=== PATIENT | female | born 1940 | race Caucasian/White ===

== ENCOUNTER → 2020-06-22 10:48 | Outpatient (BNVA) | payer MEDICARE, SELFPAY | PROVIDERS: PCP Internal Medicine; Visit Provider Nurse Practitioner Family | DX: I49.3 Ventricular premature depolarization (principal); I10 Essential (primary) hypertension; I06.1 Rheumatic aortic insufficiency | CPT/HCPCS: Q3014 ==

== ENCOUNTER → 2020-07-04 10:03 | Outpatient (REF) | payer MEDICARE, SELFPAY ==
--- NOTE | 2020-07-04 10:50 | ECG_ITS ---
Hook-up date: 2020-07-04 11:20:00 Duration: 27:13:00 Test Indications: VENTRICULAR PREMATURE DEPOL Medications: 573137 QRS complexes 2434 Ventricular ectopics which represent 2 % of total QRS comp. 13541 Supraventricular ectopics which represent 11 % of total QRS comp. * Paced QRS complexs which represent % of total QRS comp. VENTRICULAR ECTOPY 2387 Isolated 49 Bigeminal Cycles 22 Couplets 1 Runs 3 Beats in Runs 3 Beats LONGEST at 76 BPM at 13:32:22 2020-07-04 3 Beats FASTEST at 76 BPM at 13:32:22 2020-07-04 SUPRAVENTRICULAR ECTOPY 6414 Isolated 3410 Couplets 25 Runs 75 Beats in Runs 3 Beats LONGEST at 119 BPM at 11:51:20 2020-07-04 3 Beats FASTEST at 132 BPM at 11:09:55 2020-07-05 HEART RATES 34 MIN at 10:03:12 2020-07-05 77 AVG 118 MAX at 17:55:12 2020-07-04 LONGEST RR 3.5280 secs at 09:52:42 2020-07-05 S-T LEVELS Channel 1 - 128 mm at 11:20:00 2020-07-04 - 128 mm at 11:20:00 2020-07-04 Channel 2 - 128 mm at 11:20:00 2020-07-04 - 128 mm at 11:20:00 2020-07-04 Channel 3 - 128 mm at 03:03:91 -- - 128 mm at 03:03:91 Underlying rhythm is sinus; Average ventricular rate 77/min; range 34-118/min; About 5% of the time, rate <60/min; Pauses noted, longest 3.5sec at 09:52hrs; similar pauses around the same time; Patient diary not available for review. Referred By: Clair Dolan Overread By: ARMANDO DRUMMOND
== END ==
LOC: HO.CARD 10:03
PROVIDERS: PCP Internal Medicine; Visit Provider Nurse Practitioner Family
DX: I49.3 Ventricular premature depolarization (principal)
CPT/HCPCS: 93226

== ENCOUNTER → 2020-07-23 11:12 | Outpatient (BNVA) | payer MEDICARE, SELFPAY | PROVIDERS: PCP Family Medicine; Visit Provider Nurse Practitioner Family | DX: I49.3 Ventricular premature depolarization (principal); I10 Essential (primary) hypertension; R00.1 Bradycardia, unspecified; I06.1 Rheumatic aortic insufficiency; E78.5 Hyperlipidemia, unspecified; Z78.9 Other specified health status | CPT/HCPCS: Q3014 ==

== ENCOUNTER → 2020-10-25 09:18 | Outpatient (BNVA) | payer MEDICARE, SELFPAY | PROVIDERS: PCP Family Medicine; Visit Provider Nurse Practitioner Family | DX: I49.3 Ventricular premature depolarization (principal); I10 Essential (primary) hypertension; R00.1 Bradycardia, unspecified; I06.1 Rheumatic aortic insufficiency; E78.5 Hyperlipidemia, unspecified; Z78.9 Other specified health status | CPT/HCPCS: 93005; 99212 ==

== ENCOUNTER 2020-10-29 10:35 | Outpatient (REF) | payer MEDICARE, SELFPAY ==
[2020-10-29 12:37] LABS: Hematocrit 48.9 % (37-47); Mean Corpuscular HGB Conc 32.7 g/dl (31.0-35.0); Mean Corpuscular Volume 88.7 fL (80-98); Platelet Count 224 X10*3/uL (160-400); Red Blood Count 5.51 X10*6/uL (4.20-5.50); Red Cell Distribution Width 13.3 % (11.0-16.0); White Blood Count 4.6 X10*3/uL (4.8-10.8)
[2020-10-29 13:12] LABS: B Type Natriuretic Peptide 282 pg/mL (<100)
[2020-10-29 13:23] LABS: Anion Gap 13 (12-20); Blood Urea Nitrogen 21 mg/dL (9-16); Calcium 9.9 mg/dL (8.4-10.2); Carbon Dioxide 28 mmol/L (22-29); Chloride 102 mmol/L (96-108); Cholesterol 352 mg/dL; Estimated Glomerular Filt Rate 56; Glucose Random 100 mg/dL (60-115); HDL Cholesterol 48 mg/dL; LDL Cholesterol Calculated 250 mg/dl; Potassium 4.9 mmol/L (3.3-5.1); Sodium 138 mmol/L (135-145); Triglycerides 273 mg/dL
--- NOTE | 2020-10-29 13:30 | ECG_ITS ---
Hook-up date: 2020-10-29 11:29:00 Duration: 26:53:00 Test Indications: SOB Medications: 212211 QRS complexes 45 Ventricular ectopics which represent <1 % of total QRS comp. 9132 Supraventricular ectopics which represent 9 % of total QRS comp. * Paced QRS complexs which represent % of total QRS comp. VENTRICULAR ECTOPY 45 Isolated 0 Bigeminal Cycles 0 Couplets 0 Runs 0 Beats in Runs * Beats LONGEST at * BPM at :: -- * Beats FASTEST at * BPM at :: -- SUPRAVENTRICULAR ECTOPY 6529 Isolated 1224 Couplets 47 Runs 155 Beats in Runs 6 Beats LONGEST at 104 BPM at 16:09:58 2020-10-29 4 Beats FASTEST at 212 BPM at 18:06:25 2020-10-29 HEART RATES 36 MIN at 07:19:31 2020-10-30 71 AVG 125 MAX at 12:01:25 2020-10-29 LONGEST RR 2.9280 secs at 06:55:01 2020-10-30 S-T LEVELS Channel 1 - 128 mm at 11:29:00 2020-10-29 - 128 mm at 11:29:00 2020-10-29 Channel 2 - 128 mm at 11:29:00 2020-10-29 - 128 mm at 11:29:00 2020-10-29 Channel 3 - 128 mm at 03:04:81 -- - 128 mm at 03:04:81 Underlying rhythm is sinus; Average ventricular rate 71/min; range 36-125/min; Sinus pauses noted in side door man hours, longest about 2.92 seconds; Occasional junctional beats- side door man hours; Frequent supraventricular ectopy- 9%; mostly isolated, some couplets, short runs upto 6 beats; Rare PVCs; Shortness of breath in diary associated with sinus rhythm. Referred By: Clair Dolan Overread By: ARMANDO DRUMMOND
[2020-10-29 13:31] LABS: TSH reflex Free T4 2.05 uIU/mL (0.32-4.0)
== END 2020-10-29 10:36 | disposition home or self-care (01) ==
LOC: HO.LAB 10:35
PROVIDERS: PCP Family Medicine; Visit Provider Nurse Practitioner Family
DX: E78.5 Hyperlipidemia, unspecified (principal); R06.02 Shortness of breath; I49.3 Ventricular premature depolarization; I06.1 Rheumatic aortic insufficiency; I10 Essential (primary) hypertension; Z78.9 Other specified health status
CPT/HCPCS: 36415; 80048; 80061; 83880; 84443; 85027; 93005; 93226; 99212

== ENCOUNTER → 2020-11-05 07:49 | Outpatient (REF) | payer MEDICARE, SELFPAY ==
--- NOTE | ~2020-11-05 | NM_ITS ---
Myocardial perfusion study Indication: Shortness of breath and chest pain to evaluate for myocardial ischemia Technique: The patient was brought in for a Lexiscan perfusion study on 11/05/2020. Patient performed low-level exercise and was injected 0.4 mg of Lexiscan intravenously. Within a minute of injection, 30 mCi of sestamibi was given intravenously. Images were obtained using the SPECT gamma camera interlaced with the gating device. Images were obtained in supine position. Resting perfusion study was performed on 11/06/2020. Patient was administered 30 mCi of sestamibi intravenously at rest. Images were then obtained in supine position. Images obtained with and without CT attenuation. Total DLP 110 mGy-cm. Images were processed with the software and compared side to side in short axis, horizontal long axis and vertical long axis views. Findings: The stress perfusion study showed non attenuated images show normal uptake of radiotracer in all segments of LV myocardium. Attenuation corrected images show mildly reduced uptake in the apex of the LV myocardium. The gated study shows normal LV systolic function with calculated LVEF of 71%. LV cavity is normal in size. The gated study shows normal systolic wall thickening and contraction of segments. Resting study shows no change in perfusion pattern compared to stress perfusion study. Gating at rest reveals normal systolic wall motion with ejection fraction at 70%. The findings are consistent with normal myocardial perfusion. NM/NM abraham perf SPECT rest & str Impression: 1. Myocardial perfusion imaging study shows normal myocardial perfusion 2. Gated LVEF is 71% 3. Transient ischemic dilatation not present EKG is nondiagnostic for ischemia
--- NOTE | 2020-11-05 08:00 | CA_ITS ---
Acquisition Time: 2020-11-05 08:06:29 Total Exercise Time: 00:02:00 Test Indications: Dyspnea Medications: SEE H Protocol: LEXISCAN Max HR: 083 BPM 60% of Pred: 138 BPM Max BP: 160/060 mmHG Max Work Load: 1.0 METS Pharmacological stress test using Lexiscan while sitting. Pt tolerated well, denies any anginal sx. Sx of H/A reversed with aminophyline. EKG after Lexiscan as HR increased pt going into junctional rhythm in and out. Bigerminy's, Non-diagnostic for ischemia. Nuclear images to follow. Normotensive response to test. Test reviewed with Dr. Brito. Referred By: Clair Dolan Overread By: Bushra Null NP
== END ==
LOC: HO.CARD 07:49
PROVIDERS: Visit Provider Nurse Practitioner Family
DX: R07.89 Other chest pain (principal); R00.1 Bradycardia, unspecified; R06.02 Shortness of breath
CPT/HCPCS: 78452; 93016; 93017; 93018; A9500; J0280; J2785

== ENCOUNTER → 2020-11-12 11:19 | Outpatient (BNVA) | payer MEDICARE, SELFPAY | PROVIDERS: PCP Family Medicine; Visit Provider Nurse Practitioner Family | DX: R06.02 Shortness of breath (principal); I49.3 Ventricular premature depolarization; I10 Essential (primary) hypertension; E00.1 Congenital iodine-deficiency syndrome, myxedematous type; I06.1 Rheumatic aortic insufficiency; E78.5 Hyperlipidemia, unspecified; Z78.9 Other specified health status; Z79.899 Other long term (current) drug therapy | CPT/HCPCS: 93005; 99212 ==

== ENCOUNTER 2020-11-23 09:40 | Day surgery (SDC) | payer MEDICARE, SELFPAY ==
[2020-11-16 15:10] VITALS: BMI 39.5
--- NOTE | 2020-11-21 12:28 | P.CONAN_ITS ---
HPI - Anesthesia Eval Consult details Narrative: 80yo F for Pacemaker Insertion, Dual Mult med allergies PMFSH Active Problems Active Problems: All Active Problems (Updated 11/19/20 @ 09:58 by Roro Espinoza PA-C) Bradycardia (Acute) Shortness of breath (Acute) Chest discomfort (Acute) Junctional bradycardia (Acute) Sinus pause (Acute) PAC (premature atrial contraction) (Acute) Lightheadedness (Acute) Statin intolerance (Acute) HLD (hyperlipidemia) (Acute) Rheumatic aortic regurgitation (Acute) HTN (hypertension) (Acute) PVC (premature ventricular contraction) (Acute) Past Medical History Medical History (Updated 11/23/20 @ 14:36 by Roro Espinoza PA-C) Anxiety Arthritis Bradycardia COVID-19 vaccine series completed H/O shortness of breath Hepatitis HLD (hyperlipidemia) HTN (hypertension) Hx of cancer of uterus Junctional bradycardia PAC (premature atrial contraction) Pacemaker (~11/2020) PVC (premature ventricular contraction) Rheumatic aortic regurgitation Sinus pause Statin intolerance Family History Family History Father HTN (hypertension) Mother No problems noted. Surgical History Surgical History (Updated 11/23/20 @ 14:36 by Roro Espinoza PA-C) H/O: hysterectomy History of cataract extraction History of pacemaker (~11/2020) Hx of colonoscopy Hx of tonsillectomy Social History Social History Household Members: Spouse Housing: House Housing Other:: Resides at [facility] Are you a primary disabilities caregiver to a significant other at home: No Do you presently have visiting nurse or other home services: No Smoking Status: Former smoker Years Smoked: > 45 yrs ago service: No Current occupational status: retired Meds Allergies Allergy/AdvReac Type Severity Reaction Status Date / Time hydrochlorothiazide Allergy Severe Unknown Verified 11/16/20 15:03 penicillin V Allergy Severe unk Verified 11/16/20 15:03 Penicillins [PENICILLINS] Allergy Severe DIFFICULTY Verified 11/16/20 15:03 BREATHING sertraline [Zoloft] Allergy Severe unk Verified 11/16/20 15:03 clindamycin [CLINDAMYCIN] Allergy Unknown RASH Verified 11/16/20 15:03 clonazepam [CLONAZEPAM] Allergy Unknown DIZZINESS, Verified 11/16/20 15:03 dizzy nausea lisinopril Allergy Unknown didn't Verified 11/16/20 15:03 feel well on med losartan Allergy Unknown didn't Verified 11/16/20 15:03 feel well on med metoprolol Allergy Unknown didn't Verified 11/16/20 15:03 feel well on med paroxetine [From PAXIL] Allergy Unknown UNKNOWN Verified 11/16/20 15:03 propranolol Allergy Unknown sick Verified 11/16/20 15:03 risedronate sodium Allergy Unknown UNKNOWN Verified 11/16/20 15:03 [From ACTONEL] valsartan Allergy Unknown didn't Verified 11/16/20 15:03 feel well on med benzalkonium chloride AdvReac Unknown CONFUSION Verified 11/16/20 15:03 [From TRAVATAN] escitalopram [From LEXAPRO] AdvReac Unknown AGITATION Verified 11/16/20 15:03 red yeast rice AdvReac Unknown STOMACH Verified 11/16/20 15:03 [RED YEAST RICE] UPSET timolol [From ISTALOL] AdvReac Unknown CONFUSION Verified 11/16/20 15:03 travoprost [From TRAVATAN] AdvReac Unknown CONFUSION Verified 11/16/20 15:03 Travatan Allergy Severe unk Uncoded 11/16/20 15:03 Eye Drops Allergy Mild Unknown Uncoded 11/16/20 15:03 CHOLESTEROL MEDS Allergy Unknown LIVER Uncoded 11/16/20 15:03 PROBLEMS Clindamycin HCl Allergy Unknown can only Uncoded 11/16/20 15:03 take 150MG Diltiazem HCl ER Allergy Unknown didn't Uncoded 11/16/20 15:03 feel well on med Home Medications Medication Instructions Recorded Confirmed Last Taken Type flu vacc [id number](65yr up)-PF 240 ml IM 06/22/20 11/12/20 Unknown History mcg/0.7 mL intramuscular syringe furosemide 20 mg tablet 20 mg PO Q OTHER DAY 06/22/20 11/23/20 2 Days Ago History ~11/21/20 irbesartan 300 mg tablet 150 mg PO BID 07/23/20 11/16/20 11/23/20 06:00 History alprazolam 0.5 - 1 tab PO BID PRN 11/16/20 11/23/20 Unknown History aspirin 81 mg PO DAILY 11/16/20 11/16/20 11/21/20 22:30 History calcium carbonate [Calcium 600] 1,200 mg PO DAILY 11/16/20 11/23/20 1 Day Ago History ~11/22/20 cholecalciferol (vitamin D3) 25 mcg PO DAILY 11/16/20 11/23/20 11/22/20 History [Vitamin D3] magnesium oxide 400 mg PO DAILY 11/16/20 11/23/20 11/22/20 History spironolactone 25 mg tablet 12.5 mg PO DAILY tab 11/16/20 11/23/20 11/23/20 History Exam Exam Date and Time: November 21, 2020 1228 Height,Weight and Vital Signs: Height 5 ft 1 in Weight 94.999 kg Pertinent Lab Results Pertinent Lab Results: Laboratory Tests 10/29/20 10/29/20 12:03 12:03 WBC 4.6 L Hgb 16.0 Hct 48.9 H Plt Count 224 Sodium 138 Potassium 4.9 Chloride 102 Carbon Dioxide 28 BUN 21 H Creatinine 0.95 Narrative Narrative: echo 02/29/2020 normal EF, mild asymmetric septal hypertrophy, mild AR. Nuclear stress test done 11/05/20 shows normal myocardial perfusion imaging. 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 EKG in office 11/12/20 shows SB, rate 43 Assessment and Plan Assessment Anesthesia Assessment: Chart Reviewed
[2020-11-23] VITALS (13 sets, daily range): BP systolic 114–175; BP diastolic 61–81; PULSE 64–82; RESP 12–18; TEMP 36.1–36.7; O2SAT 94–100
--- NOTE | ~2020-11-23 | FL_ITS ---
EXAMINATION: XR FLUOROSCOPY WITH IMAGES CLINICAL INFORMATION: Pacemaker placement COMPARISON: None. TECHNIQUE: Fluoroscopy performed by Dr. Le Munoz. Fluoroscopy time: 273 seconds Dose: 80 mgy Images: 1 FINDINGS: Single image demonstrates a left subclavian dual chamber pacemaker with 1-lead projecting over the right atrium and one lead projecting over the right ventricle. FL/FL guidance in OR IMPRESSION: Fluoroscopy guidance for pacemaker placement.
--- NOTE | ~2020-11-23 | XR_ITS ---
EXAMINATION: XR CHEST CLINICAL INFORMATION: Pacemaker COMPARISON: None TECHNIQUE: Frontal view of the chest was obtained. FINDINGS: There is a dual-chamber left subclavian pacemaker in satisfactory fashion with leads projecting over the right atrium and right ventricle. The cardiac and mediastinal contours are otherwise normal. The lungs are clear. There is no pleural effusion or pneumothorax. There are degenerative changes of the spine.. XR/XR chest 1V IMPRESSION: Satisfactory position of left subclavian dual chamber pacemaker. No pneumothorax.
[2020-11-23] MEDS: vancomycin HCL 1,500 MG in 0.9 % Sodium Chloride 500 ML 333.33 MG IV (11:15)
--- NOTE | 2020-11-23 11:20 | P.CONAN_ITS ---
[facility] Active Problems Active Problems: All Active Problems (Updated 11/21/20 @ 12:29 by Shelby trivedi) PAC (premature atrial contraction) (Acute) Sinus pause (Acute) Junctional bradycardia (Acute) Bradycardia (Acute) Shortness of breath (Acute) Chest discomfort (Acute) Lightheadedness (Acute) Statin intolerance (Acute) HLD (hyperlipidemia) (Acute) Rheumatic aortic regurgitation (Acute) HTN (hypertension) (Acute) PVC (premature ventricular contraction) (Acute) Past Medical History Medical History (Updated 11/21/20 @ 12:29 by Shelby Rascon) Anxiety Arthritis Bradycardia COVID-19 vaccine series completed H/O shortness of breath Hepatitis HLD (hyperlipidemia) HTN (hypertension) Hx of cancer of uterus Junctional bradycardia PAC (premature atrial contraction) PVC (premature ventricular contraction) Rheumatic aortic regurgitation Sinus pause Statin intolerance Family History Family History Father HTN (hypertension) Mother No problems noted. Surgical History Surgical History (Updated 11/19/20 @ 09:59 by Roro Espinoza PA-C) H/O: hysterectomy History of cataract extraction Hx of colonoscopy Hx of tonsillectomy Social History Social History Housing Other:: Resides at [facility] Living Are you a primary primary care md to a significant other at home: No Do you presently have visiting nurse or other home services: Yes Smoking Status: Former smoker Years Smoked: > 45 yrs ago Use of substances other than those prescribed or required for medical reasons: No Have you been hit, kicked, punched, or otherwise hurt by someone within the past year? If so, by whom?: No Are you DNR?: No Advance Directives: No Advance Directives Information Provided: No Advance Directives on File: No Recently lost weight without trying: No Eating poorly because of decreased appetite: No Nutrition Risks: No Nutritional Risk Patient : No Meds Allergies Allergy/AdvReac Type Severity Reaction Status Date / Time hydrochlorothiazide Allergy Severe Unknown Verified 11/16/20 15:03 penicillin V Allergy Severe unk Verified 11/16/20 15:03 Penicillins [PENICILLINS] Allergy Severe DIFFICULTY Verified 11/16/20 15:03 BREATHING sertraline [Zoloft] Allergy Severe unk Verified 11/16/20 15:03 clindamycin [CLINDAMYCIN] Allergy Unknown RASH Verified 11/16/20 15:03 clonazepam [CLONAZEPAM] Allergy Unknown DIZZINESS, Verified 11/16/20 15:03 dizzy nausea lisinopril Allergy Unknown didn't Verified 11/16/20 15:03 feel well on med losartan Allergy Unknown didn't Verified 11/16/20 15:03 feel well on med metoprolol Allergy Unknown didn't Verified 11/16/20 15:03 feel well on med paroxetine [From PAXIL] Allergy Unknown UNKNOWN Verified 11/16/20 15:03 propranolol Allergy Unknown sick Verified 11/16/20 15:03 risedronate sodium Allergy Unknown UNKNOWN Verified 11/16/20 15:03 [From ACTONEL] valsartan Allergy Unknown didn't Verified 11/16/20 15:03 feel well on med benzalkonium chloride AdvReac Unknown CONFUSION Verified 11/16/20 15:03 [From TRAVATAN] escitalopram [From LEXAPRO] AdvReac Unknown AGITATION Verified 11/16/20 15:03 red yeast rice AdvReac Unknown STOMACH Verified 11/16/20 15:03 [RED YEAST RICE] UPSET timolol [From ISTALOL] AdvReac Unknown CONFUSION Verified 11/16/20 15:03 travoprost [From TRAVATAN] AdvReac Unknown CONFUSION Verified 11/16/20 15:03 Travatan Allergy Severe unk Uncoded 11/16/20 15:03 Eye Drops Allergy Mild Unknown Uncoded 11/16/20 15:03 CHOLESTEROL MEDS Allergy Unknown LIVER Uncoded 11/16/20 15:03 PROBLEMS Clindamycin HCl Allergy Unknown can only Uncoded 11/16/20 15:03 take 150MG Diltiazem HCl ER Allergy Unknown didn't Uncoded 11/16/20 15:03 feel well on med Active Medications: Current Medications Generic Name Dose Route Start Last Admin Trade Name Freq PRN Reason Stop Dose Admin Lactated Ringer's 1,000 mls @ 20 mls/hr 11/23/20 10:30 Lr IVCONT .Q24H HIEU Vancomycin HCl 1,500 mg/ 500 mls @ 333.333 mls/hr 11/23/20 11:15 11/23/20 11:15 Sodium Chloride IV 11/23/20 12:44 333.33 mls/hr ONCE ONE Administration Home Medications Medication Instructions Recorded Confirmed Last Taken Type flu vacc [id number](65yr up)-PF 240 ml IM 06/22/20 11/12/20 Unknown History mcg/0.7 mL intramuscular syringe furosemide 20 mg tablet 20 mg PO Q OTHER DAY 06/22/20 11/16/20 Unknown History irbesartan 300 mg tablet 150 mg PO BID 07/23/20 11/16/20 11/23/20 06:00 History alprazolam 0.5 - 1 tab PO BID PRN 11/16/20 11/16/20 Unknown History aspirin [Aspir-81] 81 mg PO DAILY 11/16/20 11/16/20 11/21/20 22:30 History calcium carbonate [Calcium 600] 1,200 mg PO DAILY 11/16/20 11/16/20 Unknown History cholecalciferol (vitamin D3) 25 mcg PO DAILY 11/16/20 11/16/20 Unknown History [Vitamin D3] magnesium oxide 400 mg PO DAILY 11/16/20 11/16/20 Unknown History spironolactone 25 mg tablet 12.5 mg PO DAILY tab 11/16/20 11/16/20 Unknown History Exam Exam Date and Time: November 23, 2020 1120 Height,Weight and Vital Signs: Height 5 ft 1 in Weight 94.999 kg Last Vital Signs Temp 97 F 11/23/20 10:48 Pulse 82 11/23/20 10:48 Resp 16 11/23/20 10:48 BP 121/67 11/23/20 10:48 Pulse Ox 97 11/23/20 10:48 Airway Mallampati Class: II TM Dist: >3cm Neck ROM: Full Denture: Upper Heart: RRR Lungs: CTA
--- NOTE | 2020-11-23 13:55 | W.PM.OPN ---
Operative Note Operative Note Date of Service: 11/23/20 Narrative: Preoperative diagnosis: Symptomatic bradycardia with pauses Postoperative diagnosis: Same Operation: Placement of dual-chamber permanent pacemaker with fluoroscopic guidance Surgeon: Le Munoz MD Specimens: None EBL: 5 cc Operative findings: The pacemaker placed was a Medtronic Geeta MRI SureScan serial number [id number]. The atrial lead was a 45 cm Medtronic serial number [id number]. The ventricular lead was a Medtronic 52 cm serial number [id number]. Parameters in the right atrial lead sensing was 1.5 atrial flutter with impedance of 507. In the ventricular lead threshold was 0.6 volts at 0.5 milliseconds with an impedance of 520 Ohms. Patient tolerated procedure well. Operation in detail: The patient was brought to the operating room, placed supine on the operating room table, anesthesia moderate of ices were placed, and the patient was gently sedated. A time-out was performed confirming the correct patient site and procedure. After injection of local anesthetic, a 3 cm incision was made in the left infraclavicular region and carried down to the pectoralis fascia with electrocautery. The patient was then placed in Trendelenburg and an 18 gauge needle was used to access subclavian vein on the 1st take. And a wire was placed into the right atrium under fluoroscopic guidance. A 2nd 18 gauge needle was then used to access the subclavian vein again on the 1st ache and a wire was placed under fluoroscopic guidance and parked in the right atrium. The patient was then taken out of Trendelenburg and a pocket was formed using blunt and electrocautery dissection. The 1st 6 [place] sheath was then placed over wire and the wire and dilator were removed. The ventricular lead was then placed through the sheath and parked in the right atrium and the peel-away sheath was removed. After several attempts using a curved stylet we were eventually able to access the right ventricle and the tip of the lead was positioned at the right ventricular apex. The endocardial screw was deployed and the lead was tested with excellent parameters above. This lead was then secured with silk sutures to the pectoralis fascia. The 2nd 6 [place] sheath was then placed over the 2nd wire and a wire dilator removed. The atrial lead was then placed and parked in the right atrium. AJ stylet was used to position this in the right atrial appendage. The endocardial screws deployed and the lead was tested with excellent parameters above. This lead was also secured with silk sutures to the pectoralis fascia. The pocket was then copiously irrigated with antibiotic solution. The leads were then placed in their appropriate receptacles and the pacemaker was tested again with excellent parameters. The temporary pacing wire was then removed under fluoroscopic guidance and none of the leads changed position. The generator and excess lead was then placed into the pocket. The wound was then closed with a deep running 3-0 Vicryl suture followed by running 3-0 Vicryl suture and Dermabond glue in the skin. The patient was then brought to the PACU in stable condition.
[2020-11-23] MEDS: Furosemide 20 MG TABLET PO (17:13)
[2020-11-23] MEDS: 0.9 % Sodium Chloride Flush 3 ML SYRINGE IVFLUSH (17:14)
[2020-11-24] MEDS: 0.9 % Sodium Chloride Flush 3 ML SYRINGE IVFLUSH ×2 (00:13→09:48)
[2020-11-24 03:48] VITALS: BP 149/71; PULSE 75; RESP 18; TEMP 36.4; O2SAT 96
[2020-11-24 07:51] VITALS: BP 145/64; PULSE 63; RESP 20; TEMP 35.9; O2SAT 94
[2020-11-24] MEDS: Magnesium Oxide 400 MG TABLET PO (09:43)
[2020-11-24 09:44] VITALS: BP 125/58; PULSE 64
[2020-11-24] MEDS: Spironolactone 25 MG TABLET 12.5 MG PO (09:44)
[2020-11-24] MEDS: Aspirin Enteric Coated 81 MG TABLET.DR PO (09:48)
[2020-11-24] MEDS: Cholecalciferol (Vitamin D3) 25 MCG TABLET PO (09:50)
[2020-11-24 11:31] VITALS: O2SAT 96
[2020-11-24 11:35] VITALS: BP 148/65; PULSE 75; RESP 20; TEMP 35.9; O2SAT 94
--- NOTE | 2020-11-24 11:49 | P.DS_ITS ---
DS: Providers Provider Date of Service: 11/24/20 Primary care physician: Kaelyn Mckinney MD DS: Medications Discharge Medications Home Medications: Home Medications Medication Instructions Recorded Confirmed flu vacc [id number](65yr up)-PF 240 ml IM 06/22/20 11/12/20 mcg/0.7 mL intramuscular syringe furosemide 20 mg tablet 20 mg PO Q OTHER DAY 06/22/20 11/23/20 irbesartan 300 mg tablet 150 mg PO BID 07/23/20 11/16/20 alprazolam 0.5 - 1 tab PO BID PRN 11/16/20 11/23/20 aspirin 81 mg PO DAILY 11/16/20 11/16/20 calcium carbonate [Calcium 600] 1,200 mg PO DAILY 11/16/20 11/23/20 cholecalciferol (vitamin D3) 25 mcg PO DAILY 11/16/20 11/23/20 [Vitamin D3] magnesium oxide 400 mg PO DAILY 11/16/20 11/23/20 spironolactone 25 mg tablet 12.5 mg PO DAILY tab 11/16/20 11/23/20 DS: Summary Time Spent with Patient Time attestation: Total time spent providing and/or coordinating discharge services: 15 minutes Discharge summary: Patient had a placement of dual-chamber permanenet pacemaker with fluoroscopic guidance on 11/23/[address] eL Munoz for symptomatic bradycardia with pauses. Please see operative note. Post-operatively, patient did well overall. Her telemetry strip revealed NSR in the 80's w/ 1st degree AV block and occasional PAC's. She did have a 5 beat run of VTACH this am, asymptomatic. RN reported to this provider. Otherwise, patient denies any symptoms of dizziness, lightheadedness, or foggyness following her sugery and feels back to baseline. She denies any chest pain or palpitations. Pacemaker interrogated this am (11/24/20) and cleared for discharge per Dr. Munoz. Patient was instructed that she will have a post-op appointment in 2 weeks at the [facility] office and will need to call to schedule her follow-up appointment. She is not to raise her left arm above her head, across her shoulder, or behind her back for 8 weeks. She is also to wear the left arm sling for 2 days following her surgery. Patient verbalized understanding. She may shower day 2 of her surgery. Discharge coordination time: Less than 30 minutes Quality: Stroke Does the patient have a stroke diagnosis?: No Physical Exam Vital Signs: Vital Signs: Last Vital Signs Temp 96.6 F L 11/24/20 11:35 Pulse 75 11/24/20 11:35 Resp 20 11/24/20 11:35 BP 148/65 H 11/24/20 11:35 Pulse Ox 94 11/24/20 11:35 Body Mass Index 39.5 Const: General: cooperative, healthy appearing, no acute distress, alert and awake Orientation/consciousness: oriented to person, oriented to place, oriented to time and patient oriented x3 HENMT: Head: Yes normal to inspection, Yes normocephalic and Yes atraumatic Eyes: General: appearance normal, both eyes and all related structures Neck: Neck: Yes normal visual inspection, Yes no lymphadenopathy, Yes trachea midline, Yes supple, No tracheal deviation and Yes no JVD Lymphatic: no lymphadenopathy noted Chest: Chest palpation & inspection: normal inspection of the chest and no crepitus Resp: Effort & Inspection: normal respiratory effort, able to speak in complete sentences, no cough, no respiratory distress, no retractions, not tachypneic, no tracheal deviation, no use of accessory muscles and symmetric chest movement Cardio: Other: Right anterior pacemaker site healing well. No erythema, edema, or drainage to site. No hematoma or induration noted on exam. Jugular venous distension: no JVD Palpation: normal PMI Rate: regular rate Rhythm: regular rhythm Heart sounds: S1 normal heart sound present, S2 normal heart sound present, no click, no gallops, no murmurs and no rubs Peripheral pulses: Peripheral pulses 2+ throughout GI: Inspection: Yes normal to inspection and No distended Palpation (GI): Soft to palpation, nontender, no guarding and not rigid Auscultation: normal bowel sounds Skin: General skin exam: no rashes or lesions noted and dry skin Neuro: General: oriented to person, oriented to place, oriented to time and patient oriented x3 Speech: No Abnormal speech present Extrem: Other: Left arm in sling General: Yes normal to inspection, Yes capillary refill normal, Yes no clubbing, cyanosis or edema and Yes no pedal edema Psych: Appearance: grossly normal and well kempt Mental Status: mental status grossly normal Speech and movement: Normal speech and movement present Affect: normal affect Attitude: cooperative Thought process: Normal thought process present Insight: Good insight present (Psych) Discharge Plan Discharge Patient Disposition: Home, Self-Care Referrals: Kaelyn Horn MD [Primary Care Provider] - 1 Week Discharge Medications: Continued spironolactone [Aldactone] 25 mg tablet 12.5 mg PO DAILY RF: 0 aspirin 81 mg Tablet,Delayed Release (Dr/Ec) 81 mg PO DAILY RF: 0 alprazolam 0.5 mg tablet 0.5 - 1 tab PO BID PRN (Reason: Anxiety) RF: 0 cholecalciferol (vitamin D3) [Vitamin D3] 25 mcg (1,000 unit) Capsule 25 mcg PO DAILY RF: 0 magnesium oxide 400 mg magnesium Capsule 400 mg PO DAILY RF: 0 calcium carbonate [Calcium 600] 600 mg calcium (1,500 mg) Tablet 1,200 mg PO DAILY RF: 0 furosemide 20 mg tablet 20 mg PO Q OTHER DAY RF: 0 flu vacc [id number](65yr up)-PF 240 mcg/0.7 mL syringe IM RF: 0 irbesartan 300 mg tablet 150 mg PO BID RF: 0 Discharge Orders: Discharge Order (Routine); Ordered 11/24/20 Ordered By: Caroline Wray Patient Instructions: Pacemaker (DC), Pacemaker (GEN) Activity Restrictions/Additional Instructions: ACTIVITY: * Do not lift arm above your head, across your chest, or behind your back for at least 8 weeks. * Arm should be in sling for 48 hours following your surgery. WOUND CARE: * Assess pacemaker chest incision for any signs or symptoms of infection (redness, swelling, or pus-like drainage) * Keep incision clean, dry, and intact * May use gentle fragrant-free soap and water to clean incision, pat dry. * You may shower on Thursday11/25/20 * Assess for excessive bruising. Notify [facility] office if this occurs. CALL THE OFFICE IF: * You notice excessive bleeding to pacemaker site * You have excessive bruising under pacemaker site * You are experiencing any fevers, chills, lightheadedness, palpitations, chest pain, or shortness of breath FOLLOW-UP APPOINTMENT: * You will have a 2-week post-op follow-up appointment with Dr. Le Munoz at the [facility] office at [address] [place] [address] * The phone number is [phone] * Please call the office to schedule your appointment if you do not have one already
--- NOTE | 2020-11-24 13:23 | HO.POSTANES ---
Post Anesthesia Evaluation Post Anesthesia Evaluation Vital Signs: Vital Signs Temp Pulse Resp BP Pulse Ox 11/24/20 11:35 96.6 F L 75 20 148/65 H 94 11/24/20 11:31 96 11/24/20 09:44 64 125/58 L 11/24/20 07:51 96.6 F L 63 20 145/64 H 94 11/24/20 03:48 97.6 F 75 18 149/71 H 96 Anesthesia: General LMA Mental Status: Awake Pain Control: Satisfactory Nausea/Vomiting: None Hydration: Adequate Anesthesia-Related Issues: No Anes. Related Issues
--- NOTE | 2020-11-24 13:54 | MHC.CM.PN ---
CM met with and her son who was at bedside. pt reports she is a resident at [facility] and typically she is independent with self care. She reports she does have access to [employer] services and plans to request them when she returns home so that they can assist her with showers and dressing. Pt reports she does have a HCP completed naming her son, Jani as her agent. Pt was discharged today, back to [facility]. Pts son transported
--- NOTE | 2020-11-24 14:19 | PC.NURSE ---
Around 10 am patient had 5 beat run of VTACH x2. Notified Caroline Wray from thoracic surgery care of patient for s/p pacemaker insertion. No new orders. Rep for pacemaker at bedside, patient education given and pacemaker checked. Discharge instructions given to patient and family member. Follow up in two weeks with thoracic. IV and tele pack removed. Accompanied by family member. Patient discharged.
== END 2020-11-24 13:45 | disposition home or self-care (01) ==
LOC: HO.SSS 09:40 → HO.IMC 14:43
PROVIDERS: PCP Family Medicine; Visit Provider Surgery
PROC: (CPT 33208; principal; 2020-11-23 12:30)
DX: I44.0 Atrioventricular block, first degree (principal); I49.1 Atrial premature depolarization; I49.3 Ventricular premature depolarization; I45.5 Other specified heart block; I06.1 Rheumatic aortic insufficiency; I10 Essential (primary) hypertension; R53.83 Other fatigue; R06.02 Shortness of breath; R42 Dizziness and giddiness; T46.6X5A Adverse effect of antihyperlipidemic and antiarteriosclerotic drugs, initial encounter; E78.5 Hyperlipidemia, unspecified; F41.9 Anxiety disorder, unspecified; Z79.82 Long term (current) use of aspirin; Z79.899 Other long term (current) drug therapy; Z88.0 Allergy status to penicillin; Z88.8 Allergy status to other drugs, medicaments and biological substances; Z87.891 Personal history of nicotine dependence
CPT/HCPCS: 33208; 71045; C1785; C1892; C1898; J2250; J3010; J3370

== ENCOUNTER → 2020-12-07 09:43 | Outpatient (BNVA) | payer MEDICARE, SELFPAY | PROVIDERS: PCP Family Medicine; Visit Provider Surgery | DX: R00.1 Bradycardia, unspecified (principal); Z79.899 Other long term (current) drug therapy; Z45.018 Encounter for adjustment and management of other part of cardiac pacemaker | CPT/HCPCS: 99212 ==

== ENCOUNTER → 2021-01-10 13:31 | Outpatient (BNVA) | payer MEDICARE, SELFPAY | PROVIDERS: PCP Family Medicine; Visit Provider Internal Medicine | DX: I49.3 Ventricular premature depolarization (principal); I49.1 Atrial premature depolarization; R00.1 Bradycardia, unspecified | CPT/HCPCS: 99212 ==

== ENCOUNTER → 2021-01-14 12:26 | Outpatient (BNVA) | payer MEDICARE, SELFPAY | PROVIDERS: PCP Family Medicine; Referring Provider Family Medicine; Visit Provider Internal Medicine ==

== ENCOUNTER → 2021-02-11 14:13 | Outpatient (BNVA) | payer MEDICARE, SELFPAY | PROVIDERS: PCP Family Medicine; Visit Provider Internal Medicine ==

== ENCOUNTER → 2021-04-16 12:52 | Outpatient (BNVA) | payer MEDICARE, SELFPAY | PROVIDERS: PCP Family Medicine; Referring Provider Family Medicine; Visit Provider Nurse Practitioner Family | DX: Z45.018 Encounter for adjustment and management of other part of cardiac pacemaker (principal); I49.3 Ventricular premature depolarization; I49.1 Atrial premature depolarization; I10 Essential (primary) hypertension | CPT/HCPCS: 99212 ==

== ENCOUNTER → 2021-07-17 13:43 | Outpatient (BNVA) | payer MEDICARE, SELFPAY | PROVIDERS: PCP Family Medicine; Referring Provider Family Medicine; Visit Provider Internal Medicine | DX: I49.3 Ventricular premature depolarization (principal); I49.1 Atrial premature depolarization; E78.5 Hyperlipidemia, unspecified; Z79.82 Long term (current) use of aspirin | CPT/HCPCS: 93005; 99212 ==

== ENCOUNTER 2021-08-05 10:50 | Outpatient (REF) | payer MEDICARE, SELFPAY ==
[2021-08-05 13:17] LABS: Alanine Aminotransferase 12 U/L (0-31); Albumin Level 4.1 g/dL (3.5-5.0); Alkaline Phosphatase 71 U/L (39-117); Aspartate Amino Transferase 20 U/L (5-31); Bilirubin Direct 0.2 mg/dL (0.0-0.5); Bilirubin Total 0.7 mg/dL (0.0-1.0); Total Protein 6.7 g/dL (6.5-8.0)
== END 2021-08-05 10:51 | disposition home or self-care (01) ==
LOC: HO.LAB 10:50
PROVIDERS: PCP Family Medicine; Visit Provider Internal Medicine
DX: K75.9 Inflammatory liver disease, unspecified (principal)
CPT/HCPCS: 36415; 80076

== ENCOUNTER → 2021-11-11 12:35 | Outpatient (BNVA) | payer MEDICARE, SELFPAY | PROVIDERS: PCP Family Medicine; Referring Provider Family Medicine; Visit Provider Internal Medicine | DX: Z45.018 Encounter for adjustment and management of other part of cardiac pacemaker (principal); I49.3 Ventricular premature depolarization; I10 Essential (primary) hypertension; R00.1 Bradycardia, unspecified; E78.5 Hyperlipidemia, unspecified | CPT/HCPCS: 93280; 99212 ==

== ENCOUNTER 2022-01-31 08:36 | Outpatient (REF) | payer MEDICARE, SELFPAY ==
[2022-01-31 09:30] LABS: Hematocrit 46.7 % (37.0-47.0); Hemoglobin 15.5 g/dl (12.0-16.0); Mean Corpuscular HGB Conc 33.2 g/dl (31.0-35.0); Mean Corpuscular Hemoglobin 29.2 pg (27.0-33.0); Mean Corpuscular Volume 87.9 fL (80.0-98.0); Mean Platelet Volume 10.9 fL (9.4-12.3); Platelet Count 199 X10*3/uL (160-400); Red Blood Count 5.31 X10*6/uL (4.20-5.50); Red Cell Distribution Width 13.3 % (11.0-16.0); White Blood Count 3.5 X10*3/uL (4.8-10.8)
[2022-01-31 09:59] LABS: Albumin Level 4.3 g/dL (3.5-5.0); Anion Gap 15 (12-20); Blood Urea Nitrogen 23 mg/dL (9-16); Calcium 9.5 mg/dL (8.4-10.2); Carbon Dioxide 27 mmol/L (22-29); Chloride 103 mmol/L (96-108); Estimated Glomerular Filt Rate 51; Magnesium 2.1 mg/dL (1.6-2.6); Phosphorus 3.9 mg/dL (2.7-4.5); Potassium 4.6 mmol/L (3.3-5.1); Sodium 140 mmol/L (135-145)
[2022-01-31 10:13] LABS: Vitamin D 25-OH Total 39.1 ng/mL (>30)
[2022-01-31 11:13] LABS: Appearance Urine HAZY; Color Urine YELLOW; Glucose Urine UA NEG (NEG); Leukocyte Esterase Urine TRACE (NEG); Nitrite Urine NEG (NEG); Specific Gravity - Urine 1.015 (1.005-1.025); Urine Blood NEG (NEG); Urine Ketones NEG (NEG); Urine Protein NEG (NEG-TRACE)
[2022-01-31 11:29] LABS: Bacteria Urine TRACE /LPF; RBC Urine 0 /HPF (0); Squamous Epithelial Cell Urine 1+ /LPF; WBC Urine 0-2 /HPF (0-4)
[2022-01-31 12:36] LABS: Creatinine Urine 107.83 mg/dL; Microalbum/Creatinine Ratio Ur 8.3 ug/mg cr; Total Protein Urine Random < 7 mg/dL (<12)
[2022-02-02 13:06] LABS: Calcium (PTHI) 9.5 mg/dL (8.6-10.4); PTHI 28 pg/mL (16-77)
== END 2022-01-31 08:37 | disposition home or self-care (01) ==
LOC: HO.LAB 08:36
PROVIDERS: PCP Family Medicine; Visit Provider Internal Medicine Nephrology
DX: N18.31 Chronic kidney disease, stage 3a (principal)
CPT/HCPCS: 36415; 80051; 81001; 82040; 82043; 82306; 82310; 82565; 83735; 83970; 84100; 84156; 84520; 85027; 87086

== ENCOUNTER 2022-02-07 13:46 | Outpatient (REF) | payer MEDICARE, SELFPAY ==
--- NOTE | ~2022-02-07 | US_ITS ---
EXAMINATION: US RETROPERITONEAL LIMITED (RENAL ONLY) CLINICAL INFORMATION: CKD 3. COMPARISON: None TECHNIQUE: Real-time imaging of the kidneys. FINDINGS: RIGHT KIDNEY: 8.6 x 4.1 x 4.9 cm (SAG x AP x TRV). The kidney is normal in size and contour. Renal cortical thickness is normal. No calculi or focal parenchymal lesions. No hydronephrosis. LEFT KIDNEY: 9.3 x 4.6 x 4.4 cm (SAG x AP x TRV). The kidney is normal in size, contour, and echogenicity. Renal cortical thickness is normal. There is a 3 mm echogenic density in the midpole with twinkle artifact questionable for a small stone. There is mild fullness of the left renal collecting system. No focal parenchymal lesions. US/US renal BI IMPRESSION: Normal right kidney. Question small left renal stone and mild fullness of the left renal collecting system.
== END 2022-02-07 13:47 | disposition home or self-care (01) ==
LOC: HO.HMGCX 13:46
PROVIDERS: PCP Family Medicine; Visit Provider Internal Medicine Nephrology
DX: N18.31 Chronic kidney disease, stage 3a (principal)
CPT/HCPCS: 76775

== ENCOUNTER 2022-05-03 23:32 | Emergency (ER) | payer MEDICARE, SELFPAY ==
--- NOTE | ~2022-05-03 | US_ITS ---
EXAMINATION: US VENOUS ULTRASOUND WITH DOPPLER LOWER EXTREMITY, BILATERAL CLINICAL INFORMATION: Bilateral lower extremity pain and swelling. COMPARISON: None TECHNIQUE: Ultrasound of the deep veins is performed from the hip to the calf with compression sonography and color and pulse Doppler assessment. Spectral analysis with color-flow imaging is performed. FINDINGS: RIGHT: There is normal venous compression and respiratory variation and augmented flow. The visualized common femoral vein, superficial femoral vein, profunda femoral vein, popliteal vein, and the trifurcation region shows no evidence of deep venous thrombosis. There is a 5.6 x 2 x 4 cm Miles's cyst. LEFT: There is normal venous compression and respiratory variation and augmented flow. The visualized common femoral vein, superficial femoral vein, profunda femoral vein, popliteal vein, and the trifurcation region shows no evidence of deep venous thrombosis. There is no significant popliteal fossa cyst. If the patient's symptoms persist, followup ultrasound in 5 days 7 days might be of value to exclude proximal propagation from a non-visualized calf vein. US/US venous duplex LE BI IMPRESSION: No DVT demonstrated in the bilateral lower extremities.
--- NOTE | ~2022-05-03 | XR_ITS ---
EXAMINATION: XR CHEST CLINICAL INFORMATION: Edema COMPARISON: 11/23/2020 TECHNIQUE: Frontal view of the chest was obtained. FINDINGS: Left chest wall pacer with leads over the right atrium and right ventricle. The lungs are well expanded. There is no focal consolidation, edema, or effusion. No pneumothorax. The cardiomediastinal silhouette is within normal limits of size with a calcified aorta. No acute osseous abnormality. XR/XR chest 1V IMPRESSION: No acute pulmonary disease.
--- NOTE | ~2022-05-03 | CT_ITS ---
EXAMINATION: CT ABDOMEN AND PELVIS WITHOUT CONTRAST CLINICAL INFORMATION: Bilateral flank pain COMPARISON: None TECHNIQUE: Multidetector volumetric imaging was performed from the superior aspect of the liver through the pubic symphysis. Sagittal and coronal reformatted images were obtained on the technologist's workstation. This CT examination was performed using dose optimization techniques as appropriate, variously including the following: *Automated exposure control *Adjustment of mA and/or kV according to patient size (this includes techniques or standardized protocols for targeted exams where dose is matched to indication/reason for exam; i.e. extremities or head) *Use of iterative reconstruction technique DLP: 876 mGy-cm FINDINGS: LUNG BASES: The visualized lung bases are unremarkable. LIVER, GALLBLADDER, AND BILIARY TREE: The liver is normal in size, shape, and attenuation. No focal hepatic lesion or biliary ductal dilatation is present. Stones are seen in the gallbladder lumen. No wall thickening or pericholecystic fluid. PANCREAS: Unremarkable. SPLEEN: Unremarkable. ADRENAL GLANDS: Unremarkable. KIDNEYS AND URETERS: The kidneys are normal in size, shape, and attenuation. No hydronephrosis, hydroureter, or calculi seen. No perinephric stranding. BLADDER: Unremarkable. GASTROINTESTINAL TRACT: The stomach is unremarkable. Normal caliber small bowel. No obstruction. No colonic wall thickening or inflammation. Fecalization of the distal ileum suggesting slow transit. No colonic wall thickening or inflammatory change. Scattered diverticulosis without diverticulitis. Normal appendix. No free air or free fluid. ABDOMINAL WALL: No significant hernia is appreciated. LYMPH NODES: Normal. VASCULAR: Normal caliber aorta with moderate atherosclerotic calcifications. PELVIC VISCERA: Uterus not seen. No adnexal mass. OSSEOUS STRUCTURES: No acute or suspicious osseous abnormality. Mild degenerative change throughout the spine. CT/CT abdomen pelvis wo IV con IMPRESSION: 1. No acute findings in the abdomen or pelvis. No hydronephrosis or nephrolithiasis. 2. Cholelithiasis. Fleischner guidelines were followed.
[2022-05-03 23:41] VITALS: BP 138/82; BP 183/79; PULSE 80; PULSE 82; RESP 18; TEMP 36.6; O2SAT 98; BMI 39.6
--- NOTE | 2022-05-03 23:50 | ECG_ITS ---
Test Reason : cp Blood Pressure : / mmHG Vent. Rate : 075 BPM Atrial Rate : 075 BPM P-R Int : 300 ms QRS Dur : 088 ms QT Int : 414 ms P-R-T Axes : 044 -18 031 degrees QTc Int : 462 ms Sinus rhythm with 1st degree A-V block Minimal voltage criteria for LVH, may be normal variant ( R in aVL ) Borderline ECG No previous ECGs available Referred By: Phuong Crews Electronically Signed By:MARITA QUINTERO MD
--- NOTE | 2022-05-03 23:59 | ED_ITS ---
HPI - Back Pain/Injury General Chief Complaint: Back Pain/Injury Stated Complaint: Lower Back Pain Time Seen by Provider: 05/03/22 23:38 Source: patient Mode of arrival: EMS Limitations: no limitations History of Present Illness HPI Narrative: 81 yo female with hx of HLD, HTN, bradycardia s/p PPM, LE edema, just had lumpectomy R breast 2 weeks ago at [facility] since then has had lower back pain after the procedure (not on AC therapy). No b/b incontinence no saddle anesthesia. States she cannot get around at home well. She also notes her legs are more swollen than usual. She took advil with little relief. She doesn't remember trauma to her back. MD elicited complaint: back pain Pertinent past history: other (recent surgery 2 weeks ago states since then low back pain) Onset (ago): week(s) (2) Timing: constant Severity: moderate Similar Symptoms Previously: No Quality: dull and aching Location: lumbar spine Radiation: none Exacerbating factors: movement and walking Relieving factors: immobilization Context: unknown Associated symptoms: other (leg swelling, felt her back was cold one night) Treatments prior to arrival: NSAIDS Work related injury: No Related Data Home Medications Medication Instructions Recorded Confirmed irbesartan 300 mg tablet 150 mg PO BID 07/23/20 11/11/21 alprazolam 0.5 mg tablet 0.5 - 1 tab PO BID PRN Anxiety 11/16/20 11/11/21 aspirin 81 mg tablet,delayed 81 mg PO DAILY 11/16/20 11/11/21 release calcium carbonate 600 mg calcium 1,200 mg PO DAILY 11/16/20 11/11/21 (1,500 mg) tablet (Calcium) cholecalciferol (vitamin D3) 25 25 mcg PO DAILY 11/16/20 11/11/21 mcg (1,000 unit) capsule (Vitamin D3) magnesium oxide 400 mg PO DAILY 11/16/20 11/11/21 Previous Rx's Medication Instructions Recorded spironolactone 25 mg tablet 12.5 mg PO DAILY 90 days #45 tabs 10/09/21 (Aldactone) Allergies Allergy/AdvReac Type Severity Reaction Status Date / Time hydrochlorothiazide Allergy Severe Unknown Verified 11/11/21 12:40 Penicillins [PENICILLINS] Allergy Severe DIFFICULTY Verified 11/11/21 12:40 BREATHING sertraline [Zoloft] Allergy Severe unk Verified 11/11/21 12:40 clindamycin [CLINDAMYCIN] Allergy Unknown RASH Verified 11/11/21 12:40 clonazepam [CLONAZEPAM] Allergy Unknown DIZZINESS, Verified 11/11/21 12:40 dizzy nausea lisinopril Allergy Unknown didn't Verified 11/11/21 12:40 feel well on med losartan Allergy Unknown didn't Verified 11/11/21 12:40 feel well on med metoprolol Allergy Unknown didn't Verified 11/11/21 12:40 feel well on med paroxetine [From PAXIL] Allergy Unknown UNKNOWN Verified 11/11/21 12:40 propranolol Allergy Unknown sick Verified 11/11/21 12:40 risedronate sodium Allergy Unknown UNKNOWN Verified 11/11/21 12:40 [From ACTONEL] valsartan Allergy Unknown didn't Verified 11/11/21 12:40 feel well on med benzalkonium chloride AdvReac Unknown CONFUSION Verified 11/11/21 12:40 [From TRAVATAN] escitalopram [From LEXAPRO] AdvReac Unknown AGITATION Verified 11/11/21 12:40 red yeast rice AdvReac Unknown STOMACH Verified 11/11/21 12:40 [RED YEAST RICE] UPSET timolol [From ISTALOL] AdvReac Unknown CONFUSION Verified 11/11/21 12:40 travoprost [From TRAVATAN] AdvReac Unknown CONFUSION Verified 11/11/21 12:40 CHOLESTEROL MEDS Allergy Unknown LIVER Uncoded 11/11/21 12:40 PROBLEMS Clindamycin HCl Allergy Unknown can only Uncoded 11/11/21 12:40 take 150MG Diltiazem HCl ER Allergy Unknown didn't Uncoded 11/11/21 12:40 feel well on med Review of Systems Review of Systems: Constitutional : No Weight loss, No Fever, No Chills, ENT/Mouth : No Hearing loss, No Ear Pain, No Nasal Congestion, No Sinus Pain, No Hoarseness, No sore throat, No Rhinorrhea, No Swallowing Difficulty Cardiovascular : No Chest Pain, No SOB, pos lower extremity edema Respiratory : No Cough, No Dyspnea Gastrointestinal : No Nausea, No Vomiting, No Diarrhea, No abdominal Pain, No Hematochezia, No Melena Genitourinary : No Dysuria, No Urinary Frequency, No Hematuria, No Urinary Incontinence, Musculoskeletal : positive back pain Skin : No Skin Lesions, No rash Neuro : No Weakness, No Numbness, No Paresthesias, no loss of bowel or bladder incontinence, no saddle anesthesia All other systems reviewed and are negative FORMERLY [facility], [facility] Past Medical History Medical History (Updated 05/04/22 @ 00:31 by Phuong Crews DO) Anxiety Arthritis Bradycardia COVID-19 vaccine series completed H/O shortness of breath Hepatitis HLD (hyperlipidemia) HTN (hypertension) Hx of cancer of uterus Junctional bradycardia PAC (premature atrial contraction) Pacemaker (~11/2020) PVC (premature ventricular contraction) Rheumatic aortic regurgitation Sinus pause Statin intolerance Surgical History (Updated 05/04/22 @ 00:00 by Phuong Crews DO) H/O lumpectomy History of cataract extraction History of colonoscopy History of hysterectomy History of pacemaker (~11/23/20) History of tonsillectomy Family History Family History Father HTN (hypertension) Mother No problems noted. Social History Social History Household Members: Spouse Housing: House Housing Other:: Resides at [facility] Are you a primary primary care pediatrician to a significant other at home: No Do you presently have visiting nurse or other home services: No Patient Tobacco Use Status: Never used Tobacco Years Smoked: > 45 yrs ago service: No Current occupational status: retired Physical Exam Vital Signs: Vital Signs: Last Vital Signs Temp 98.1 F 05/04/22 00:00 Pulse 76 05/04/22 00:00 Resp 18 05/03/22 23:41 BP 158/61 H 05/04/22 00:00 Pulse Ox 95 05/04/22 00:00 O2 Del Method 05/04/22 00:00 BMI result Body Mass Index 39.6 Appearance: Alert. Oriented X3. No acute distress. Eyes: Pupils equal, round and reactive to light. ENT: Pharynx normal. Neck: Normal inspection. Neck supple. CVS: Normal heart rate and rhythm. Pulses normal. Respiratory: No respiratory distress. Breath sounds normal. Abdomen: Soft and nontender. Back: ttp along bilateral lower paraspinal lumbar muscles Skin: Skin warm and dry. Normal skin color. Normal skin turgor. Extremities: bilateral 1+ lower extremity edema. No calf ttp Neuro: Oriented X 3. No motor deficit. No sensory deficit. SILT intact inner thighs, L5 5/5 bilaterally Course Course Course Narrative: signed out to Dr. Plaza pending workup MDM - Back Pain/Injury MDM Narrative Medical decision making narrative: 81 yo female with hx of HLD, HTN, bradycardia s/p PPM, LE edema, just had lumpectomy R breast 2 weeks ago here with c/o low back pain no b/b incontinence, blood thinners, saddle anesthesia or abdominal pain - will obtain UA, CT scan for renal colic/compression fracture. also c/o LE edema which isn't very pitting will obtain DVT study, BNP, EKG and CXR. Dispo per results and findings. Lab Data Result diagrams: 05/04/22 00:26 05/04/22 00:26 ECG Data Attestation: I personally reviewed and interpreted this ECG as follows: ECG interpretation date: 05/04/22 ECG interpretation time: 00:12 Interpretation: Rate: 75 Rhythm: NSR with 1st degree AVB [place]: left, LVH Normal P waves. Normal SAHRA. Normal QRS complex. ST T wave : normal no MYLES qTC: normal prior studies: no acute ischemia The study has been interpreted contemporaneously by me. . Discharge Plan Discharge Clinical Impression: Low back pain Qualifiers: Chronicity: acute Back pain laterality: bilateral Sciatica presence: without sciatica Qualified Code(s): M54.50 - Low back pain, unspecified Patient Disposition: Still a Patient Prescriptions: No Action spironolactone [Aldactone] 25 mg tablet 12.5 mg PO DAILY 90 Days Qty: 45 2RF aspirin 81 mg Tablet,Delayed Release (Dr/Ec) 81 mg PO DAILY alprazolam 0.5 mg tablet 0.5 - 1 tab PO BID PRN (Reason: Anxiety) cholecalciferol (vitamin D3) [Vitamin D3] 25 mcg (1,000 unit) Capsule 25 mcg PO DAILY magnesium oxide 400 mg magnesium Capsule 400 mg PO DAILY calcium carbonate [Calcium 600] 600 mg calcium (1,500 mg) Tablet 1,200 mg PO DAILY irbesartan 300 mg tablet 150 mg PO BID Rx Instructions: 150mg a.m 150mgp.m
[2022-05-04] VITALS: BP 158/61; PULSE 76; TEMP 36.7; O2SAT 95
[2022-05-04] MEDS: Acetaminophen 325 MG TABLET 650 MG PO (00:07)
[2022-05-04] MEDS: Ondansetron ODT 4 MG TAB.RAPDIS TRANSLINGU (00:08)
[2022-05-04] MEDS: oxyCODONE HCl Immed Release 5 MG TABLET PO (00:08)
[2022-05-04 00:49] LABS: MANUAL DIFF FLAG NO
[2022-05-04 01:00] LABS: Basophils Absolute Auto 0.1 X10*3/uL (0.0-0.2); Eosinophils Absolute Auto 0.1 X10*3/uL (0.0-0.4); Eosinophils Percent Auto 2.7 % (0-4); Hematocrit 43.1 % (37.0-47.0); Hemoglobin 13.9 g/dl (12.0-16.0); Imm Gran Abs Auto 0.01 X10*3/uL (0.00-0.03); Imm Gran Pct Auto 0.2 % (0.0-0.4); Lymphocytes Absolute Auto 1.7 X10*3/uL (1.2-4.9); Lymphocytes Percent Auto 32.6 % (20-40); Mean Corpuscular HGB Conc 32.3 g/dl (31.0-35.0); Mean Corpuscular Hemoglobin 28.9 pg (27.0-33.0); Mean Corpuscular Volume 89.6 fL (80.0-98.0); Mean Platelet Volume 10.5 fL (9.4-12.3); Monocytes Absolute Auto 0.6 X10*3/uL (0.1-1.2); Monocytes Percent Auto 12.5 % (2-11); Neutrophils Absolute Auto 2.6 x10*3/uL (2.0-8.3); Platelet Count 224 X10*3/uL (160-400); Red Blood Count 4.81 X10*6/uL (4.20-5.50); Red Cell Distribution Width 13.2 % (11.0-16.0); White Blood Count 5.1 X10*3/uL (4.8-10.8)
[2022-05-04 01:05] LABS: Prothrombin Time 10.9 SEC (10.0-13.1)
[2022-05-04 01:08] LABS: Alanine Aminotransferase 11 U/L (0-31); Albumin Level 4.2 g/dL (3.5-5.0); Alkaline Phosphatase 69 U/L (39-117); Anion Gap 16 (12-20); Aspartate Amino Transferase 20 U/L (5-31); Bilirubin Direct 0.2 mg/dL (0.0-0.5); Bilirubin Total 0.6 mg/dL (0.0-1.0); Blood Urea Nitrogen 24 mg/dL (9-16); Calcium 9.8 mg/dL (8.4-10.2); Carbon Dioxide 28 mmol/L (22-29); Chloride 100 mmol/L (96-108); Creatinine Clr Calc Pharmacy 41.6; Estimated Glomerular Filt Rate 48; Glucose Random 103 mg/dL (60-115); Magnesium 2.3 mg/dL (1.6-2.6); Potassium 4.7 mmol/L (3.3-5.1); Sodium 139 mmol/L (135-145); Total Protein 6.7 g/dL (6.5-8.0)
[2022-05-04 01:08] LABS: COVID-19 Test Negative (Negative)
[2022-05-04 01:10] LABS: B Type Natriuretic Peptide 79 pg/mL (<100); Troponin-I High Sensitivity 4.5 ng/L (<3.5-17.0)
[2022-05-04 01:27] LABS: TSH reflex Free T4 3.52 uIU/mL (0.32-4.0)
[2022-05-04 01:51] LABS: Appearance Urine Clear; Color Urine Yellow; Glucose Urine UA Negative (Negative); Leukocyte Esterase Urine Negative (Negative); Nitrite Urine Negative (Negative); Specific Gravity - Urine <= 1.005 (1.005-1.025); Urine Blood Negative (Negative); Urine Ketones Negative (Negative); Urine Protein Negative (Neg-Trace)
[2022-05-04] MEDS: Lidocaine 4 % Patch ADH..PATCH 1 PATCH TRANSDERMA (01:54)
[2022-05-04 05:38] VITALS: BP 158/61; PULSE 70; RESP 18; O2SAT 95
== END 2022-05-04 06:24 | disposition home or self-care (01) ==
PROVIDERS: Emergency Medicine; Emergency Provider Emergency Medicine Emergency Medical Services; PCP Family Medicine
DX: M54.50 Low back pain, unspecified (principal); R60.0 Localized edema; I10 Essential (primary) hypertension; E78.5 Hyperlipidemia, unspecified; Z79.82 Long term (current) use of aspirin; Z79.899 Other long term (current) drug therapy; Z95.0 Presence of cardiac pacemaker
CPT/HCPCS: 36415; 71045; 74176; 80048; 80076; 81003; 82550; 83735; 83880; 84443; 84484; 85025; 85610; 87635; 93005; 93970; 99284; 99285

== ENCOUNTER → 2022-05-19 12:53 | Outpatient (BNVA) | payer MEDICARE, SELFPAY | PROVIDERS: PCP Family Medicine; Referring Provider Family Medicine; Visit Provider Internal Medicine | DX: Z45.018 Encounter for adjustment and management of other part of cardiac pacemaker (principal); R00.1 Bradycardia, unspecified; I49.3 Ventricular premature depolarization; I49.1 Atrial premature depolarization; I10 Essential (primary) hypertension; E78.5 Hyperlipidemia, unspecified | CPT/HCPCS: 93005; 93280; 99212 ==

== ENCOUNTER → 2023-02-05 23:59 | Outpatient (BNV) | payer MEDICARE, SELFPAY ==
--- NOTE | 2023-02-07 14:11 | A.OFFVIS_ITS ---
Intake Intake Visit Reasons: Remote Device Check- Medtr[employer] Allergies hydrochlorothiazide Allergy (Severe, Verified 05/19/22 13:14) Unknown Penicillins [PENICILLINS] Allergy (Severe, Verified 05/19/22 13:14) DIFFICULTY BREATHING sertraline [Zoloft] Allergy (Severe, Verified 05/19/22 13:14) unk clindamycin [CLINDAMYCIN] Allergy (Unknown, Verified 05/19/22 13:14) RASH clonazepam [CLONAZEPAM] Allergy (Unknown, Verified 05/19/22 13:14) DIZZINESS, dizzy nausea lisinopril Allergy (Unknown, Verified 05/19/22 13:14) didn't feel well on med losartan Allergy (Unknown, Verified 05/19/22 13:14) didn't feel well on med metoprolol Allergy (Unknown, Verified 05/19/22 13:14) didn't feel well on med paroxetine [From PAXIL] Allergy (Unknown, Verified 05/19/22 13:14) UNKNOWN propranolol Allergy (Unknown, Verified 05/19/22 13:14) sick risedronate sodium [From ACTONEL] Allergy (Unknown, Verified 05/19/22 13:14) UNKNOWN valsartan Allergy (Unknown, Verified 05/19/22 13:14) didn't feel well on med benzalkonium chloride [From TRAVATAN] Adverse Reaction (Unknown, Verified 05/19/22 13:14) CONFUSION escitalopram [From LEXAPRO] Adverse Reaction (Unknown, Verified 05/19/22 13:14) AGITATION red yeast rice [RED YEAST RICE] Adverse Reaction (Unknown, Verified 05/19/22 13:14) STOMACH UPSET timolol [From ISTALOL] Adverse Reaction (Unknown, Verified 05/19/22 13:14) CONFUSION travoprost [From TRAVATAN] Adverse Reaction (Unknown, Verified 05/19/22 13:14) CONFUSION CHOLESTEROL MEDS Allergy (Unknown, Uncoded 05/19/22 13:14) LIVER PROBLEMS Clindamycin HCl Allergy (Unknown, Uncoded 05/19/22 13:14) can only take 150MG Diltiazem HCl ER Allergy (Unknown, Uncoded 05/19/22 13:14) didn't feel well on med [facility] Medical History (Updated 05/05/22 @ 00:01 by Background Daemon) Anxiety Arthritis Bradycardia COVID-19 vaccine series completed H/O shortness of breath Hepatitis HLD (hyperlipidemia) HTN (hypertension) Hx of cancer of uterus Junctional bradycardia PAC (premature atrial contraction) Pacemaker (~11/2020) PVC (premature ventricular contraction) Rheumatic aortic regurgitation Sinus pause Statin intolerance Surgical History H/O lumpectomy History of cataract extraction History of colonoscopy History of hysterectomy History of pacemaker (~11/23/20) History of tonsillectomy Family History Father HTN (hypertension) Mother No problems noted. 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 Overall normal device function. [id number] Cardiac Device Interrogation, pacemaker Procedure code (CPT) selection complete Assessment & Plan Assessment & Plan (1) Sinus pause: Code(s): I45.5 - Other specified heart block (2) Junctional bradycardia: Code(s): R00.1 - Bradycardia, unspecified Coding Level of Care Code Procedure Only Diagnoses Sinus pause I45.5 Junctional bradycardia R00.1 CPT Codes Cardiac Device Check - Cardiac Device 12: [id number] Cardiac Device Interrogation, pacemaker ([id number])
== END ==
PROVIDERS: PCP Family Medicine; Visit Provider Internal Medicine
DX: I45.5 Other specified heart block (principal); R00.1 Bradycardia, unspecified
CPT/HCPCS: 93294

== ENCOUNTER → 2023-05-06 23:59 | Outpatient (BNV) | payer MEDICARE, SELFPAY ==
--- NOTE | 2023-05-07 12:35 | MHC.OFFVIS ---
Intake Intake Visit Reasons: Remote Device Check- Medtronic Allergies hydrochlorothiazide Allergy (Severe, Verified 05/19/22 13:14) Unknown Penicillins [PENICILLINS] Allergy (Severe, Verified 05/19/22 13:14) DIFFICULTY BREATHING sertraline [Zoloft] Allergy (Severe, Verified 05/19/22 13:14) unk clindamycin [CLINDAMYCIN] Allergy (Unknown, Verified 05/19/22 13:14) RASH clonazepam [CLONAZEPAM] Allergy (Unknown, Verified 05/19/22 13:14) DIZZINESS, dizzy nausea lisinopril Allergy (Unknown, Verified 05/19/22 13:14) didn't feel well on med losartan Allergy (Unknown, Verified 05/19/22 13:14) didn't feel well on med metoprolol Allergy (Unknown, Verified 05/19/22 13:14) didn't feel well on med paroxetine [From PAXIL] Allergy (Unknown, Verified 05/19/22 13:14) UNKNOWN propranolol Allergy (Unknown, Verified 05/19/22 13:14) sick risedronate sodium [From ACTONEL] Allergy (Unknown, Verified 05/19/22 13:14) UNKNOWN valsartan Allergy (Unknown, Verified 05/19/22 13:14) didn't feel well on med benzalkonium chloride [From TRAVATAN] Adverse Reaction (Unknown, Verified 05/19/22 13:14) CONFUSION escitalopram [From LEXAPRO] Adverse Reaction (Unknown, Verified 05/19/22 13:14) AGITATION red yeast rice [RED YEAST RICE] Adverse Reaction (Unknown, Verified 05/19/22 13:14) STOMACH UPSET timolol [From ISTALOL] Adverse Reaction (Unknown, Verified 05/19/22 13:14) CONFUSION travoprost [From TRAVATAN] Adverse Reaction (Unknown, Verified 05/19/22 13:14) CONFUSION CHOLESTEROL MEDS Allergy (Unknown, Uncoded 05/19/22 13:14) LIVER PROBLEMS Clindamycin HCl Allergy (Unknown, Uncoded 05/19/22 13:14) can only take 150MG Diltiazem HCl ER Allergy (Unknown, Uncoded 05/19/22 13:14) didn't feel well on med [facility] Medical History (Updated 05/05/22 @ 00:01 by Background Damic) Pacemaker (~11/2020) COVID-19 vaccine series completed Anxiety Arthritis Hx of cancer of uterus Hepatitis H/O shortness of breath PAC (premature atrial contraction) Sinus pause Junctional bradycardia Statin intolerance HLD (hyperlipidemia) Bradycardia Rheumatic aortic regurgitation HTN (hypertension) PVC (premature ventricular contraction) Surgical History H/O lumpectomy History of cataract extraction History of colonoscopy History of hysterectomy History of pacemaker (~11/23/20) History of tonsillectomy Family History Father HTN (hypertension) Mother No problems noted. 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 Overall normal device function. [id number] Cardiac Device Interrogation, pacemaker Procedure code (CPT) selection complete Assessment & Plan Assessment & Plan (1) Sinus pause: Code(s): I45.5 - Other specified heart block (2) Junctional bradycardia: Code(s): R00.1 - Bradycardia, unspecified Coding Level of Care Code Procedure Only Diagnoses Sinus pause I45.5 Junctional bradycardia R00.1 CPT Codes Cardiac Device Check - Cardiac Device 12: [id number] Cardiac Device Interrogation, pacemaker ([id number])
== END ==
PROVIDERS: PCP Family Medicine; Visit Provider Internal Medicine
DX: I45.5 Other specified heart block (principal); Z95.0 Presence of cardiac pacemaker
CPT/HCPCS: 93294

== ENCOUNTER 2023-05-18 12:47 | Outpatient (AMB) | payer MEDICARE, SELFPAY ==
[2023-05-18 13:19] VITALS: BP 164/66; PULSE 60; BMI 40.1
--- NOTE | 2023-05-18 13:19 | A.OFFVIS_ITS ---
Intake Vital Signs 05/18/23 13:19 Height 5 ft 1 in Weight 212 lb 1.355 oz BMI 40.1 BP 164/66 H Blood Pressure Location Lt brachial Position Sitting Pulse 60 Intake Visit Reasons: 1 year fu w/ Medtronic check Intake Note: 1 year follow up Follow Up Clerk Required: No Accompanied by: Family/Other Allergies hydrochlorothiazide Allergy (Severe, Verified 05/18/23 13:20) Unknown Penicillins [PENICILLINS] Allergy (Severe, Verified 05/18/23 13:20) DIFFICULTY BREATHING sertraline [Zoloft] Allergy (Severe, Verified 05/18/23 13:20) unk clindamycin [CLINDAMYCIN] Allergy (Unknown, Verified 05/18/23 13:20) RASH clonazepam [CLONAZEPAM] Allergy (Unknown, Verified 05/18/23:20) DIZZINESS, dizzy nausea lisinopril Allergy (Unknown, Verified 05/18/23 13:20) didn't feel well on med losartan Allergy (Unknown, Verified 05/18/23 13:20) didn't feel well on med metoprolol Allergy (Unknown, Verified 05/18/23 13:20) didn't feel well on med paroxetine [From PAXIL] Allergy (Unknown, Verified 05/18/23 13:20) UNKNOWN propranolol Allergy (Unknown, Verified 05/18/23 13:20) sick risedronate sodium [From ACTONEL] Allergy (Unknown, Verified 05/18/23 13:20) UNKNOWN valsartan Allergy (Unknown, Verified 05/18/23 13:20) didn't feel well on med benzalkonium chloride [From TRAVATAN] Adverse Reaction (Unknown, Verified 05/18/23 13:20) CONFUSION escitalopram [From LEXAPRO] Adverse Reaction (Unknown, Verified 05/18/23 13:20) AGITATION red yeast rice [RED YEAST RICE] Adverse Reaction (Unknown, Verified 05/18/23 13:20) STOMACH UPSET timolol [From ISTALOL] Adverse Reaction (Unknown, Verified 05/18/23 13:20) CONFUSION travoprost [From TRAVATAN] Adverse Reaction (Unknown, Verified 05/18/23 13:20) CONFUSION CHOLESTEROL MEDS Allergy (Unknown, Uncoded 05/18/23 13:20) LIVER PROBLEMS Clindamycin HCl Allergy (Unknown, Uncoded 05/18/23 13:20) can only take 150MG Diltiazem HCl ER Allergy (Unknown, Uncoded 05/18/23 13:20) didn't feel well on med Medication List - Last Reconciled 05/18/23 by Matty Sawyer MD alprazolam 0.5 - 1 tabs PO BID PRN aspirin 81 mg PO DAILY calcium carbonate (Calcium) 1,200 mg PO DAILY cholecalciferol (vitamin D3) (Vitamin D3) 25 mcg PO DAILY irbesartan 150 mg PO BID lidocaine HCl 4% 1 patch topical DAILY PRN spironolactone (Aldactone) 12.5 mg (1/2 x 25 mg) PO DAILY 90 days verapamil ER 120 mg PO QAM HPI HPI Comments History of Present Illness Details Xuan returns for follow-up regarding pacemaker as well as other cardiac issues. To recall, she was on verapamil for PVCs but was going into deisy-arrhythmias including junctional rhythm. Subsequently, she received a permanent pacemaker. Since last seen, she states she is doing fine. No specific complaints like angina or shortness of breath or palpitations or in fact anything cardiac sounding. Blood pressures run high in the clinic but she states she is extremely anxious and at home it is much lower. [facility] Medical History (Updated 05/05/22 @ 00:01 by Luis Zamudio) Pacemaker (~11/2020) COVID-19 vaccine series completed Anxiety Arthritis Hx of cancer of uterus Hepatitis H/O shortness of breath PAC (premature atrial contraction) Sinus pause Junctional bradycardia Statin intolerance HLD (hyperlipidemia) Bradycardia Rheumatic aortic regurgitation HTN (hypertension) PVC (premature ventricular contraction) Surgical History H/O lumpectomy History of tonsillectomy History of hysterectomy History of colonoscopy History of pacemaker (~11/23/20) History of cataract extraction Family History Father HTN (hypertension) Mother No problems noted. Social History Household Members: Spouse Housing: House Housing Other:: Resides at [facility] Are you a primary director career services to a significant other at home: No Do you presently have visiting nurse or other home services: No Patient Tobacco Use Status: Never used Tobacco Years Smoked: > 45 yrs ago service: No Current occupational status: retired Review of Systems Const All systems reviewed & are unremarkable except as noted in HPI and below Reports as per HPI and Reports no additional complaints Eyes Reports as per HPI and Denies no additional complaints ENT Denies no additional complaints and Reports as per HPI Card Reports as per HPI, Reports no additional complaints, Denies acrocyanosis, Denies chest pain, Denies leg edema, Denies lightheadedness, Denies palpitations and Denies dyspnea Resp Reports as per HPI, Denies no additional complaints and Denies dyspnea GI Reports as per HPI and Denies no additional complaints Reports as per HPI Musc Reports no additional complaints and Reports as per HPI Skin/Breast Reports system reviewed and no additional complaints, except as documented Neuro Reports no additional complaints and Reports as per HPI Psych Reports no additional complaints and Reports as per HPI Endo Reports no additional complaints, Reports as per HPI and Denies palpitations Gorge/Lymph Reports no additional complaints and Reports as per HPI Aller/Immun Reports no additional complaints and Reports as per HPI Physical Exam Vital Signs: Last Vital Signs Pulse 60 05/18/23 13:19 BP 164/66 H 05/18/23 13:19 BMI result Body Mass Index 40.1 Const General: comfortable and no acute distress Orientation/consciousness: patient oriented x3 HEENT Other: Unremarkable Head: Yes normal to inspection Neck Neck: Yes normal visual inspection Chest Chest palpation & inspection: normal inspection of the chest Resp Auscultation: clear to auscultation bilaterally Cardio Palpation: normal PMI Heart sounds: S1 normal heart sound present, S2 normal heart sound present, no gallops, Murmur heart sound present systolic II/ and at the right sternal border and no rubs GI Palpation (GI): Soft to palpation Back/Spine/Pelvis Other: unremarkable Skin General skin exam: no rashes or lesions noted Neuro General: patient oriented x3 Extrem General: Yes normal to inspection Psych Mental Status: mental status grossly normal Office Procedures Cardiac Device Check Cardiac Device Check Details: Pacemaker interrogated today. Dual-chamber device, programmed AAI-DDD mode. Battery status more than 10 years. Chronically high ventricular thresholds but otherwise normal lead parameters. Atrial pacing 65%. Ventricular pacing 4%. Overall, normal device function. [id number] Cardiac Device Check, pacemaker dual lead Procedure code (CPT) selection complete EKG Details: EKG with sinus rhythm at 60/Min; minimal voltage criteria for LVH; no significant ST-T changes and otherwise unremarkable. [place]. [id number], Complete Assessment & Plan Assessment & Plan (1) Junctional bradycardia: Code(s): R00.1 - Bradycardia, unspecified Plan: s/p permanent pacemaker implantation. (2) PVC (premature ventricular contraction): Code(s): I49.3 - Ventricular premature depolarization Plan: History of frequent PVCs. No concerning symptoms in that regard. (3) PAC (premature atrial contraction): Code(s): I49.1 - Atrial premature depolarization Plan: Frequent premature atrial contractions seen in the last Holter. No specific symptoms from this but there is increased possibility of atrial fibrillation. (4) Other and unspecified hyperlipidemia: Code(s): E78.5 - Hyperlipidemia, unspecified Plan: Very high lipids. However, statin intolerant. She also tried Praluent but had numerous side effects but not sure if it is truly from the medication. Not willing to try anything. (5) Essential hypertension: Code(s): I10 - Essential (primary) hypertension Plan: On meds including irbesartan, spironolactone, verapamil. She has numerous allergies and this is only medication she can tolerate. Pressures run on the higher side in clinic but she states she is extremely anxious when she comes here. At home, it was apparently the 120s, 130s and some 140s. After long discussion, we decided to leave it as is. If any high readings at home, she will contact us. Plan Total time spent including review of data, counseling, documentation, coordination of care-34 minutes. This excludes pacemaker interrogation and reporting. Coding Level of Care Code Est Pt Level 4 (88726) Diagnoses Junctional bradycardia R00.1 PVC (premature ventricular contraction) I49.3 PAC (premature atrial contraction) I49.1 Other and unspecified hyperlipidemia E78.5 Essential hypertension I10 CPT Codes Cardiac Device Check - Cardiac Device 2: [id number] Cardiac Device Check, pacemaker dual lead ([id number]) EKG - CPT: 66765-[id number], Complete ([id number])
== END 2023-05-18 13:44 | disposition home or self-care (01) ==
PROVIDERS: Visit Provider Internal Medicine
DX: I49.3 Ventricular premature depolarization (principal); I49.1 Atrial premature depolarization; E78.5 Hyperlipidemia, unspecified; I10 Essential (primary) hypertension
CPT/HCPCS: 93010; 93280; 99214

== ENCOUNTER → 2023-05-18 12:47 | Outpatient (BNVA) | payer MEDICARE, SELFPAY | PROVIDERS: Visit Provider Internal Medicine | DX: Z45.018 Encounter for adjustment and management of other part of cardiac pacemaker (principal); I49.3 Ventricular premature depolarization; I10 Essential (primary) hypertension; I49.1 Atrial premature depolarization; R00.1 Bradycardia, unspecified; E78.5 Hyperlipidemia, unspecified | CPT/HCPCS: 93005; 93280; 99212 ==

== ENCOUNTER → 2023-08-04 23:59 | Outpatient (BNV) | payer MEDICARE, SELFPAY ==
--- NOTE | 2023-08-06 09:26 | MHC.OFFVIS ---
Intake Intake Visit Reasons: Remote Device Check- [employer] Allergies hydrochlorothiazide Allergy (Severe, Verified 05/18/23 13:20) Unknown Penicillins [PENICILLINS] Allergy (Severe, Verified 05/18/23 13:20) DIFFICULTY BREATHING sertraline [Zoloft] Allergy (Severe, Verified 05/18/23 13:20) unk clindamycin [CLINDAMYCIN] Allergy (Unknown, Verified 05/18/23 13:20) RASH clonazepam [CLONAZEPAM] Allergy (Unknown, Verified 05/18/23 13:20) DIZZINESS, dizzy nausea lisinopril Allergy (Unknown, Verified 05/18/23 13:20) didn't feel well on med losartan Allergy (Unknown, Verified 05/18/23:20) didn't feel well on med metoprolol Allergy (Unknown, Verified 05/18/23:20) didn't feel well on med paroxetine [From PAXIL] Allergy (Unknown, Verified 05/18/23 13:20) UNKNOWN propranolol Allergy (Unknown, Verified 05/18/23:20) sick risedronate sodium [From ACTONEL] Allergy (Unknown, Verified 05/18/23 13:20) UNKNOWN valsartan Allergy (Unknown, Verified 05/18/23 13:20) didn't feel well on med benzalkonium chloride [From TRAVATAN] Adverse Reaction (Unknown, Verified 05/18/23 13:20) CONFUSION escitalopram [From LEXAPRO] Adverse Reaction (Unknown, Verified 05/18/23 13:20) AGITATION red yeast rice [RED YEAST RICE] Adverse Reaction (Unknown, Verified 05/18/23 13:20) STOMACH UPSET timolol [From ISTALOL] Adverse Reaction (Unknown, Verified 05/18/23 13:20) CONFUSION travoprost [From TRAVATAN] Adverse Reaction (Unknown, Verified 05/18/23 13:20) CONFUSION CHOLESTEROL MEDS Allergy (Unknown, Uncoded 05/18/23 13:20) LIVER PROBLEMS Clindamycin HCl Allergy (Unknown, Uncoded 05/18/23 13:20) can only take 150MG Diltiazem HCl ER Allergy (Unknown, Uncoded 05/18/23 13:20) didn't feel well on med [facility] Medical History (Updated 05/05/22 @ 00:01 by Background Damic) Pacemaker (~11/2020) COVID-19 vaccine series completed Anxiety Arthritis Hx of cancer of uterus Hepatitis H/O shortness of breath PAC (premature atrial contraction) Sinus pause Junctional bradycardia Statin intolerance HLD (hyperlipidemia) Bradycardia Rheumatic aortic regurgitation HTN (hypertension) PVC (premature ventricular contraction) Surgical History H/O lumpectomy History of tonsillectomy History of hysterectomy History of colonoscopy History of pacemaker (~11/23/20) History of cataract extraction Family History Father HTN (hypertension) Mother No problems noted. 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 Overall normal device function. [id number] Cardiac Device Interrogation, pacemaker Procedure code (CPT) selection complete Assessment & Plan Assessment & Plan (1) Junctional bradycardia: Code(s): R00.1 - Bradycardia, unspecified Plan x Coding Level of Care Code Procedure Only Diagnoses Junctional bradycardia R00.1 CPT Codes Cardiac Device Check - Cardiac Device 12: [id number] Cardiac Device Interrogation, pacemaker ([id number])
== END ==
PROVIDERS: PCP Family Medicine; Visit Provider Internal Medicine
DX: R00.1 Bradycardia, unspecified (principal); Z95.0 Presence of cardiac pacemaker
CPT/HCPCS: 93294

== ENCOUNTER 2023-10-05 04:02 | Emergency (ER) | payer MEDICARE, SELFPAY ==
--- NOTE | ~2023-10-05 | CT_ITS ---
EXAMINATION: NONCONTRAST HEAD CT NONCONTRAST CERVICAL SPINE CT INDICATION INFORMATION: Trauma COMPARISON: None TECHNIQUE: Separate noncontrast CT examinations of the head and cervical spine were performed. Coronal head CT images and coronal and sagittal cervical spine images were created at the technologist workstation. DLP: 1671 mGy-cm DOSE LOWERING TECHNIQUES: This CT examination was performed using dose optimization techniques as appropriate, variously including the following: - Automated exposure control - Adjustment of mA and/or kV according to patient size (this includes techniques or standardized protocols for targeted exams were dose is matched to indication/reason for exam; i.e. extremities or head) - Use of iterative reconstruction technique FINDINGS: Head: There is no evidence of acute intracranial hemorrhage or territorial infarction. No abnormal mass-effect or midline shift is seen. Acevedo to white matter differentiation is well preserved. No extra-axial fluid collections are identified. The ventricles are normal in size. Mild volume loss is noted. The osseous structures and soft tissues are normal. The mastoid air cells and visualized portions of the paranasal sinuses are well-aerated. Cervical spine: There is anatomic alignment of the vertebral bodies and posterior elements. Vertebral body heights are maintained. Disc space narrowing and endplate osteophyte formation in the lower cervical spine. Multilevel moderate bilateral facet arthropathy. No evidence of acute fracture. No prevertebral soft tissue swelling. Visualized portions of the lung apices are unremarkable. Right thyroid nodule measures up to 0.9 cm. Based on the recommendations of the ACR Incidental Thyroid Findings Committee (JACR 2014; 12(2):143-50), no imaging followup is recommended for incidental thyroid nodules with largest axial dimension less than 1.5 cm in patients greater than 35 years of age in the absence of high risk imaging features, symptomatic thyroid disease, or increased risk for thyroid cancer. CT/CT cervical spine wo IV con IMPRESSION: 1. No acute findings identified in the head or cervical spine. 2. Degenerative changes of the cervical spine.
--- NOTE | ~2023-10-05 | CT_ITS ---
EXAMINATION: CT LUMBAR SPINE WITHOUT CONTRAST CLINICAL INFORMATION: Fall, severe low back pain COMPARISON: 05/04/2022 TECHNIQUE: Multidetector helical imaging was performed through the lumbar spine. Coronal and sagittal reformatted images were created. This CT examination was performed using dose optimization techniques as appropriate, variously including the following: *Automated exposure control *Adjustment of mA and/or kV according to patient size (this includes techniques or standardized protocols for targeted exams where dose is matched to indication/reason for exam; i.e. extremities or head) *Use of iterative reconstruction technique DLP; 1671 mGy-cm FINDINGS: There is slight loss of height in the T12 vertebral body with subtle superior and anterior vertebral body cortical irregularities concerning for minimally displaced fracture in the setting of trauma. Minimal retropulsion is noted. Partial loss of height in the inferior endplate of L2 is worsened from prior though overall more suggestive of a chronic finding. Remaining lumbar vertebral body heights are maintained. There is grade 1 retrolisthesis of L2 on L3 and grade 1 anterolisthesis of L4 on L5. There is moderate to severe disc space narrowing at L3-L4 with surrounding degenerative endplate change. Severe facet arthropathy of the lower lumbar spine. Multilevel endplate osteophytes are noted. 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 There is atherosclerotic calcification along the aorta and iliac arteries. CT/CT lumbar spine wo IV con IMPRESSION: 1. Findings suspicious for minimally displaced fracture of the T12 vertebral body with slight loss of height and minimal retropulsion. This may be more definitively assessed with MRI. 2. Partial loss of height in the inferior endplate of L2 is worsened from 05/04/2022 though overall more suggestive of a chronic finding. 3. Degenerative changes as noted above.
[2023-10-05 04:10] VITALS: BP 150/90; BP 210/73; PULSE 70; PULSE 75; RESP 18; TEMP 36.5; O2SAT 95; BMI 40.4
--- NOTE | 2023-10-05 04:10 | ECG_ITS ---
Test Reason : FALL Blood Pressure : / mmHG Vent. Rate : 073 BPM Atrial Rate : 073 BPM P-R Int : 226 ms QRS Dur : 092 ms QT Int : 426 ms P-R-T Axes : 044 -21 058 degrees QTc Int : 469 ms Sinus rhythm with 1st degree A-V block Possible Left atrial enlargement Minimal voltage criteria for LVH, may be normal variant ( R in aVL ) Septal infarct , age undetermined Abnormal ECG When compared with ECG of 04-MAY-2022 00:01, Septal infarct is now Present Referred By: Phuong Crews Electronically Signed By:SAMSON SY MD
--- NOTE | 2023-10-05 04:24 | ED_ITS ---
HPI - Fall General Chief Complaint: Fall Stated Complaint: [facility] FALL,BACK PAIN,HIT HEAD,+CCOLLAR FROM SNF Time Seen by Provider: 10/05/23 04:10 Source: patient and old records reviewed Mode of arrival: EMS Limitations: no limitations History of Present Illness HPI Narrative: 83 yo female with PMH of HLD, HTN, bradycardia, PPM, on daily aspirin coming from home who states she got up to fast to urinate tonight and lost her balance falling and hitting her low back with twisting on the way down. she did not hit her head or have LOC she got herself right back up. Not on thinners, no numbness or weakness. complaint: fall Onset (ago): minute(s) (just prior to arrival ) Fall from: standing Fall witnessed: no Place fall occurred: home Loss of consciousness: none Prolonged down time: no Symptoms prior to fall: none Context: other (lost balance ) Location of injury: back Severity: moderate Quality: aching and throbbing Associated symptoms (after fall): denies Related Data Home Medications Medication Instructions Recorded Confirmed irbesartan 300 mg tablet 150 mg PO BID 07/23/20 05/18/23 alprazolam 0.5 mg tablet 0.5 - 1 tab PO BID PRN Anxiety 11/16/20 05/18/23 aspirin 81 mg tablet,delayed 81 mg PO DAILY 11/16/20 05/18/23 release calcium carbonate 600 mg calcium 1,200 mg PO DAILY 11/16/20 05/18/23 (1,500 mg) tablet (Calcium) cholecalciferol (vitamin D3) 25 25 mcg PO DAILY 11/16/20 05/18/23 mcg (1,000 unit) capsule (Vitamin D3) Previous Rx's Medication Instructions Recorded lidocaine HCl 4 % topical patch 1 patch topical DAILY PRN pain #5 05/04/22 ea verapamil 120 mg 24 hr 120 mg PO QAM #90 caps 02/25/23 capsule,extended release spironolactone 25 mg tablet 12.5 mg (1/2 x 25 mg) PO DAILY #45 08/25/23 tabs Allergies Allergy/AdvReac Type Severity Reaction Status Date / Time hydrochlorothiazide Allergy Severe Unknown Verified 10/05/23 04:10 Penicillins [PENICILLINS] Allergy Severe DIFFICULTY Verified 10/05/23 04:10 BREATHING sertraline [Zoloft] Allergy Severe unk Verified 10/05/23 04:10 clindamycin [CLINDAMYCIN] Allergy Unknown RASH Verified 10/05/23 04:10 clonazepam [CLONAZEPAM] Allergy Unknown DIZZINESS, Verified 10/05/23 04:10 dizzy nausea lisinopril Allergy Unknown didn't Verified 10/05/23 04:10 feel well on med losartan Allergy Unknown didn't Verified 10/05/23 04:10 feel well on med metoprolol Allergy Unknown didn't Verified 10/05/23 04:10 feel well on med paroxetine [From PAXIL] Allergy Unknown UNKNOWN Verified 10/05/23 04:10 propranolol Allergy Unknown sick Verified 10/05/23 04:10 risedronate sodium Allergy Unknown UNKNOWN Verified 10/05/23 04:10 [From ACTONEL] valsartan Allergy Unknown didn't Verified 10/05/23 04:10 feel well on med benzalkonium chloride AdvReac Unknown CONFUSION Verified 10/05/23 04:10 [From TRAVATAN] escitalopram [From LEXAPRO] AdvReac Unknown AGITATION Verified 10/05/23 04:10 red yeast rice AdvReac Unknown STOMACH Verified 10/05/23 04:10 [RED YEAST RICE] UPSET timolol [From ISTALOL] AdvReac Unknown CONFUSION Verified 10/05/23 04:10 travoprost [From TRAVATAN] AdvReac Unknown CONFUSION Verified 10/05/23 04:10 CHOLESTEROL MEDS Allergy Unknown LIVER Uncoded 05/18/23 13:20 PROBLEMS Clindamycin HCl Allergy Unknown can only Uncoded 05/18/23 13:20 take 150MG Diltiazem HCl ER Allergy Unknown didn't Uncoded 05/18/23 13:20 feel well on med Review of Systems 2 Review of Systems: Constitutional : No Weight loss, No Fever, No Chills, ENT/Mouth : No Hearing loss, No Ear Pain, No Nasal Congestion, No Sinus Pain, No Hoarseness, No sore throat, No Rhinorrhea, No Swallowing Difficulty Cardiovascular : No Chest Pain, No SOB Respiratory : No Cough, No Dyspnea Gastrointestinal : No Nausea, No Vomiting, No Diarrhea, No abdominal Pain, No Hematochezia, No Melena Genitourinary : No Dysuria, No Urinary Frequency, No Hematuria, No Urinary Incontinence, Musculoskeletal : positive back pain Skin : No Skin Lesions, No rash Neuro : No Weakness, No Numbness, No Paresthesias, no loss of bowel or bladder incontinence, no saddle anesthesia All other systems reviewed and are negative [facility] Past Medical History Attestation statement: The following information was validated with the patient. Source: old records reviewed Medical History Pacemaker (~11/2020) COVID-19 vaccine series completed Anxiety Arthritis Hx of cancer of uterus Hepatitis H/O shortness of breath PAC (premature atrial contraction) Sinus pause Junctional bradycardia Statin intolerance HLD (hyperlipidemia) Bradycardia Rheumatic aortic regurgitation HTN (hypertension) PVC (premature ventricular contraction) Surgical History H/O lumpectomy History of tonsillectomy History of hysterectomy History of colonoscopy History of pacemaker (~11/23/20) History of cataract extraction Family History Family History Father HTN (hypertension) Mother No problems noted. Social History Social History Household Members: Spouse Housing: House Housing Other:: Resides at [facility] Are you a primary post acute care nurse practitioner to a significant other at home: No Do you presently have visiting nurse or other home services: No Patient Tobacco Use Status: Never used Tobacco Years Smoked: > 45 yrs ago Smoked in Last 30 Days: No Use of substances other than those prescribed or required for medical reasons: No Advance Directives: No Advance Directives Information Provided: Yes service: No Current occupational status: retired Physical Exam 2 Vital Signs: Vital Signs: Last Vital Signs Temp 97.6 F 10/05/23 05:27 Pulse 74 10/05/23 06:25 Resp 16 10/05/23 06:25 BP 194/52 H 10/05/23 06:25 Pulse Ox 96 10/05/23 06:25 O2 Del Method Room Air 10/05/23 06:25 BMI result Body Mass Index 40.4 Appearance: Alert. Oriented X3. No acute distress. Eyes: Pupils equal, round and reactive to light. ENT: Pharynx normal. atraumatic Neck: Normal inspection. Neck supple. CVS: Normal heart rate and rhythm. Pulses normal. Respiratory: No respiratory distress. Breath sounds normal. Abdomen: Soft and nontender. Back: ttp along right lower lumbar lateral spine Skin: Skin warm and dry. Normal skin color. Normal skin turgor. Extremities: No lower extremity edema. No calf ttp Neuro: Oriented X 3. No motor deficit. No sensory deficit. Course Course Course Narrative: signed out to Dr. Dinh Medications Administered Discontinued Medications Generic Name Dose Route Start Last Admin Trade Name Dakotahq PRN Reason Stop Dose Admin Oxycodone HCl 2.5 mg 10/05/23 04:10 10/05/23 04:44 Oxycodone Hcl Immed Release 5 Mg Tablet PO 10/05/23 04:11 2.5 mg ONCE ONE Administration Spironolactone 12.5 mg 10/05/23 05:37 10/05/23 05:44 Spironolactone 25 Mg Tablet PO 10/05/23 05:38 12.5 mg ONCE ONE Administration Protocol Verapamil HCl 120 mg 10/05/23 05:32 10/05/23 05:44 Verapamil Hcl Sr 120 Mg Tablet.Er PO 10/05/23 05:33 Not Given ONCE ONE Protocol Medical Decision Making Medical Decision Making [facility] Narrative: 83 yo female with PMH of HLD, HTN, bradycardia, PPM, on daily aspirin here after fall at home got up too fast felt off balance twisted and has low back pain no numbness, weakness no headstrike or LOC at this time labs, EKG CT head/cspine given age and lumbar CT scan. No extremity injury. She is GCS 15 not on thinners Differential Diagnosis Differential Diagnoses: The differential diagnosis associated with the presentation includes sprain, strain, spasm, compression fracture Admission/Observation Consideration of admission/observation: Escalation of care including admission/observation considered Lab Data [facility] Lab Attestation statement: I reviewed the patient's lab results. 10/05/23 04:43 10/05/23 04:43 Labs: Lab Results 10/05/23 Range/Units 04:43 WBC 4.6 L (4.8-10.8) X10*3/uL RBC 4.97 (4.20-5.50) X10*6/uL Hgb 14.6 (12.0-16.0) g/dl Hct 43.2 (37.0-47.0) % MCV 86.9 (80.0-98.0) fL MCH 29.4 (27.0-33.0) pg MCHC 33.8 (31.0-35.0) g/dl RDW 13.3 (11.0-16.0) % Plt Count 192 (160-400) X10*3/uL MPV 10.5 (9.4-12.3) fL Immature Gran % (Auto) 1.1 H (0.0-0.4) % Neut % (Auto) 58.3 (45-73) % Lymph % (Auto) 28.2 (20-40) % Carver % (Auto) 8.9 (2-11) % Eos % (Auto) 2.8 (0-4) % Baso % (Auto) 0.7 (0-2) % Lymph # (Auto) 1.3 (1.2-4.9) X10*3/uL Carver # (Auto) 0.4 (0.1-1.2) X10*3/uL Eos # (Auto) 0.1 (0.0-0.4) X10*3/uL Baso # (Auto) 0.0 (0.0-0.2) X10*3/uL Abs Immat Gran (auto) 0.05 H (0.00-0.03) X10*3/uL Absolute Neuts (auto) 2.7 (2.0-8.3) x10*3/uL Absolute Nucleated RBC 0.000 (0.0-0.012) X10*3/uL Nucleated RBC % (auto) 0.0 (0.0-0.2) /100WBC Sodium 140 (135-145) mmol/L Potassium 4.0 (3.3-5.1) mmol/L Chloride 107 (96-108) mmol/L Carbon Dioxide 22 (22-29) mmol/L Anion Gap 15 (12-20) BUN 31 H (9-16) mg/dL Creatinine 1.22 (0.5-1.4) mg/dL Estim Creat Clear Calc 35.9 Estimated GFR 42 Random Glucose 128 H (60-115) mg/dL Calcium 9.7 (8.4-10.2) mg/dL Independent Interpretation I performed an independent interpretation of an: EKG and CT Scan Interpretation: Rate: 73 Rhythm: NSR with 1st degree AVB Falls Of Rough: left Normal P waves. 1st degree AVB Normal QRS complex. ST T wave : no MYLES, normal qTC: 469 prior studies: no change from priors The study has been interpreted contemporaneously by me. . Independent Historian Clinical information obtained from an independent historian. History obtained from or confirmed by: EMS External Record Review External record reviewed: Inpatient record Discharge Plan Discharge Clinical Impression: Acute low back pain Qualifiers: Back pain laterality: bilateral Sciatica presence: without sciatica Qualified Code(s): M54.50 - Low back pain, unspecified Patient Disposition: Still a Patient Prescriptions: No Action verapamil 120 mg capsule,ext rel. pellets 24 hr 120 mg PO QAM Qty: 90 3RF spironolactone 25 mg tablet 12.5 mg PO DAILY Qty: 45 3RF aspirin 81 mg Tablet,Delayed Release (Dr/Ec) 81 mg PO DAILY alprazolam 0.5 mg tablet 0.5 - 1 tab PO BID PRN (Reason: Anxiety) cholecalciferol (vitamin D3) [Vitamin D3] 25 mcg (1,000 unit) Capsule 25 mcg PO DAILY calcium carbonate [Calcium 600] 600 mg calcium (1,500 mg) Tablet 1,200 mg PO DAILY lidocaine HCl 4 % adhesive patch,medicated 1 patch topical DAILY PRN (Reason: pain) Qty: 5 0RF Rx Instructions: Leave the patch on for 12 hours a day and then remove the patch until the next day. irbesartan 300 mg tablet 150 mg PO BID Rx Instructions: 150mg a.m 150mgp.m
[2023-10-05] MEDS: oxyCODONE HCl Immed Release 5 MG TABLET 2.5 MG PO (04:44)
[2023-10-05 04:48] LABS: Basophils Percent Auto 0.7 % (0-2); Eosinophils Absolute Auto 0.1 X10*3/uL (0.0-0.4); Eosinophils Percent Auto 2.8 % (0-4); Hematocrit 43.2 % (37.0-47.0); Hemoglobin 14.6 g/dl (12.0-16.0); Imm Gran Abs Auto 0.05 X10*3/uL (0.00-0.03); Imm Gran Pct Auto 1.1 % (0.0-0.4); Lymphocytes Absolute Auto 1.3 X10*3/uL (1.2-4.9); Lymphocytes Percent Auto 28.2 % (20-40); MANUAL DIFF FLAG NO; Mean Corpuscular HGB Conc 33.8 g/dl (31.0-35.0); Mean Corpuscular Hemoglobin 29.4 pg (27.0-33.0); Mean Corpuscular Volume 86.9 fL (80.0-98.0); Mean Platelet Volume 10.5 fL (9.4-12.3); Monocytes Absolute Auto 0.4 X10*3/uL (0.1-1.2); Monocytes Percent Auto 8.9 % (2-11); Neutrophils Absolute Auto 2.7 x10*3/uL (2.0-8.3); Neutrophils Percent Auto 58.3 % (45-73); Platelet Count 192 X10*3/uL (160-400); Red Blood Count 4.97 X10*6/uL (4.20-5.50); Red Cell Distribution Width 13.3 % (11.0-16.0); White Blood Count 4.6 X10*3/uL (4.8-10.8)
[2023-10-05 05:02] LABS: Anion Gap 15 (12-20); Blood Urea Nitrogen 31 mg/dL (9-16); Calcium 9.7 mg/dL (8.4-10.2); Carbon Dioxide 22 mmol/L (22-29); Chloride 107 mmol/L (96-108); Creatinine Clr Calc Pharmacy 35.9; Estimated Glomerular Filt Rate 42; Glucose Random 128 mg/dL (60-115); Sodium 140 mmol/L (135-145)
[2023-10-05 05:27] VITALS: BP 197/100; PULSE 70; RESP 16; TEMP 36.4; O2SAT 98
[2023-10-05] MEDS: Spironolactone 25 MG TABLET 12.5 MG PO (05:44)
[2023-10-05 06:25] VITALS: BP 194/52; PULSE 74; RESP 16; O2SAT 96
[2023-10-05 07:19] VITALS: BP 147/50; PULSE 76; RESP 16; TEMP 36.6; O2SAT 96
--- NOTE | 2023-10-05 07:20 | PC.NURSE ---
PT IS A/O X 4 NO SOB/KASI NOTED SPEAKS IN FULL SENTENCES. PT STATES THAT SHE HIT THE L SIDE OF FOREHEAD S/P FALL THIS AM. VERY SMALL RISE IN L SIDE OF FOREHEAD NOTED. PT CEDILLO. PT CHANGED IN HOSP GARMENT AND EMS LINEN REMOVED. PT C/O R MID BACK PAIN 01/12. NO OPEN AREAS NOTED. PT/SON AWARE OF PLAN OF CARE. WILL CONTINUE TO MONITOR.
--- NOTE | 2023-10-05 08:51 | PC.NURSE ---
PT'S TAO POSTERIOR LOWER EXT BEET RED IN COLOR. R ANT LOWER EXT HAS 14 SUTURES WHICH ARE C/D/I. TELFA APPLIED TO AREA AND COVERED WITH FLUFF DRESSING. SKIN TEAR TO R UPPER THIGH AREA. PT HAS ANY STAGE 2 OPEN AREA TO R POST THIGH AREA. L BUTTOCKS IS PEEWEE WITH LE3SS THAN A DIME SIZE OPEN AREA. L BUTTOCKS AREA (LARGE) BEET RED IN COLOR. L LOWER EXT HAS MULTIPLE SMALL FLUID FILLED AREAS. OPEN AREA NOTED TO L POST LOWER EXT. AARON AREA REDNESS NOTED, AREA CLEANSED WITH WARM WIPES FOLLOW BY [employer]. PICS TAKEN AND SENT TO ADMITTING MD. PT AWARE OF PLAN OF CARE. WILL CONTINUE TO MONITOR.
[2023-10-05 09:29] VITALS: BP 179/56; PULSE 73; RESP 16; TEMP 36.4; O2SAT 96
[2023-10-05] MEDS: Acetaminophen 325 MG TABLET 975 MG PO (09:31)
[2023-10-05 09:47] VITALS: BP 179/56; PULSE 73; RESP 16; TEMP 36.4; O2SAT 96
== END 2023-10-05 09:48 | disposition home or self-care (01) ==
PROVIDERS: Emergency Medicine; Emergency Provider Emergency Medicine; PCP Family Medicine
DX: M54.50 Low back pain, unspecified (principal); I44.0 Atrioventricular block, first degree; R51.9 Headache, unspecified; M54.2 Cervicalgia; R94.31 Abnormal electrocardiogram [ECG] [EKG]; Z79.899 Other long term (current) drug therapy
CPT/HCPCS: 36415; 70450; 72125; 72132; 80048; 85025; 93005; 99284; 99285

== ENCOUNTER → 2023-10-05 04:10 | Outpatient (BNV) | payer MEDICARE, SELFPAY | PROVIDERS: Emergency Provider Emergency Medicine; PCP Family Medicine; Visit Provider Internal Medicine Cardiovascular Disease | DX: I44.0 Atrioventricular block, first degree (principal) | CPT/HCPCS: 93010 ==

== ENCOUNTER → 2023-11-02 23:59 | Outpatient (BNV) | payer MEDICARE, SELFPAY ==
--- NOTE | 2023-11-08 17:20 | A.OFFVIS_ITS ---
Intake Visit Reasons: Remote device check- [employer] Allergies hydrochlorothiazide Allergy (Severe, Verified 10/05/23 04:10) Unknown Penicillins [PENICILLINS] Allergy (Severe, Verified 10/05/23 04:10) DIFFICULTY BREATHING sertraline [Zoloft] Allergy (Severe, Verified 10/05/23 04:10) unk clindamycin [CLINDAMYCIN] Allergy (Unknown, Verified 10/05/23 04:10) RASH clonazepam [CLONAZEPAM] Allergy (Unknown, Verified 10/05/23 04:10) DIZZINESS, dizzy nausea lisinopril Allergy (Unknown, Verified 10/05/23 04:10) didn't feel well on med losartan Allergy (Unknown, Verified 10/05/23 04:10) didn't feel well on med metoprolol Allergy (Unknown, Verified 10/05/23 04:10) didn't feel well on med paroxetine [From PAXIL] Allergy (Unknown, Verified 10/05/23 04:10) UNKNOWN propranolol Allergy (Unknown, Verified 10/05/23 04:10) sick risedronate sodium [From ACTONEL] Allergy (Unknown, Verified 10/05/23 04:10) UNKNOWN valsartan Allergy (Unknown, Verified 10/05/23 04:10) didn't feel well on med benzalkonium chloride [From TRAVATAN] Adverse Reaction (Unknown, Verified 10/05/23 04:10) CONFUSION escitalopram [From LEXAPRO] Adverse Reaction (Unknown, Verified 10/05/23 04:10) AGITATION red yeast rice [RED YEAST RICE] Adverse Reaction (Unknown, Verified 10/05/23 04:10) STOMACH UPSET timolol [From ISTALOL] Adverse Reaction (Unknown, Verified 10/05/23 04:10) CONFUSION travoprost [From TRAVATAN] Adverse Reaction (Unknown, Verified 10/05/23 04:10) CONFUSION CHOLESTEROL MEDS Allergy (Unknown, Uncoded 05/18/23 13:20) LIVER PROBLEMS Clindamycin HCl Allergy (Unknown, Uncoded 05/18/23 13:20) can only take 150MG Diltiazem HCl ER Allergy (Unknown, Uncoded 05/18/23 13:20) didn't feel well on med [facility] Medical History Pacemaker (~11/2020) COVID-19 vaccine series completed Anxiety Arthritis Hx of cancer of uterus Hepatitis H/O shortness of breath PAC (premature atrial contraction) Sinus pause Junctional bradycardia Statin intolerance HLD (hyperlipidemia) Bradycardia Rheumatic aortic regurgitation HTN (hypertension) PVC (premature ventricular contraction) Surgical History H/O lumpectomy History of tonsillectomy History of hysterectomy History of colonoscopy History of pacemaker (~11/23/20) History of cataract extraction Family History Father HTN (hypertension) Mother No problems noted. Social History Household Members: Spouse Housing: House Housing Other:: Resides at [facility] Are you a primary continuum of care manager to a significant other at home: No Do you presently have visiting nurse or other home services: No Patient Tobacco Use Status: Never used Tobacco Years Smoked: > 45 yrs ago Smoked in Last 30 Days: No Use of substances other than those prescribed or required for medical reasons: No Advance Directives: No Advance Directives Information Provided: Yes service: No Current occupational status: retired Office Procedures Cardiac Device Check Cardiac Device Check Details: Date of service- 11/02/2023 ; Battery life >9 years; chronically high RV threshold; AP 63%; BIG DATA ENGINEER 1.5 %; no significant arrhythmias. Overall normal device function. [id number] Cardiac Device Interrogation, pacemaker Procedure code (CPT) selection complete Assessment & Plan Assessment & Plan (1) Junctional bradycardia: Code(s): R00.1 - Bradycardia, unspecified Category: Medical (2) Sinus pause: Code(s): I45.5 - Other specified heart block Category: Medical Plan x Coding Level of Care Code Procedure Only Diagnoses Junctional bradycardia R00.1 Sinus pause I45.5 CPT Codes Cardiac Device Check - Cardiac Device 12: [id number] Cardiac Device Interrogation, pacemaker ([id number])
== END ==
PROVIDERS: PCP Family Medicine; Visit Provider Internal Medicine
DX: R00.1 Bradycardia, unspecified (principal); I45.5 Other specified heart block; Z95.0 Presence of cardiac pacemaker
CPT/HCPCS: 93294

== ENCOUNTER 2024-01-09 14:16 | Emergency (ER) | payer MEDICARE, SELFPAY ==
[2024-01-09] VITALS (7 sets, daily range): BP systolic 129–202; BP diastolic 44–88; PULSE 60–83; RESP 17–29; TEMP 36.5–36.9; O2SAT 94–99; BMI 38.0
--- NOTE | ~2024-01-09 | CT_ITS ---
EXAMINATION: CT ANGIOGRAM CHEST CLINICAL INFORMATION: Chest and back pain COMPARISON: None available. TECHNIQUE: Multiple axial images were obtained through the chest after the administration of 70 mL of Omnipaque 350 intravenous contrast. Extensive vascular post-processing including two-dimensional and three-dimensional reformatted images were created and reviewed on an independent workstation. This CT examination was performed using dose optimization techniques as appropriate, variously including the following: *Automated exposure control *Adjustment of mA and/or kV according to patient size (this includes techniques or standardized protocols for targeted exams where dose is matched to indication/reason for exam; i.e. extremities or head) *Use of iterative reconstruction technique DLP: 3823 mGy-cm FINDINGS: There is no evidence of pulmonary embolism. Aorta is not dilated and reveals no evidence of aneurysmal dilatation or dissection. Mild atherosclerotic calcifications seen along the aorta. Ascending aorta measured 3.4 cm and descending aorta measured 2.5 cm. SMA and celiac arteries unremarkable. Partially visualized renal arteries are unremarkable. There is trace of pericardial effusion. There is no cardiomegaly. Coronary arteries calcifications present. There is pacemaker battery in the left with leads over the right atrium and ventricle. Lungs are clear with bibasilar atelectasis, no nodules or pleural effusion. There are postsurgical changes in the right breast. Axial and unremarkable bilaterally. There is status post kyphoplasty of T12 rest of vertebral bodies visualized are unremarkable. CT/CT angio chest aorta IMPRESSION: 1. No evidence of pulmonary embolism. 2. No evidence of aortic aneurysm or dissection. 3. Trace of pericardial effusion. 4. Status post kyphoplasty of T12. Fleischner guidelines were followed.
--- NOTE | 2024-01-09 14:19 | ECG_ITS ---
Test Reason : CHEST PAIN Blood Pressure : / mmHG Vent. Rate : 082 BPM Atrial Rate : 082 BPM P-R Int : 204 ms QRS Dur : 084 ms QT Int : 410 ms P-R-T Axes : 053 -23 057 degrees QTc Int : 479 ms Normal sinus rhythm Minimal voltage criteria for LVH, may be normal variant ( R in aVL ) Borderline ECG When compared with ECG of 05-OCT-2023 04:32, No significant changes seen Referred By: Generic ED Physician Electronically Signed By:ARMANDO DRUMMOND
--- NOTE | 2024-01-09 14:53 | PC.NURSE ---
Pt presents to ED via EMS from assisted living, reports substernal CP radiating to neck starting after lunch today. Pt also reports associated SOB. Reports recent lower back fxs 6 weeks ago from a fall, pain in back. Denies fevers, N/V/D, recent illnesses or other falls. Alert and oriented, breathing increased, increased WOB. Skin warm and dry. Pt reports pain is 10/10. NSR on cardiac cath lab radiology technologist, very hypertensive.
[2024-01-09 15:35] LABS: MANUAL DIFF FLAG NO
[2024-01-09 15:42] LABS: Basophils Absolute Auto 0.1 X10*3/uL (0.0-0.2); Basophils Percent Auto 0.5 % (0-2); Eosinophils Absolute Auto 0.1 X10*3/uL (0.0-0.4); Eosinophils Percent Auto 0.5 % (0-4); Hematocrit 43.2 % (37.0-47.0); Hemoglobin 15.2 g/dl (12.0-16.0); Imm Gran Abs Auto 0.05 X10*3/uL (0.00-0.03); Imm Gran Pct Auto 0.4 % (0.0-0.4); Lymphocytes Absolute Auto 1.8 X10*3/uL (1.2-4.9); Lymphocytes Percent Auto 15.2 % (20-40); Mean Corpuscular HGB Conc 35.2 g/dl (31.0-35.0); Mean Corpuscular Hemoglobin 30.6 pg (27.0-33.0); Mean Corpuscular Volume 87.1 fL (80.0-98.0); Mean Platelet Volume 10.2 fL (9.4-12.3); Monocytes Absolute Auto 0.9 X10*3/uL (0.1-1.2); Monocytes Percent Auto 8.1 % (2-11); Neutrophils Absolute Auto 8.7 x10*3/uL (2.0-8.3); Neutrophils Percent Auto 75.3 % (45-73); Platelet Count 241 X10*3/uL (160-400); Red Blood Count 4.96 X10*6/uL (4.20-5.50); Red Cell Distribution Width 13.6 % (11.0-16.0); White Blood Count 11.6 X10*3/uL (4.8-10.8)
[2024-01-09 16:06] LABS: Troponin-I High Sensitivity 4.6 ng/L (<3.5-17.0)
--- NOTE | 2024-01-09 16:07 | ED_ITS ---
HPI - Chest Pain General Chief Complaint: Chest Pain Stated Complaint: CP L ARM PAIN Time Seen by Provider: 01/09/24 16:04 Source: patient, family (patient's son) and EMS Mode of arrival: EMS Limitations: no limitations History of Present Illness ED Provider: Linda Howe PA-C HPI narrative: 83 year old female with a PMHx of HTN, HLD, pacemaker, PACs, sinus pause, junctional bradycardia, rheumatic aortic regurgitation, and PVCs presents to the ER from assisted living with son at bedside due to chest pain that began after eating lunch around 12 pm. States that she went to sit down on her couch and suddenly started to feel substernal chest pain that felt crampy and radiates to neck, upper back, and bilateral jaw. States that pain is 8/10 and constant. Took Tylenol with no relief. Reports associated SOB, tingling bilateral lower extremities, and headache as if her brain is going to blow up. Denies fever, chills, vision changes, palpitations, N/V, and urinary symptoms. Reports back fracture from fall 6 weeks ago. Risk Factors Coronary artery disease risk factors: hyperlipidemia and hypertension Related Data Home Medications ?Medication ?Instructions ?Recorded ?Confirmed irbesartan 300 mg tablet 150 mg PO BID 07/23/20 01/09/24 aspirin 81 mg tablet,delayed 81 mg PO DAILY 11/16/20 01/09/24 release calcium carbonate (Calcium 600) 1,200 mg PO DAILY 11/16/20 01/09/24 cholecalciferol (vitamin D3) 25 25 mcg PO DAILY 11/16/20 01/09/24 mcg (1,000 unit) capsule (Vitamin D3) Previous Rx's ?Medication ?Instructions ?Recorded lidocaine HCl 4 % topical patch 1 patch topical DAILY PRN pain #5 05/04/22 ea verapamil 120 mg 24 hr 120 mg PO QAM #90 caps 02/25/23 capsule,extended release spironolactone 25 mg tablet 12.5 mg (1/2 x 25 mg) PO DAILY #45 08/25/23 tabs Allergies Allergy/AdvReac Type Severity Reaction Status Date / Time hydrochlorothiazide Allergy Severe Unknown Verified 01/09/24 14:32 Penicillins [PENICILLINS] Allergy Severe DIFFICULTY Verified 10/05/23 04:10 BREATHING sertraline [Zoloft] Allergy Severe unk Verified 10/05/23 04:10 clindamycin [CLINDAMYCIN] Allergy Unknown RASH Verified 10/05/23 04:10 clonazepam [CLONAZEPAM] Allergy Unknown DIZZINESS, Verified 10/05/23 04:10 dizzy nausea lisinopril Allergy Unknown didn't Verified 10/05/23 04:10 feel well on med losartan Allergy Unknown didn't Verified 10/05/23 04:10 feel well on med metoprolol Allergy Unknown didn't Verified 10/05/23 04:10 feel well on med paroxetine [From PAXIL] Allergy Unknown UNKNOWN Verified 10/05/23 04:10 propranolol Allergy Unknown sick Verified 10/05/23 04:10 risedronate sodium Allergy Unknown UNKNOWN Verified 10/05/23 04:10 [From ACTONEL] valsartan Allergy Unknown didn't Verified 10/05/23 04:10 feel well on med benzalkonium chloride AdvReac Unknown CONFUSION Verified 10/05/23 04:10 [From TRAVATAN] escitalopram [From LEXAPRO] AdvReac Unknown AGITATION Verified 10/05/23 04:10 red yeast rice AdvReac Unknown STOMACH Verified 10/05/23 04:10 [RED YEAST RICE] UPSET timolol [From ISTALOL] AdvReac Unknown CONFUSION Verified 10/05/23 04:10 travoprost [From TRAVATAN] AdvReac Unknown CONFUSION Verified 10/05/23 04:10 CHOLESTEROL MEDS Allergy Unknown LIVER Uncoded 05/18/23 13:20 PROBLEMS Clindamycin HCl Allergy Unknown can only Uncoded 05/18/23 13:20 take 150MG Diltiazem HCl ER Allergy Unknown didn't Uncoded 05/18/23 13:20 feel well on med Review of Systems 2 Constitutional: Constitutional: Reports no additional constitutional complaints, Denies chills, Denies fever(s) and Denies night sweats Eyes: Eyes: Reports no additional eye complaints, Denies blurry vision, Denies change in vision, Denies diplopia, Denies eye discharge, Denies loss of vision and Denies eye pain ENT: Denies dizziness Cardiovascular: Cardiovascular: Reports no additional cardiovascular complaints, Reports chest pain, Denies lightheadedness, Denies Loss of Consciousness, Reports radiating jaw, neck or arm pain and Reports dyspnea Respiratory: Respiratory: Reports no additional respiratory complaints and Reports dyspnea Gastrointestinal: Gastrointestinal: Reports no additional gastrointestinal complaints, Denies abdominal pain, Denies melena, Denies hematochezia, Denies change in bowel habits and Denies change in stool character Genitourinary: Genitourinary: Denies hematuria, Denies urinary frequency, Denies dysuria, Denies urinary incontinence, Denies urinary hesitancy and Denies urinary urgency Musculoskeletal: Musculoskeletal: Reports no additional musculoskeletal complaints, Reports numbness and Reports tingling Neurologic: Denies dizziness, Denies loss of vision, Reports numbness and Reports tingling Psychiatric: Psychiatric: Reports no additional psychiatric complaints Endocrine: Endocrine: Reports no additional endocrine complaints Hematologic/Lymphatic: Hematologic/Lymphatic: Reports no additional hematologic/lymphatic complaints Allergic/Immunologic: Allergic/Immunologic: Reports no additional allergic/immunologic complaints [facility] Past Medical History Medical History Pacemaker (~11/2020) COVID-19 vaccine series completed Anxiety Arthritis Hx of cancer of uterus Hepatitis H/O shortness of breath PAC (premature atrial contraction) Sinus pause Junctional bradycardia Statin intolerance HLD (hyperlipidemia) Bradycardia Rheumatic aortic regurgitation HTN (hypertension) PVC (premature ventricular contraction) Surgical History H/O lumpectomy History of tonsillectomy History of hysterectomy History of colonoscopy History of pacemaker (~11/23/20) History of cataract extraction Family History Family History Father HTN (hypertension) Mother No problems noted. Social History Social History Household Members: Spouse Housing: House Housing Other:: Resides at [facility] Are you a primary intensive care anaesthetist to a significant other at home: No Do you presently have visiting nurse or other home services: No Patient Tobacco Use Status: Never used Tobacco Years Smoked: > 45 yrs ago Smoked in Last 30 Days: No Use of substances other than those prescribed or required for medical reasons: No Advance Directives: No Advance Directives Information Provided: No service: No Current occupational status: retired Physical Exam 2 Vital Signs: Vital Signs: Last Vital Signs Temp 98.4 F 01/09/24 22:00 Pulse 62 01/09/24 22:00 Resp 18 01/09/24 22:00 BP 132/45 L 01/09/24 22:00 Pulse Ox 94 01/09/24 22:00 O2 Del Method Room Air 01/09/24 22:00 BMI result Body Mass Index 38.0 Const: General: cooperative, healthy appearing and anxious O rientation/consciousness: oriented to person, oriented to place and oriented to time Neck: Neck: Yes normal visual inspection and Yes full ROM Chest: Chest palpation & inspection: normal inspection of the chest Resp: Effort & Inspection: normal respiratory effort and able to speak in complete sentences Auscultation: clear to auscultation bilaterally Cardio: Jugular venous distension: no JVD Palpation: normal PMI Rate: r egular rate Rhythm: regular rhythm GI: Inspection: Yes normal to inspection Auscultation: normal bowel sounds Neuro: General: oriented to person, oriented to place and oriented to time Medications Administered Generic Name Dose Route Start Last Admin Trade Name Freq PRN Reason Stop Dose Admin Acetaminophen 650 mg 01/09/24 20:12 01/09/24 20:55 Acetaminophen 325 Mg Tablet PO 650 mg ONCE PRN Administration Pain, Mild (Pain Scale 1-3) Aspirin 81 mg 01/09/24 20:30 01/09/24 20:55 Aspirin Enteric Coated 81 Mg Tablet. PO 81 mg DAILY HIEU Administration Pt Own Irbesartan 0.5 each 01/10/24 09:00 01/09/24 21:46 300 Mg PO 0.5 each BID HIEU Administration Spironolactone 12.5 mg 01/09/24 20:30 01/09/24 20:37 Spironolactone 25 Mg Tablet PO Not Given DAILY [facility] Protocol Vitamin D 25 mcg 01/09/24 20:30 01/09/24 20:38 Cholecalciferol (Vitamin D3) 25 Mcg Tablet PO Not Given DAILY HIEU Discontinued Medications Generic Name Dose Route Start Last Admin Trade Name Freq PRN Reason Stop Dose Admin Alprazolam 0.5 mg 01/09/24 18:01 01/09/24 18:17 Alprazolam 0.5 Mg Tablet PO 01/09/24 18:02 0.5 mg ONCE ONE Administration Iohexol 100 ml 01/09/24 17:44 01/09/24 17:45 Iohexol 350 Mg/Ml 100 Ml Infus..Btl IV 01/09/24 17:45 70 ml ONCE ONE Administration Ketorolac Tromethamine 15 mg 01/09/24 18:01 01/09/24 18:15 Ketorolac Tromethamine 15 Mg/Ml Vial IVPUSH 01/09/24 18:02 15 mg ONCE ONE Administration Lidocaine 1 patch 01/09/24 18:01 01/09/24 18:17 Lidocaine 4 % Patch Adh..Patch TRANSDERMA 01/09/24 18:02 1 patch ONCE ONE Administration Protocol Non-Formulary Medication 1,200 mg 01/09/24 20:30 01/09/24 20:38 Calcium Carbonate [Calcium 600] PO Not Given DAILY HIEU Ondansetron HCl 4 mg 01/09/24 17:32 01/09/24 17:55 Ondansetron Hcl 4 Mg/2 Ml Vial IVPUSH 01/09/24 17:33 4 mg ONCE ONE Administration Pantoprazole Sodium 40 mg 01/09/24 16:36 01/09/24 16:45 Pantoprazole Sodium 40 Mg/10 Ml Vial IVPUSH 01/09/24 16:37 40 mg ONCE ONE Administration Medical Decision Making Medical Decision Making [facility] Narrative: Patient is an 83 year old assigned female at with a history of HTN, HLD, pacemaker, PACs, sinus pause, junctional bradycardia, rheumatic aortic regurgitation, and PVCs presenting to the emergency department today with chest pain, back pain, and feeling generally unwell. Patient's physical exam was unremarkable. Patient's blood work was unremarkable including negative troponins. Patient's EKG was unremarkable. Patient's chest CTA showed no acute process. I explained my physical exam findings as well as all test results to the patient and the patient's son. I answered all questions asked by the patient and the patient's son. Patient received a lidocaine patch and toradol which she stated helped her pain some but didn't resolve it. Patient refused morphine. I consulted with cardiology who stated they didn't believe this was cardiac in nature. I attempted to admit the patient for inpatient observation however, the hospitalist team declined. I had a long conversation with the patient and the patient's family members at the bed side. Together, through shared decision making, it was decide the patient would remain a patient in the ER and be re- evaluated in the morning by the morning MARIO. Patient and the patient's family verbalized agreement and understanding with this treatment plan and re- evaluation in the morning. Differential Diagnosis Differential Diagnoses: The differential diagnosis associated with the presentation includes Chest pain Back pain Anxiety Musculoskeletal pain NSTEMI STEMI Admission/Observation Consideration of admission/observation: Escalation of care including admission/observation considered Patient would have been admitted to the hospital had her work up had any findings where hospital admission was appropriate and her clinical presentation warranted hospital admission. Consult Healthcare Provider Management of the patient was discussed with: Hospitalist (spoke to the hospitalist team as noted in the MDM Rationale portion of this note.) and Printed Circuit Board Designer (spoke to the powder line repairer as noted in the MDM Rationale portion of this note.) Lab Data [facility] Lab Attestation statement: I reviewed the patient's lab results. My interpretation of these results are in the MDM Rationale portion of this note. 01/09/24 15:26 01/09/24 15:26 Labs: Lab Results 01/09/24 01/09/24 01/09/24 Range/Units 15:26 16:54 18:42 WBC 11.6 H (4.8-10.8) X10*3/uL RBC 4.96 (4.20-5.50) X10*6/uL Hgb 15.2 (12.0-16.0) g/dl Hct 43.2 (37.0-47.0) % MCV 87.1 (80.0-98.0) fL MCH 30.6 (27.0-33.0) pg MCHC 35.2 H (31.0-35.0) g/dl RDW 13.6 (11.0-16.0) % Plt Count 241 D (160-400) X10*3/uL MPV 10.2 (9.4-12.3) fL Immature Gran % (Auto) 0.4 (0.0-0.4) % Neut % (Auto) 75.3 H (45-73) % Lymph % (Auto) 15.2 L (20-40) % [place] % (Auto) 8.1 (2-11) % Eos % (Auto) 0.5 (0-4) % Baso % (Auto) 0.5 (0-2) % Lymph # (Auto) 1.8 (1.2-4.9) X10*3/uL [place] # (Auto) 0.9 (0.1-1.2) X10*3/uL Eos # (Auto) 0.1 (0.0-0.4) X10*3/uL Baso # (Auto) 0.1 (0.0-0.2) X10*3/uL Abs Immat Gran (auto) 0.05 H (0.00-0.03) X10*3/uL Absolute Neuts (auto) 8.7 H (2.0-8.3) x10*3/uL Absolute Nucleated RBC 0.000 (0.0-0.012) X10*3/uL Nucleated RBC % (auto) 0.0 (0.0-0.2) /100WBC PT 10.8 L (11.1-13.3) SEC INR 0.9 (0.9-1.1) Sodium 137 (135-145) mmol/L Potassium 4.2 (3.3-5.1) mmol/L Chloride 103 (96-108) mmol/L Carbon Dioxide 21 L (22-29) mmol/L Anion Gap 17 (12-20) BUN 22 H (9-16) mg/dL Creatinine 1.08 (0.5-1.4) mg/dL Estim Creat Clear Calc 39.1 Estimated GFR 48 Random Glucose 129 H (60-115) mg/dL Calcium 10.0 (8.4-10.2) mg/dL Magnesium 2.2 (1.6-2.6) mg/dL Total Bilirubin 0.7 (0.0-1.0) mg/dL AST 27 (5-31) U/L ALT 12 (0-31) U/L Alkaline Phosphatase 90 (39-117) U/L Troponin I High Sens 4.6 5.4 (<3.5-17.0) ng/L B-Natriuretic Peptide 200 H (<100) pg/mL Total Protein 7.4 (6.5-8.0) g/dL Albumin 4.1 (3.5-5.0) g/dL Independent Interpretation I performed an independent interpretation of an: EKG and CT Scan Interpretation: My interpretation is in agreement with the radiologist's impression of this imaging study. - EXAMINATION: CT ANGIOGRAM CHEST CLINICAL INFORMATION: Chest and back pain COMPARISON: None available. TECHNIQUE: Multiple axial images were obtained through the chest after the administration of 70 mL of Omnipaque 350 intravenous contrast. Extensive vascular post-processing including two-dimensional and three-dimensional reformatted images were created and reviewed on an independent workstation. This CT examination was performed using dose optimization techniques as appropriate, variously including the following: *Automated exposure control *Adjustment of mA and/or kV according to patient size (this includes techniques or standardized protocols for targeted exams where dose is matched to indication/reason for exam; i.e. extremities or head) *Use of iterative reconstruction technique DLP: 3823 mGy-cm FINDINGS: There is no evidence of pulmonary embolism. Aorta is not dilated and reveals no evidence of aneurysmal dilatation or dissection. Mild atherosclerotic calcifications seen along the aorta. Ascending aorta measured 3.4 cm and descending aorta measured 2.5 cm. SMA and celiac arteries unremarkable. Partially visualized renal arteries are unremarkable. There is trace of pericardial effusion. There is no cardiomegaly. Coronary arteries calcifications present. There is pacemaker battery in the left with leads over the right atrium and ventricle. Lungs are clear with bibasilar atelectasis, no nodules or pleural effusion. There are postsurgical changes in the right breast. Axial and unremarkable bilaterally. There is status post kyphoplasty of T12 rest of vertebral bodies visualized are unremarkable. CT/CT angio chest aorta IMPRESSION: 1. No evidence of pulmonary embolism. 2. No evidence of aortic aneurysm or dissection. 3. Trace of pericardial effusion. 4. Status post kyphoplasty of T12. Fleischner guidelines were followed. Dictated By: Gladys Mayorga MD Signed By: Electronically signed by Gladys Mayorga MD 01/09/24 1759 - Vent. Rate: 082 BPM Atrial Rate: 082 BPM P-R Int: 204 ms QRS Dur: 084 ms QT Int: 410 ms P-R-T Axes: 053 -23 057 degrees QTc Int: 479 ms Normal sinus rhythm Minimal voltage criteria for LVH, may be normal variant ( R in aVL ) Borderline ECG When compared with ECG of 05-OCT-2023 04:32, Criteria for Septal infarct are no longer Present DD/ 1423 Radiology Impression Discussion of test interpretation with radiology: I have reviewed the radiologist's reading. Independent Historian Clinical information obtained from an independent historian. History obtained from or confirmed by: EMS (EMS provided additional history and confirmed the history provided by the patient.) and Other (patient's son provided additional history and confirmed the history provided by the patient.) Chronic Conditions Patient?s care impacted by: Hypertension Scores Heart Score History: -1- moderately suspicious ECG: -1- non specific repolarization disturbance Age: -2- > or = 65 Risk factory: -2- 3 or more risk factors or treated atherosclerosis Troponin: -0- < or = normal limit Score: 6 Risk: 16.6% Critical Care Time Critical Care Time Critical Care Time: Yes Total Critical Care Time: 38 Attestation: I spent 38 minutes of Critical Care Time with this patient. This does not include time spent on separately reported billable procedures. Discharge Plan Discharge Clinical Impression: Chest discomfort, Anxiety Patient Disposition: Still a Patient Prescriptions: No Action verapamil 120 mg capsule,ext rel. pellets 24 hr 120 mg PO QAM Qty: 90 3RF spironolactone 25 mg tablet 12.5 mg PO DAILY Qty: 45 3RF aspirin 81 mg Tablet,Delayed Release (Dr/Ec) 81 mg PO DAILY cholecalciferol (vitamin D3) [Vitamin D3] 25 mcg (1,000 unit) Capsule 25 mcg PO DAILY calcium carbonate [Calcium 600] 600 mg calcium (1,500 mg) Tablet 1,200 mg PO DAILY lidocaine HCl 4 % adhesive patch,medicated 1 patch topical DAILY PRN (Reason: pain) Qty: 5 0RF Rx Instructions: Leave the patch on for 12 hours a day and then remove the patch until the next day. irbesartan 300 mg tablet 150 mg PO BID Rx Instructions: 150mg a.m 150mgp.m Print Language: Kiswahili
[2024-01-09 16:10] LABS: B Type Natriuretic Peptide 200 pg/mL (<100)
[2024-01-09 16:25] LABS: Alanine Aminotransferase 12 U/L (0-31); Albumin Level 4.1 g/dL (3.5-5.0); Alkaline Phosphatase 90 U/L (39-117); Anion Gap 17 (12-20); Aspartate Amino Transferase 27 U/L (5-31); Bilirubin Total 0.7 mg/dL (0.0-1.0); Blood Urea Nitrogen 22 mg/dL (9-16); Carbon Dioxide 21 mmol/L (22-29); Chloride 103 mmol/L (96-108); Creatinine Clr Calc Pharmacy 39.1; Estimated Glomerular Filt Rate 48; Glucose Random 129 mg/dL (60-115); Magnesium 2.2 mg/dL (1.6-2.6); Potassium 4.2 mmol/L (3.3-5.1); Sodium 137 mmol/L (135-145); Total Protein 7.4 g/dL (6.5-8.0)
[2024-01-09] MEDS: Pantoprazole Sodium 40 MG/10 ML VIAL IVPUSH (16:45)
[2024-01-09 17:20] LABS: INTERNATIONAL NORM RATIO 0.9 (0.9-1.1); Prothrombin Time 10.8 SEC (11.1-13.3)
[2024-01-09] MEDS: iohexoL 350 MG/ML 100 ML INFUS..BTL IV (17:45)
[2024-01-09] MEDS: ondansetron HCL 4 MG/2 ML VIAL IVPUSH (17:55)
[2024-01-09] MEDS: Ketorolac Tromethamine 15 MG/ML VIAL IVPUSH (18:15)
[2024-01-09] MEDS: Lidocaine 4 % Patch ADH..PATCH 1 PATCH TRANSDERMA (18:17)
[2024-01-09] MEDS: ALPRAZolam 0.5 MG TABLET PO (18:17)
[2024-01-09 19:11] LABS: Troponin-I High Sensitivity 5.4 ng/L (<3.5-17.0)
--- NOTE | 2024-01-09 20:14 | P.EN_ITS ---
Event Note Date of Service: 01/09/24 Event Note: Called to bedside to evaluate pt for admission. She recently underwent kyphoplasty at T12 due to fracture. Has been doing well since. This afternoon was sitting eating lunch and developed L should pain and pain the neck. She was concerned so googled symptoms of a heart attack and contacted [facility] staff who called EMS. The patient is reporting midsternal sharp chest pain making it difficult to take a deep breath due to pain. pain radiates to pain and acorss the upper back. Denies recent injury. Her trops are WNL and flat x2. EKG is without evidence of ischemia. wood pattern maker is reassuring. On exam, heart RRR, lungs CTA. She has reproducible ttp across the anterior chest midline thoracic back and bilateral paraspinal ttp at the level of about T4-T12. No focal weakness or paresthesias. Pain has improved to a 5/10 with ketorolac and lidocaine patch as well as alprazolam. Vitals are stable without hypertensive at time of exam. Cardiology was consulted who did not recommend any further intervention from a cardiac standpoint. She is refusing opiates. At this time, pt does not require admission for her chest pain and is refusing IV pain management therapies that would warrant admission. pain is also reasonably controlled at this time. Time Spent With Patient Time: Total time managing care of this patient today ____ minutes.
--- NOTE | 2024-01-09 20:25 | PC.NURSE ---
Med rec completed by TUNDE
[2024-01-09] MEDS: Aspirin Enteric Coated 81 MG TABLET.DR PO (20:55)
[2024-01-09] MEDS: Acetaminophen 325 MG TABLET 650 MG PO (20:55)
--- NOTE | 2024-01-09 21:47 | PC.NURSE ---
Pt's family brought in own med bottle from pts home per pharmacy request. Pill bottle brought to pharmacy by sup. Per provider and pharmacy give pt dose for tonight, unscheduled. (was order previously but unverified due to pharmacy not carrying it).
[2024-01-10] MEDS: Acetaminophen 325 MG TABLET 975 MG PO (05:37)
[2024-01-10 06:00] VITALS: BP 171/68; PULSE 60; RESP 16; TEMP 37.1; O2SAT 96
[2024-01-10] MEDS: Cholecalciferol (Vitamin D3) 25 MCG TABLET PO (09:57)
[2024-01-10] MEDS: Calcium Oyster Shell Elemental 500 MG TABLET 1000 MG PO (09:57)
[2024-01-10] MEDS: Spironolactone 25 MG TABLET 12.5 MG PO (09:57)
[2024-01-10] MEDS: VerapamiL HCL SR 120 MG TABLET.ER PO (09:59)
[2024-01-10 14:04] VITALS: BP 141/44; PULSE 70; RESP 18; TEMP 36.4; O2SAT 95
[2024-01-10 14:36] VITALS: BP 141/44; PULSE 70; RESP 18; TEMP 36.4; O2SAT 95
== END 2024-01-10 14:38 | disposition home or self-care (01) ==
PROVIDERS: Physician Assistant; Physician Assistant Medical; Emergency Provider Emergency Medicine Emergency Medical Services; PCP Family Medicine
DX: R07.9 Chest pain, unspecified (principal); F41.9 Anxiety disorder, unspecified; R06.02 Shortness of breath; R20.2 Paresthesia of skin; R51.9 Headache, unspecified; I49.3 Ventricular premature depolarization; I10 Essential (primary) hypertension; E78.5 Hyperlipidemia, unspecified; Z95.0 Presence of cardiac pacemaker; Z79.82 Long term (current) use of aspirin; Z79.899 Other long term (current) drug therapy
CPT/HCPCS: 36415; 71275; 80053; 83735; 83880; 84484; 85025; 85610; 93005; 96374; 96375; 99285; J1885; J2405; J2470; Q9967

== ENCOUNTER → 2024-01-09 14:19 | Outpatient (BNV) | payer MEDICARE, SELFPAY | PROVIDERS: Emergency Provider Emergency Medicine Emergency Medical Services; PCP Family Medicine; Visit Provider Internal Medicine | DX: R07.9 Chest pain, unspecified (principal) | CPT/HCPCS: 93010 ==

== ENCOUNTER → 2024-01-31 23:59 | Outpatient (BNV) | payer MEDICARE, SELFPAY ==
--- NOTE | 2024-02-04 12:15 | A.OFFVIS_ITS ---
Intake Visit Reasons: Remote device check- Medtronic Allergies hydrochlorothiazide Allergy (Severe, Verified 01/09/24 14:32) Unknown Penicillins [PENICILLINS] Allergy (Severe, Verified 10/05/23 04:10) DIFFICULTY BREATHING sertraline [Zoloft] Allergy (Severe, Verified 10/05/23 04:10) unk clindamycin [CLINDAMYCIN] Allergy (Unknown, Verified 10/05/23 04:10) RASH clonazepam [CLONAZEPAM] Allergy (Unknown, Verified 10/05/23 04:10) DIZZINESS, dizzy nausea lisinopril Allergy (Unknown, Verified 10/05/23 04:10) didn't feel well on med losartan Allergy (Unknown, Verified 10/05/23 04:10) didn't feel well on med metoprolol Allergy (Unknown, Verified 10/05/23 04:10) didn't feel well on med paroxetine [From PAXIL] Allergy (Unknown, Verified 10/05/23 04:10) UNKNOWN propranolol Allergy (Unknown, Verified 10/05/23 04:10) sick risedronate sodium [From ACTONEL] Allergy (Unknown, Verified 10/05/23 04:10) UNKNOWN valsartan Allergy (Unknown, Verified 10/05/23 04:10) didn't feel well on med benzalkonium chloride [From TRAVATAN] Adverse Reaction (Unknown, Verified 10/05/23 04:10) CONFUSION escitalopram [From LEXAPRO] Adverse Reaction (Unknown, Verified 10/05/23 04:10) AGITATION red yeast rice [RED YEAST RICE] Adverse Reaction (Unknown, Verified 10/05/23 04:10) STOMACH UPSET timolol [From ISTALOL] Adverse Reaction (Unknown, Verified 10/05/23 04:10) CONFUSION travoprost [From TRAVATAN] Adverse Reaction (Unknown, Verified 10/05/23 04:10) CONFUSION CHOLESTEROL MEDS Allergy (Unknown, Uncoded 05/18/23 13:20) LIVER PROBLEMS Clindamycin HCl Allergy (Unknown, Uncoded 05/18/23 13:20) can only take 150MG Diltiazem HCl ER Allergy (Unknown, Uncoded 05/18/23 13:20) didn't feel well on med [facility] Medical History Pacemaker (~11/2020) COVID-19 vaccine series completed Anxiety Arthritis Hx of cancer of uterus Hepatitis H/O shortness of breath PAC (premature atrial contraction) Sinus pause Junctional bradycardia Statin intolerance HLD (hyperlipidemia) Bradycardia Rheumatic aortic regurgitation HTN (hypertension) PVC (premature ventricular contraction) Surgical History H/O lumpectomy History of tonsillectomy History of hysterectomy History of colonoscopy History of pacemaker (~11/23/20) History of cataract extraction Family History Father HTN (hypertension) Mother No problems noted. 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 Overall normal device function. [id number] Cardiac Device Interrogation, pacemaker Procedure code (CPT) selection complete Assessment & Plan Assessment & Plan (1) Bradycardia: Code(s): R00.1 - Bradycardia, unspecified Category: Medical Plan x Coding Level of Care Code Procedure Only Diagnoses Bradycardia R00.1 CPT Codes Cardiac Device Check - Cardiac Device 12: [id number] Cardiac Device Interrogation, pacemaker ([id number])
== END ==
PROVIDERS: PCP Family Medicine; Visit Provider Internal Medicine
DX: R00.1 Bradycardia, unspecified (principal); Z95.0 Presence of cardiac pacemaker
CPT/HCPCS: 93294

== ENCOUNTER 2024-02-09 08:56 | Outpatient (AMB) | payer MEDICARE, SELFPAY ==
[2024-02-09 09:01] VITALS: BP 156/70; PULSE 56; BMI 37.7
--- NOTE | 2024-02-09 09:01 | A.OFFVIS_ITS ---
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 Required: No Accompanied by: Child Allergies hydrochlorothiazide Allergy (Severe, Verified 01/09/24 14:32) Unknown Penicillins [PENICILLINS] Allergy (Severe, Verified 10/05/23 04:10) DIFFICULTY BREATHING sertraline [Zoloft] Allergy (Severe, Verified 10/05/23 04:10) unk clindamycin [CLINDAMYCIN] Allergy (Unknown, Verified 10/05/23 04:10) RASH clonazepam [CLONAZEPAM] Allergy (Unknown, Verified 10/05/23 04:10) DIZZINESS, dizzy nausea lisinopril Allergy (Unknown, Verified 10/05/23 04:10) didn't feel well on med losartan Allergy (Unknown, Verified 10/05/23 04:10) didn't feel well on med metoprolol Allergy (Unknown, Verified 10/05/23 04:10) didn't feel well on med paroxetine [From PAXIL] Allergy (Unknown, Verified 10/05/23 04:10) UNKNOWN propranolol Allergy (Unknown, Verified 10/05/23 04:10) sick risedronate sodium [From ACTONEL] Allergy (Unknown, Verified 10/05/23 04:10) UNKNOWN valsartan Allergy (Unknown, Verified 10/05/23 04:10) didn't feel well on med benzalkonium chloride [From TRAVATAN] Adverse Reaction (Unknown, Verified 10/05/23 04:10) CONFUSION escitalopram [From LEXAPRO] Adverse Reaction (Unknown, Verified 10/05/23 04:10) AGITATION red yeast rice [RED YEAST RICE] Adverse Reaction (Unknown, Verified 10/05/23 04:10) STOMACH UPSET timolol [From ISTALOL] Adverse Reaction (Unknown, Verified 10/05/23 04:10) CONFUSION travoprost [From TRAVATAN] Adverse Reaction (Unknown, Verified 10/05/23 04:10) CONFUSION CHOLESTEROL MEDS Allergy (Unknown, Uncoded 05/18/23 13:20) LIVER PROBLEMS Clindamycin HCl Allergy (Unknown, Uncoded 05/18/23 13:20) can only take 150MG Diltiazem HCl ER Allergy (Unknown, Uncoded 05/18/23 13:20) didn't feel well on med Medication List - Last Reconciled 02/09/24 by Matty Sawyer MD apixaban (Eliquis) 5 mg PO BID calcium carbonate (Calcium 600) 1,200 mg PO DAILY cholecalciferol (vitamin D3) (Vitamin D3) 25 mcg PO DAILY irbesartan 150 mg PO BID lidocaine 5% 1 patch topical DAILY lidocaine HCl 4% 1 patch topical DAILY PRN spironolactone 12.5 mg (1/2 x 25 mg) PO DAILY verapamil ER 120 mg PO QAM HPI Comments Details: Xuan returns for follow-up regarding pacemaker as well as other cardiac issues. To recall, she was on verapamil for PVCs but was going into deisy-arrhythmias including junctional rhythm. Subsequently, she received a permanent pacemaker. Recently, she was having some palpitations and in that context she was also having atrial fibrillation seen on the remote pacemaker monitoring. Subsequently put on Eliquis. Otherwise, she is doing generally okay. No new concerns. [facility] Medical History (Updated 02/09/24 @ 09:25 by Matty Sawyer MD) Pacemaker (~11/2020) COVID-19 vaccine series completed Anxiety Arthritis Hx of cancer of uterus Hepatitis H/O shortness of breath PAC (premature atrial contraction) Sinus pause Junctional bradycardia Statin intolerance HLD (hyperlipidemia) Bradycardia Rheumatic aortic regurgitation HTN (hypertension) PVC (premature ventricular contraction) Surgical History (Updated 02/09/24 @ 09:07 by Sandra Beck CMA) History of kyphoplasty H/O lumpectomy History of tonsillectomy History of hysterectomy History of colonoscopy History of pacemaker (~11/23/20) History of cataract extraction Family History Father HTN (hypertension) Mother No problems noted. Social History Household Members: Spouse Housing: House Housing Other:: Resides at [facility] Are you a primary healthcare administration internship to a significant other at home: No Do you presently have visiting nurse or other home services: No Patient Tobacco Use Status: Never used Tobacco Years Smoked: > 45 yrs ago service: No Current occupational status: retired Review of Systems Const Denies chills, Denies fatigue, Denies fever(s), Denies weight gain and Denies weight loss ENT Denies dizziness Card Denies chest pain, Denies leg edema, Denies lightheadedness, Denies palpitations, Denies dyspnea on exertion, Denies orthopnea and Denies other Resp Denies cough and Denies dyspnea on exertion GI Denies hematochezia and Denies change in stool character Musc Denies abnormal gait, Denies muscle weakness, Denies numbness, Denies radiating pain into limb and Denies tingling Neuro Denies abnormal gait, Denies dizziness, Denies numbness and Denies tingling Endo Denies fatigue and Denies palpitations Physical Exam Vital Signs: Last Vital Signs Pulse 56 02/09/24 09: BP 156/70 H 02/09/24 09:01 BMI result Body Mass Index 37.7 Const General: comfortable and no acute distress Orientation/consciousness: patient oriented x3 HEENT Other: Unremarkable Head: Yes normal to inspection Neck Neck: Yes normal visual inspection Chest Chest palpation & inspection: normal inspection of the chest Resp Auscultation: clear to auscultation bilaterally Cardio Palpation: normal PMI Heart sounds: S1 normal heart sound present, S2 normal heart sound present, no gallops, no murmurs and no rubs GI Palpation (GI): Soft to palpation Back/Spine/Pelvis Other: unremarkable Skin General skin exam: no rashes or lesions noted Neuro General: patient oriented x3 Extrem General: Yes normal to inspection Psych Mental Status: mental status grossly normal Assessment & Plan Assessment & Plan (1) Junctional bradycardia: Code(s): R00.1 - Bradycardia, unspecified Category: Medical Plan: s/p permanent pacemaker implantation. (2) PVC (premature ventricular contraction): Code(s): I49.3 - Ventricular premature depolarization Category: Medical Plan: History of frequent PVCs. No concerning symptoms in that regard. (3) PAF (paroxysmal atrial fibrillation): Code(s): I48.0 - Paroxysmal atrial fibrillation Category: Medical Plan: Seems to be low burden. Any case, she is already on verapamil as well as Eliquis. If more frequent episodes, we can probably go up on the verapamil dosing. (4) Other and unspecified hyperlipidemia: Code(s): E78.5 - Hyperlipidemia, unspecified Category: Medical Plan: Very high lipids. However, statin intolerant. She also tried Praluent but had numerous side effects but not sure if it is truly from the medication. Not willing to try anything. (5) Essential hypertension: Code(s): I10 - Essential (primary) hypertension Category: Medical Plan: On meds including irbesartan, spironolactone, verapamil. We have discussed this numerous times including today but apparently home blood pressures are much lower and only the 130s or so. She blames it on anxiety coming here. Also she is intolerant to so many medications and hence no further changes. Orders: Orders CA echo transthoracic complete 6 Months I48.0 - Paroxysmal atrial fibrillation Coding Level of Care Code Est Pt Level 4 (20375) Diagnoses Junctional bradycardia R00.1 PVC (premature ventricular contraction) I49.3 PAF (paroxysmal atrial fibrillation) I48.0 Other and unspecified hyperlipidemia E78.5 Essential hypertension I10
== END 2024-02-09 09:32 | disposition home or self-care (01) ==
PROVIDERS: PCP Family Medicine; Visit Provider Internal Medicine
DX: I48.0 Paroxysmal atrial fibrillation (principal); I49.3 Ventricular premature depolarization; E78.5 Hyperlipidemia, unspecified; I10 Essential (primary) hypertension
CPT/HCPCS: 99214

== ENCOUNTER → 2024-02-09 08:56 | Outpatient (BNVA) | payer MEDICARE, SELFPAY | PROVIDERS: PCP Family Medicine; Visit Provider Internal Medicine | DX: I48.0 Paroxysmal atrial fibrillation (principal); R00.1 Bradycardia, unspecified; I49.1 Atrial premature depolarization; I49.3 Ventricular premature depolarization; I10 Essential (primary) hypertension; E78.5 Hyperlipidemia, unspecified; Z95.0 Presence of cardiac pacemaker | CPT/HCPCS: 99212 ==

== ENCOUNTER → 2024-04-30 23:59 | Outpatient (BNV) | payer MEDICARE, SELFPAY ==
--- NOTE | 2024-05-05 19:50 | A.OFFVIS_ITS ---
Intake Visit Reasons: Remote device check- [employer] Allergies hydrochlorothiazide Allergy (Severe, Verified 01/09/24 14:32) Unknown Penicillins [PENICILLINS] Allergy (Severe, Verified 10/05/23 04:10) DIFFICULTY BREATHING sertraline [Zoloft] Allergy (Severe, Verified 10/05/23 04:10) unk clindamycin [CLINDAMYCIN] Allergy (Unknown, Verified 10/05/23 04:10) RASH clonazepam [CLONAZEPAM] Allergy (Unknown, Verified 10/05/23 04:10) DIZZINESS, dizzy nausea lisinopril Allergy (Unknown, Verified 10/05/23 04:10) didn't feel well on med losartan Allergy (Unknown, Verified 10/05/23 04:10) didn't feel well on med metoprolol Allergy (Unknown, Verified 10/05/23 04:10) didn't feel well on med paroxetine [From PAXIL] Allergy (Unknown, Verified 10/05/23 04:10) UNKNOWN propranolol Allergy (Unknown, Verified 10/05/23 04:10) sick risedronate sodium [From ACTONEL] Allergy (Unknown, Verified 10/05/23 04:10) UNKNOWN valsartan Allergy (Unknown, Verified 10/05/23 04:10) didn't feel well on med benzalkonium chloride [From TRAVATAN] Adverse Reaction (Unknown, Verified 10/05/23 04:10) CONFUSION escitalopram [From LEXAPRO] Adverse Reaction (Unknown, Verified 10/05/23 04:10) AGITATION red yeast rice [RED YEAST RICE] Adverse Reaction (Unknown, Verified 10/05/23 04:10) STOMACH UPSET timolol [From ISTALOL] Adverse Reaction (Unknown, Verified 10/05/23 04:10) CONFUSION travoprost [From TRAVATAN] Adverse Reaction (Unknown, Verified 10/05/23 04:10) CONFUSION CHOLESTEROL MEDS Allergy (Unknown, Uncoded 05/18/23 13:20) LIVER PROBLEMS Clindamycin HCl Allergy (Unknown, Uncoded 05/18/23 13:20) can only take 150MG Diltiazem HCl ER Allergy (Unknown, Uncoded 05/18/23 13:20) didn't feel well on med [facility] Medical History (Updated 02/09/24 @ 09:25 by Matty Sawyer MD) Pacemaker (~11/2020) COVID-19 vaccine series completed Anxiety Arthritis Hx of cancer of uterus Hepatitis H/O shortness of breath PAC (premature atrial contraction) Sinus pause Junctional bradycardia Statin intolerance HLD (hyperlipidemia) Bradycardia Rheumatic aortic regurgitation HTN (hypertension) PVC (premature ventricular contraction) Surgical History (Updated 02/09/24 @ 09:07 by Sandra Beck CMA) History of kyphoplasty H/O lumpectomy History of tonsillectomy History of hysterectomy History of colonoscopy History of pacemaker (~11/23/20) History of cataract extraction Family History Father HTN (hypertension) Mother No problems noted. Social History Household Members: Spouse Housing: House Housing Other:: Resides at [facility] Are you a primary pediatric acute care unit nurse to a significant other at home: No Do you presently have visiting nurse or other home services: No Patient Tobacco Use Status: Never used Tobacco Years Smoked: > 45 yrs ago service: No Current occupational status: retired Office Procedures Cardiac Device Check Cardiac Device Check Details: Date of service- 04/30/2024 ; Battery life >9 years; normal lead parameters; AP >39%; CELL MANAGER >4%; NSVT/AF episodes. Overall normal device function. [id number] Cardiac Device Interrogation, pacemaker Procedure code (CPT) selection complete Assessment & Plan Assessment & Plan (1) Pacemaker: Onset Date: ~11/2020 Comment: (Medtronic DCPP 11/23/20) Code(s): Z95.0 - Presence of cardiac pacemaker Category: Medical (2) PAF (paroxysmal atrial fibrillation): Code(s): I48.0 - Paroxysmal atrial fibrillation Category: Medical Plan x Coding Level of Care Code Procedure Only Diagnoses Pacemaker Z95.0 PAF (paroxysmal atrial fibrillation) I48.0 CPT Codes Cardiac Device Check - Cardiac Device 12: [id number] Cardiac Device Interrogation, pacemaker ([id number])
== END ==
PROVIDERS: PCP Family Medicine; Visit Provider Internal Medicine
DX: I48.0 Paroxysmal atrial fibrillation (principal); Z95.0 Presence of cardiac pacemaker
CPT/HCPCS: 93294

== ENCOUNTER 2024-05-16 12:07 | Outpatient (AMB) | payer MEDICARE, SELFPAY ==
--- NOTE | 2024-05-16 12:26 | MHC.OFFVIS ---
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: No Accompanied by: Son Allergies hydrochlorothiazide Allergy (Severe, Verified 01/09/24 14:32) Unknown Penicillins [PENICILLINS] Allergy (Severe, Verified 10/05/23 04:10) DIFFICULTY BREATHING sertraline [Zoloft] Allergy (Severe, Verified 10/05/23 04:10) unk clindamycin [CLINDAMYCIN] Allergy (Unknown, Verified 10/05/23 04:10) RASH clonazepam [CLONAZEPAM] Allergy (Unknown, Verified 10/05/23 04:10) DIZZINESS, dizzy nausea lisinopril Allergy (Unknown, Verified 10/05/23 04:10) didn't feel well on med losartan Allergy (Unknown, Verified 10/05/23 04:10) didn't feel well on med metoprolol Allergy (Unknown, Verified 10/05/23 04:10) didn't feel well on med paroxetine [From PAXIL] Allergy (Unknown, Verified 10/05/23 04:10) UNKNOWN propranolol Allergy (Unknown, Verified 10/05/23 04:10) sick risedronate sodium [From ACTONEL] Allergy (Unknown, Verified 10/05/23 04:10) UNKNOWN valsartan Allergy (Unknown, Verified 10/05/23 04:10) didn't feel well on med benzalkonium chloride [From TRAVATAN] Adverse Reaction (Unknown, Verified 10/05/23 04:10) CONFUSION escitalopram [From LEXAPRO] Adverse Reaction (Unknown, Verified 10/05/23 04:10) AGITATION red yeast rice [RED YEAST RICE] Adverse Reaction (Unknown, Verified 10/05/23 04:10) STOMACH UPSET timolol [From ISTALOL] Adverse Reaction (Unknown, Verified 10/05/23 04:10) CONFUSION travoprost [From TRAVATAN] Adverse Reaction (Unknown, Verified 10/05/23 04:10) CONFUSION CHOLESTEROL MEDS Allergy (Unknown, Uncoded 05/18/23 13:20) LIVER PROBLEMS Clindamycin HCl Allergy (Unknown, Uncoded 05/18/23 13:20) can only take 150MG Diltiazem HCl ER Allergy (Unknown, Uncoded 05/18/23 13:20) didn't feel well on med Medication List - Last Reconciled 05/16/24 by Matty Sawyer MD apixaban (Eliquis) 5 mg PO BID calcium carbonate (Calcium 600) 1,200 mg PO DAILY cholecalciferol (vitamin D3) (Vitamin D3) 25 mcg PO DAILY irbesartan 150 mg PO BID lidocaine 5% 1 patch topical DAILY lidocaine HCl 4% 1 patch topical DAILY PRN spironolactone 12.5 mg (1/2 x 25 mg) PO DAILY verapamil ER 120 mg PO QAM HPI Comments Details: Xuan returns for follow-up regarding pacemaker as well as other cardiac issues. To recall, she was on verapamil for PVCs but was going into deisy-arrhythmias including junctional rhythm. Subsequently, she received a permanent pacemaker. Recently, she was having some palpitations and in that context she was also having atrial fibrillation seen on the remote pacemaker monitoring. Subsequently put on Eliquis. Overall, no new cardiac complaints. She states she is doing fine. No angina or in fact anything of cardiac nature. [facility] Medical History Pacemaker (~11/2020) COVID-19 vaccine series completed Anxiety Arthritis Hx of cancer of uterus Hepatitis H/O shortness of breath PAC (premature atrial contraction) Sinus pause Junctional bradycardia Statin intolerance HLD (hyperlipidemia) Bradycardia Rheumatic aortic regurgitation HTN (hypertension) PVC (premature ventricular contraction) Surgical History History of kyphoplasty H/O lumpectomy History of tonsillectomy History of hysterectomy History of colonoscopy History of pacemaker (~11/23/20) History of cataract extraction Family History Father HTN (hypertension) Mother No problems noted. Social History Household Members: Spouse Housing: House Housing Other:: Resides at [facility] Are you a primary childcare center administrator to a significant other at home: No Do you presently have visiting nurse or other home services: No Patient Tobacco Use Status: Never used Tobacco Years Smoked: > 45 yrs ago service: No Current occupational status: retired Review of Systems Const Denies chills, Denies fatigue, Denies fever(s), Denies weight gain and Denies weight loss ENT Denies dizziness Card Denies chest pain, Denies leg edema, Denies lightheadedness, Denies palpitations, Reports dyspnea, Denies dyspnea on exertion, Denies orthopnea and Denies other Resp Denies cough, Reports dyspnea and Denies dyspnea on exertion GI Denies hematochezia and Denies change in stool character Musc Denies abnormal gait, Denies muscle weakness, Denies numbness, Denies radiating pain into limb and Denies tingling Neuro Denies abnormal gait, Denies dizziness, Denies numbness and Denies tingling Endo Denies fatigue and Denies palpitations Physical Exam Vital Signs: Last Vital Signs Pulse 61 05/16/24 12:27 BP 158/58 H 05/16/24 12:27 BMI result Body Mass Index 39.2 Const General: comfortable and no acute distress Orientation/consciousness: patient oriented x3 HEENT Other: Unremarkable Head: Yes normal to inspection Neck Neck: Yes normal visual inspection Chest Chest palpation & inspection: normal inspection of the chest Resp Auscultation: clear to auscultation bilaterally Cardio Palpation: normal PMI Heart sounds: S1 normal heart sound present, S2 normal heart sound present, no gallops, no murmurs and no rubs GI Palpation (GI): Soft to palpation Back/Spine/Pelvis Other: unremarkable Skin General skin exam: no rashes or lesions noted Neuro General: patient oriented x3 Extrem General: Yes normal to inspection Psych Mental Status: mental status grossly normal Office Procedures Cardiac Device Check Cardiac Device Check Details: Pacemaker interrogated today. Dual-chamber device, programmed AAI/DDD. Battery status more than 9 years. High RV thresholds but longstanding. She does not pace much in the ventricle. Otherwise, normal lead parameters. Atrial fibrillation episodes noted but burden is very low at 0.4%. [id number] Cardiac Device Check, pacemaker dual lead Procedure code (CPT) selection complete Assessment & Plan Assessment & Plan (1) Junctional bradycardia: Code(s): R00.1 - Bradycardia, unspecified Category: Medical Plan: s/p permanent pacemaker implantation. (2) PVC (premature ventricular contraction): Code(s): I49.3 - Ventricular premature depolarization Category: Medical Plan: History of frequent PVCs. No concerning symptoms in that regard. (3) PAF (paroxysmal atrial fibrillation): Code(s): I48.0 - Paroxysmal atrial fibrillation Category: Medical Plan: Noted on pacemaker interrogation. She is on verapamil/Eliquis. We did discuss about going up on the verapamil dose but she states she will definitely gets side effects from that. She also has so many reactions to other medications and hence we decided to just monitor that for now. She has also had several reactions to beta-blockers as well. Hence not clear what we can use, possible amiodarone. (4) Essential hypertension: Code(s): I10 - Essential (primary) hypertension Category: Medical Plan: On meds including irbesartan, spironolactone, verapamil. Home blood pressures are in the 130/140s. Again reluctant to make any changes as I am not entirely clear what we can use considering her list of intolerance/allergies. (5) Other and unspecified hyperlipidemia: Code(s): E78.5 - Hyperlipidemia, unspecified Category: Medical Plan: Very high lipids. However, statin intolerant. She also tried Praluent but had numerous side effects but not sure if it is truly from the medication. Not willing to try anything. Plan Discussed with family who came for appointment. Coding Level of Care Code Est Pt Level 4 (84755) Diagnoses Junctional bradycardia R00.1 PVC (premature ventricular contraction) I49.3 PAF (paroxysmal atrial fibrillation) I48.0 Essential hypertension I10 Other and unspecified hyperlipidemia E78.5 CPT Codes Cardiac Device Check - Cardiac Device 2: [id number] Cardiac Device Check, pacemaker dual lead ([id number])
[2024-05-16 12:27] VITALS: BP 158/58; PULSE 61; BMI 39.2
== END 2024-05-16 13:37 | disposition home or self-care (01) ==
PROVIDERS: PCP Family Medicine; Visit Provider Internal Medicine
DX: R00.1 Bradycardia, unspecified (principal); I49.3 Ventricular premature depolarization; I48.0 Paroxysmal atrial fibrillation; I10 Essential (primary) hypertension; E78.5 Hyperlipidemia, unspecified
CPT/HCPCS: 93280; 99214

== ENCOUNTER → 2024-05-16 12:07 | Outpatient (BNVA) | payer MEDICARE, SELFPAY | PROVIDERS: PCP Family Medicine; Visit Provider Internal Medicine | DX: I49.3 Ventricular premature depolarization (principal); R00.1 Bradycardia, unspecified; I48.0 Paroxysmal atrial fibrillation; I10 Essential (primary) hypertension; E78.5 Hyperlipidemia, unspecified; Z45.018 Encounter for adjustment and management of other part of cardiac pacemaker | CPT/HCPCS: 93280; 99212 ==

== ENCOUNTER → 2024-05-30 12:39 | Outpatient (REF) | payer MEDICARE, SELFPAY ==
--- NOTE | 2024-05-30 12:43 | CA_ITS ---
Transthoracic Echocardiogram Patient (Last, First, Middle): Xuan Michael, Gender: Female Date of : 1940 Age: 83 Procedure Date: 05/30/2024 Procedure Type: Transthoracic Echocardiogram Location: OP Height: 154.94 cm Weight: 93.9 kg BSA: 1.92 m2 Heart Rate: 81 bpm BP: 148 / 62 mmHg Filter Tank Operator: SB Referring MD: Matty Sawyer MD Symptoms: I48.0 - Paroxysmal atrial fibrillation Study Quality: Adequate ECG Rhythm: Sinus Conclusions: - The left ventricular systolic function is normal. The calculated ejection fraction is 67% by biplane method. - There is mild aortic valve regurgitation. Findings Left Ventricle Normal left ventricular cavity size. The left ventricular systolic function is normal. The calculated ejection fraction is 67% by biplane method. There is no evidence of regional wall motion abnormalities. Evidence suggests grade I (mild) diastolic dysfunction. Focal hypertrophy of the basal septum. Right Ventricle Normal right ventricular cavity size. There is mildly decreased right ventricular systolic function. Atria Both atria are normal in size. Aortic Valve There is mild calcification of the aortic valve. There is no aortic valve stenosis. There is mild aortic valve regurgitation. Mitral Valve The mitral valve appears normal. There is no mitral valve regurgitation. There is no mitral valve stenosis. Pulmonic Valve The pulmonic valve is likely normal. Tricuspid Valve There is mild tricuspid valve regurgitation. There is no evidence of pulmonary hypertension. Great Vessels The asc aorta is normal in size. Venous The inferior vena cava is normal in size and collapses greater than 50% with inspiration. Pericardium/Pleural There is no evidence of pericardial effusion. Prior Study Comparison No significant change compared to prior study dated: 02/29/2020. Measurements 2D Linear Measurements IVSd: 0.84 0.6-0.9/0.6-1.0 cm LVIDd: 5.00 3.9-5.3/4.2-5.9 cm LVIDd Index: 2.60 2.4-3.2/2.2-3.1 cm/m2 LVIDs: 3.62 2.0-3.6 cm LVPWd: 0.87 0.7-1.1 cm LA Diam: 3.90 2.7-3.8/3.0-4.0 cm LAIDs Index: 2.03 1.5-2.3 cm/m2 LV Mass: 184.34 67-162/88-224 g LV Mass Index: 96.01 43-95/49-115 g/m2 LVOT Diam: 2.40 3.0+(-)1.3 cm 2D Systolic Function EF 4C: 70.80 >55% EF 2C: 62.10 >55% EF BiP: 66.50 >55% Mitral Valve MV Pk E: 0.59 MV PK A: 1.21 MV Decel Time: 146.00 E/A: 0.50 E'Lateral: 8.05 E'Medial: 4.90 E/E' Med: 12.00 E/E' Lat: 7.30 PHT: 43.00 MVA PHT: 5.12 Decel Lenoir: 4.01 Aortic Valve AoV Pk Erick: 1.47 AoV Mn Erick: 1.26 AoV VTI: 0.35 AoV Pk Grad: 9.00 Aov Mn Grad: 7.00 GORDON Cont.VTI: 2.47 AI Pk Erick: 4.01 AI VTI: 1.66 AI Lenoir: 2.82 AI Alias Erick: 0.37 AI RV - PISA: 17.00 ERO - PISA: 10.00 LVOT LVOT Pk Erick: 1.04 LVOT Mn Erick: 0.68 LVOT VTI: 0.19 LVOT Pk Grad: 4.00 LVOT Mn Grad: 2.00 LVOT Diam: 2.40 LVOT Area: 4.52 Diastolic Function MV Pk E: 0.59 MV Pk A: 1.21 E/A: 0.50 E'Medial: 4.90 E/E' Med: 12.00 E' Laterial: 8.05 E/E' Lat: 7.30 Right Ventricle TAPSE (mm): 14.30 TVS' Erick: 7.70 Tricuspid Valve TR Pk Erick: 2.73 TR Pk Grad: 30.00 RA Press: 3.00 RVSP: 33.00 Great Vessels Aorta Sinus of Valsalva: 3.80 2.0-3.5 cm Ao Asc: 3.60 2.1-3.4 cm Pulmonary Veins Pulm Vein S/D 1.90 Pulmonary Valve PV Pk Erick: 0.91 Peak PV Grad: 3.00 Updated in Other Vendor System with Status of Final Matty Sawyer MD electronically signed on 06/01/2024 11:19:36 AM with status of Final
== END ==
LOC: HO.CARD 12:39
PROVIDERS: PCP Family Medicine; Visit Provider Internal Medicine
DX: I48.0 Paroxysmal atrial fibrillation (principal)
CPT/HCPCS: 93306

== ENCOUNTER → 2024-05-30 12:43 | Outpatient (BNV) | payer MEDICARE, SELFPAY | PROVIDERS: PCP Family Medicine; Visit Provider Internal Medicine | DX: I35.1 Nonrheumatic aortic (valve) insufficiency (principal); I36.1 Nonrheumatic tricuspid (valve) insufficiency; I42.2 Other hypertrophic cardiomyopathy | CPT/HCPCS: 93306 ==

== ENCOUNTER → 2024-10-28 23:59 | Outpatient (BNV) | payer MEDICARE, SELFPAY ==
--- NOTE | 2024-11-01 12:52 | MHC.OFFVIS ---
Intake Visit Reasons: Remote device check- Medtr[employer] Allergies hydrochlorothiazide Allergy (Severe, Verified 01/09/24 14:32) Unknown Penicillins [PENICILLINS] Allergy (Severe, Verified 10/05/23 04:10) DIFFICULTY BREATHING sertraline [Zoloft] Allergy (Severe, Verified 10/05/23 04:10) unk clindamycin [CLINDAMYCIN] Allergy (Unknown, Verified 10/05/23 04:10) RASH clonazepam [CLONAZEPAM] Allergy (Unknown, Verified 10/05/23 04:10) DIZZINESS, dizzy nausea lisinopril Allergy (Unknown, Verified 10/05/23 04:10) didn't feel well on med losartan Allergy (Unknown, Verified 10/05/23 04:10) didn't feel well on med metoprolol Allergy (Unknown, Verified 10/05/23 04:10) didn't feel well on med paroxetine [From PAXIL] Allergy (Unknown, Verified 10/05/23 04:10) UNKNOWN propranolol Allergy (Unknown, Verified 10/05/23 04:10) sick risedronate sodium [From ACTONEL] Allergy (Unknown, Verified 10/05/23 04:10) UNKNOWN valsartan Allergy (Unknown, Verified 10/05/23 04:10) didn't feel well on med benzalkonium chloride [From TRAVATAN] Adverse Reaction (Unknown, Verified 10/05/23 04:10) CONFUSION escitalopram [From LEXAPRO] Adverse Reaction (Unknown, Verified 10/05/23 04:10) AGITATION red yeast rice [RED YEAST RICE] Adverse Reaction (Unknown, Verified 10/05/23 04:10) STOMACH UPSET timolol [From ISTALOL] Adverse Reaction (Unknown, Verified 10/05/23 04:10) CONFUSION travoprost [From TRAVATAN] Adverse Reaction (Unknown, Verified 10/05/23 04:10) CONFUSION CHOLESTEROL MEDS Allergy (Unknown, Uncoded 05/18/23 13:20) LIVER PROBLEMS Clindamycin HCl Allergy (Unknown, Uncoded 05/18/23 13:20) can only take 150MG Diltiazem HCl ER Allergy (Unknown, Uncoded 05/18/23 13:20) didn't feel well on med [facility] Medical History Pacemaker (~11/2020) COVID-19 vaccine series completed Anxiety Arthritis Hx of cancer of uterus Hepatitis H/O shortness of breath PAC (premature atrial contraction) Sinus pause Junctional bradycardia Statin intolerance HLD (hyperlipidemia) Bradycardia Rheumatic aortic regurgitation HTN (hypertension) PVC (premature ventricular contraction) Surgical History History of kyphoplasty H/O lumpectomy History of tonsillectomy History of hysterectomy History of colonoscopy History of pacemaker (~11/23/20) History of cataract extraction Family History Father HTN (hypertension) Mother No problems noted. Social History Household Members: Spouse Housing: House Housing Other:: Resides at [facility] Are you a primary wound care physician to a significant other at home: No Do you presently have visiting nurse or other home services: No Patient Tobacco Use Status: Never used Tobacco Years Smoked: > 45 yrs ago service: No Current occupational status: retired Office Procedures Cardiac Device Check Cardiac Device Check Details: Date of service- 10/28/2024 ; Battery life >9 years; chronically high RV thresholds, otherwise normal lead parameters; AP 66%; MANAGER CONFIGURATION 1.7%; no significant arrhythmias. Overall normal device function. [id number] Cardiac Device Interrogation, pacemaker Procedure code (CPT) selection complete Assessment & Plan Assessment & Plan (1) Pacemaker: Onset Date: ~11/2020 Comment: (Medtronic DCPP 11/23/20) Code(s): Z95.0 - Presence of cardiac pacemaker Category: Medical (2) Junctional bradycardia: Code(s): R00.1 - Bradycardia, unspecified Category: Medical (3) Sinus pause: Code(s): I45.5 - Other specified heart block Category: Medical Plan x Coding Level of Care Code Procedure Only Diagnoses Pacemaker Z95.0 Junctional bradycardia R00.1 Sinus pause I45.5 CPT Codes Cardiac Device Check - Cardiac Device 12: [id number] Cardiac Device Interrogation, pacemaker ([id number])
== END ==
PROVIDERS: PCP Family Medicine; Visit Provider Internal Medicine
DX: I45.5 Other specified heart block (principal); R00.1 Bradycardia, unspecified; Z95.0 Presence of cardiac pacemaker
CPT/HCPCS: 93294

== ENCOUNTER 2024-11-22 10:19 | Outpatient (AMB) | payer MEDICARE, SELFPAY ==
--- NOTE | 2024-11-22 10:22 | MHC.OFFVIS ---
Vital Signs 11/22/24 10:26 Height 5 ft 1 in Weight 205 lb 0.478 oz BMI 38.7 BP 134/66 Blood Pressure Location Lt brachial Position Sitting Pulse 60 Pulse Source Monitor Intake Visit Reasons: 6 mth f/up Logistics Support Required: No Accompanied by: Son Allergies hydrochlorothiazide Allergy (Severe, Verified 01/09/24 14:32) Unknown Penicillins [PENICILLINS] Allergy (Severe, Verified 10/05/23 04:10) DIFFICULTY BREATHING sertraline [Zoloft] Allergy (Severe, Verified 10/05/23 04:10) unk clindamycin [CLINDAMYCIN] Allergy (Unknown, Verified 10/05/23 04:10) RASH clonazepam [CLONAZEPAM] Allergy (Unknown, Verified 10/05/23 04:10) DIZZINESS, dizzy nausea lisinopril Allergy (Unknown, Verified 10/05/23 04:10) didn't feel well on med losartan Allergy (Unknown, Verified 10/05/23 04:10) didn't feel well on med metoprolol Allergy (Unknown, Verified 10/05/23 04:10) didn't feel well on med paroxetine [From PAXIL] Allergy (Unknown, Verified 10/05/23 04:10) UNKNOWN propranolol Allergy (Unknown, Verified 10/05/23 04:10) sick risedronate sodium [From ACTONEL] Allergy (Unknown, Verified 10/05/23 04:10) UNKNOWN valsartan Allergy (Unknown, Verified 10/05/23 04:10) didn't feel well on med benzalkonium chloride [From TRAVATAN] Adverse Reaction (Unknown, Verified 10/05/23 04:10) CONFUSION escitalopram [From LEXAPRO] Adverse Reaction (Unknown, Verified 10/05/23 04:10) AGITATION red yeast rice [RED YEAST RICE] Adverse Reaction (Unknown, Verified 10/05/23 04:10) STOMACH UPSET timolol [From ISTALOL] Adverse Reaction (Unknown, Verified 10/05/23 04:10) CONFUSION travoprost [From TRAVATAN] Adverse Reaction (Unknown, Verified 10/05/23 04:10) CONFUSION CHOLESTEROL MEDS Allergy (Unknown, Uncoded 05/18/23 13:20) LIVER PROBLEMS Clindamycin HCl Allergy (Unknown, Uncoded 05/18/23 13:20) can only take 150MG Diltiazem HCl ER Allergy (Unknown, Uncoded 05/18/23 13:20) didn't feel well on med Medication List - Last Reconciled 11/22/24 by Matty Sawyer MD apixaban (Eliquis) 5 mg PO BID calcium carbonate (Calcium 600) 1,200 mg PO DAILY cholecalciferol (vitamin D3) (Vitamin D3) 25 mcg PO DAILY furosemide 20 mg PO DAILY PRN irbesartan 150 mg PO BID lidocaine 5% 1 patch topical DAILY lidocaine HCl 4% 1 patch topical DAILY PRN spironolactone 12.5 mg (1/2 x 25 mg) PO DAILY verapamil ER 120 mg PO QAM HPI Comments Details: Xuan returns for follow-up regarding pacemaker as well as other cardiac issues. To recall, she was on verapamil for PVCs but was going into deisy-arrhythmias including junctional rhythm. Subsequently, she received a permanent pacemaker. Recently, she was having some palpitations and in that context she was also having atrial fibrillation seen on the remote pacemaker monitoring. Subsequently put on Eliquis. Overall, no new cardiac complaints. She states she is doing fine. No angina or in fact anything of cardiac nature. [facility] Medical History Pacemaker (~11/2020) COVID-19 vaccine series completed Anxiety Arthritis Hx of cancer of uterus Hepatitis H/O shortness of breath PAC (premature atrial contraction) Sinus pause Junctional bradycardia Statin intolerance HLD (hyperlipidemia) Bradycardia Rheumatic aortic regurgitation HTN (hypertension) PVC (premature ventricular contraction) Surgical History History of kyphoplasty H/O lumpectomy History of tonsillectomy History of hysterectomy History of colonoscopy History of pacemaker (~11/23/20) History of cataract extraction Family History Father HTN (hypertension) Mother No problems noted. Social History Household Members: Spouse Housing: House Housing Other:: Resides at [facility] Are you a primary health care specialist to a significant other at home: No Do you presently have visiting nurse or other home services: No Patient Tobacco Use Status: Never used Tobacco Years Smoked: > 45 yrs ago service: No Current occupational status: retired Review of Systems Const Denies chills, Denies fatigue, Denies fever(s), Denies frequent falls, Denies weakness, Denies weight gain and Denies weight loss ENT Denies dizziness Card Denies chest pain, Denies leg edema, Denies lightheadedness, Denies palpitations, Denies dyspnea and Denies dyspnea on exertion Resp Denies cough, Denies dyspnea and Denies dyspnea on exertion GI Denies hematochezia Musc Denies abnormal gait, Denies muscle weakness, Denies numbness, Denies radiating pain into limb and Denies tingling Neuro Denies abnormal gait, Denies dizziness, Denies frequent falls, Denies numbness, Denies tingling and Denies weakness Endo Denies fatigue and Denies palpitations Physical Exam Vital Signs: Last Vital Signs Pulse 60 11/22/24 10:26 BP 134/66 11/22/24 10:26 BMI result Body Mass Index 38.7 Const General: comfortable and no acute distress Orientation/consciousness: patient oriented x3 HEENT Other: Unremarkable Head: Yes normal to inspection Neck Neck: Yes normal visual inspection Chest Chest palpation & inspection: normal inspection of the chest Resp Auscultation: clear to auscultation bilaterally Cardio Palpation: normal PMI Heart sounds: S1 normal heart sound present, S2 normal heart sound present, no gallops, no murmurs and no rubs GI Palpation (GI): Soft to palpation Back/Spine/Pelvis Other: unremarkable Skin General skin exam: no rashes or lesions noted Neuro General: patient oriented x3 Extrem General: Yes normal to inspection Psych Mental Status: mental status grossly normal Office Procedures EKG Details: EKG with atrial paced rhythm at 60/Min; voltage criteria for LVH; [place]. [id number], Complete Assessment & Plan Assessment & Plan (1) Junctional bradycardia: Code(s): R00.1 - Bradycardia, unspecified Category: Medical Plan: s/p permanent pacemaker implantation. (2) PVC (premature ventricular contraction): Code(s): I49.3 - Ventricular premature depolarization Category: Medical Plan: History of frequent PVCs. No concerning symptoms in that regard. (3) PAF (paroxysmal atrial fibrillation): Code(s): I48.0 - Paroxysmal atrial fibrillation Category: Medical Plan: Noted on pacemaker interrogation. She is on verapamil/Eliquis. (4) Essential hypertension: Code(s): I10 - Essential (primary) hypertension Category: Medical Plan: On meds including irbesartan, spironolactone, verapamil. She has had high readings in the past but today it seems stable. She states that she gets high blood pressures any time she gets anxious and hence advised her about relaxation extra. (5) Other and unspecified hyperlipidemia: Code(s): E78.5 - Hyperlipidemia, unspecified Category: Medical Plan: Very high lipids. However, statin intolerant. She also tried Praluent but had numerous side effects but not sure if it is truly from the medication. Not willing to try anything. Plan Discussion Notes During the consultation, I reviewed the ongoing management of the patient?s essential hypertension and associated anxiety. We discussed the importance of adhering to her current medication regimen, particularly regarding managing stress-induced blood pressure elevations. I highlighted the benefits and risks of potential anxiolytic medication use, emphasizing non-pharmacologic methods to manage her anxiety. Discussion about her edema concerns led to a decision to continue elevating her legs. I reassured her about the current efficacy and safety of her treatments. Routine blood work was reviewed, confirming no recent abnormalities. A follow-up was arranged in six months for pacemaker evaluation. Discussed with son who came for appointment. Patient was informed and verbally consented to the use of an ambient scribe for clinic note documentation during this visit. Patient Instructions: - Continue taking your blood pressure medications as prescribed. - Monitor your blood pressure at home and report any significant changes. - Try to manage stress through relaxation or breathing exercises. - Keep your legs elevated to help with the edema. - Report any new symptoms or concerns, especially related to anxiety or blood pressure. - Follow up with scheduled appointments and maintain communication with healthcare providers regarding any changes in your condition. Coding Level of Care Code Est Pt Level 4 (18338) Complex EM visit Add On G2211 Diagnoses Junctional bradycardia R00.1 PVC (premature ventricular contraction) I49.3 PAF (paroxysmal atrial fibrillation) I48.0 Essential hypertension I10 Other and unspecified hyperlipidemia E78.5 CPT Codes EKG - CPT: 55777-[id number], Complete ([id number])
[2024-11-22 10:26] VITALS: BP 134/66; PULSE 60; BMI 38.7
--- OUTSIDE RECORDS SUMMARY | 2024-11-22 11:33 | XMS_ITS | Clinical Summary ---
Author Organization [facility] Facility Address [address] [place] [id number] Care Team Providers Care Development Technician Name Role Phone Kaelyn Gallagher MD Primary Care Prov ider Allergies Active Allergy Reactions Criticality Noted Date Comments Amlodipine 03/23/2021 Atorvastatin 08/03/2018 LFT abnormalities; all statins Clindamycin 10/11/2017 Clonazepam Other (see comments) 01/15/2016 Escitalopram 10/11/2017 Hydrochlorothiazide 10/11/2017 Lisinopril 03/23/2021 Monascus Purpureus Went Yeast Other (see comments) 01/15/2016 Other Other (see comments) 01/15/2016 All cholesterol medications =- attack liver Paroxetine Hcl 10/11/2017 Penicillins Other (see comments) 01/15/2016 Propranolol 10/11/2017 Risedronate 10/11/2017 Sertraline 10/11/2017 Simvastatin 03/23/2021 Timolol 10/11/2017 Travoprost 10/11/2017 Valsartan 03/23/2021 Medications verapamil ER (VERELAN) 120 MG 24 hr capsule TAKE 1 CAPSULE BY MOUTH NIGHTLY AT BEDTIME 11/09/2019 Active spironolactone (ALDACTONE) 25 MG tablet Take 25 mg by mouth in the morning. Active metoprolol tartrate 25 MG tablet Take 25 mg by mouth 1 (one) time each day Pt taking only half in the morning 05/18/2019 Active irbesartan (AVAPRO) 150 MG tablet Take 300 mg by mouth in the morning and 300 mg in the evening. Active ALPRAZolam (XANAX) 0.5 MG tablet Take 1 tablet by mouth 2 (two) times a day if needed Active acetaminophen (TYLENOL) 500 MG tablet Take 500 mg by mouth every 6 (six) hours if needed Active Multiple Vitamin (Multivitamin Adult) tablet Orally Active Calcium Carbonate-Vit D-Min (CALCIUM 1200 PO) Take by mouth Active Eliquis 5 MG tablet Take 5 mg by mouth 02/19/2024 Active lidocaine (LIDODERM) 5 % patch if needed 01/10/2024 Active Cholecalciferol (Vitamin D3) 250 MCG (43869 UT) tablet Take by mouth Active Active Problems Problem Noted Date Diagnosed Date History of right mastectomy 07/21/202202/03 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 Mammography abnormal 02/11/2022 Mass of right breast 02/11/2022 Stage 3a chronic kidney disease 01/07/2022 Renal osteodystrophy 01/07/2022 Chronic kidney disease due to hypertension 01/07 COVID-19 03/23/2021 Aortic valve sclerosis 03/21/2021 AV-junctional (milan) bradycardia 03/21/2021 Benign paroxysmal positional vertigo 03/21/2021 Depressive disorder 03/21/2021 First degree atrioventricular block 03/21/2021 Gastroesophageal reflux disease 03/21/2021 Glaucoma 03/21/2021 Migraine 03/21/2021 Morbid obesity 03/21/2021 Vitamin D deficiency 03/21/2021 Sleep apnea 03/21/2021 Pulmonary hypertension 03/21/2021 Osteoporosis 03/21/2021 Neutropenia 03/21/2021 Erythrocytosis 10/18/2018 Dizziness and giddiness 08/03/2018 Overview (12/31/2021): Last Assessment & Plan: -She reports that this has resolved. She has had no recent falls. 30-day monitor showed normal sinus rhythm with one single PVC. Occasional skipped beat noted during examination today. She reports that she does not feel these frequently. Reports that she was not feeling well this fall, and thinks this may have been due to that. -Reports that she had neurology workup with no significant findings to attribute to her dizziness. Also reports that she did have her eye exam which was normal. -She is aware to report return of symptoms. Ventricular premature complex 08/03/2018 Overview (12/31/2021): Last Assessment & Plan: -Noted 5% ventricular ectopy burden on a Holter monitor. She was previously having issues with palpitations. 30-day monitor was completed showing rare PVC. Occasional skipped beat noted upon examination today. She reports no issues with palpitations currently. She is aware to report return of symptoms. Essential hypertension 10/12/2017 Overview (12/31/2021): Last Assessment & Plan: -Blood pressure well controlled in the office today. Blood pressure log reviewed and shows relatively good control on current regimen. Goal BP from PCP office indicating goal <150/90. -She reports that she had been eating a lot more salty foods due to her recent cold, however she is just starting to get back to her regular foods. She also has not been able to exercise much due to her illness, but will be back to walking soon. -Ibuprofen is also on her medication list and she has osteoarthritis. She reports that she does not take this frequently. Recommended to not take this regularly due to her hypertension. Mixed hyperlipidemia 10/12/2017 Overview (12/31/2021): Last Assessment & Plan: -Recent lipid panel not available for review. She is not able to tolerate statins at all. Has a history of a hepatitis and reports that when being on statins in the past, her LFTs were significantly affected. She tries to work on a heart healthy diet and regular walking. Rheumatic aortic regurgitation 10/12/2017 Overview (12/31/2021): Last Assessment & Plan: -Mild mitral regurgitation on echocardiogram in March 2018. She will have a repeat echocardiogram prior to her follow-up with Dr. Vidales. She is aware to report change in exercise capacity, increased shortness of breath, dizziness prior to the next appointment. Last Assessment & Plan: -Moderate aortic regurgitation on echocardiogram in March 2018. She will have a repeat echocardiogram prior to her follow-up with Dr. Vidales. She is aware to report change in exercise capacity, increased shortness of breath, dizziness prior to the next appointment. Precordial pain 10/12/2017 Overview (12/31/2021): Last Assessment & Plan: She had some atypical chest pain for which she was seen in the ED over the weekend. She ruled out for an MS. Her EKGs were stable throughout. Her pain has resolved and has not recurred. She is not describing any exertional symptoms. I have offered to order a nuclear stress test to more conclusively rule out CAD. However, her objective data has been reassuring. She would like to hold off. She will call me if her symptoms recur and we can order the test at that time. Immunizations Immunization Administration Dates Next Due Influenza Split High Dose Pr eservative Free IM 04/12/2019,03/21/2017,03/31/2016,03/20,03/11/2013 Influenza Vaccine, Quadrival ent, Adjuvanted 04/10/2021 Influenza, Trivalent, Adjuvanted 03/18/2018 Influenza, Unspecified 03/20/2022,2019,04/11/2014,02/24,03/04/2011,04/23/2010,04/05/2008 ,04/26/2007,03/31/2006,04/12/2005,1107/2003,04/12/2003 Moderna SARS-COV-2 08/05/2020,07/15/2020 Pfizer SARS-COV-2 08/05/2020,07/15/2020 Pneumococcal Conjugate 13-Valent 04/03/2015,12/0 01/2004 Pneumococcal Polysaccharide 05/02/2021, 4 Shingrix 10/05/2021,05/27/2021 Td, Unspecified 07/16/2004,11/03/1994 Tdap 02/25/2012 Zoster 09/25/2009 Family History Relation Status Comments Father Mother Social History Tobacco Use Types Packs/Day Years Used Date Smoking Tobacco: Never Assessed Tobacco Cessation:Counseling Given: No Alcohol Use Standard Drinks/Week Comments Never 0 (1 standard drink = 0.6 oz pur e alcohol) Comments Unknown Sex and Gender Information Value Date Recorded Sex Assigned at Not on file Legal Sex Female 10:31 AM EDT Gender Identity Not on file Sexual Orientation Not on file Last Filed Vital Signs Vital Sign Reading Time Taken Comments Blood Pressure 134/62 02/22/2024 1:16 PM EDT Pulse 74 02/22/2024 1:16 PM EDT Temperature - - Respiratory Rate - - Oxygen Saturation 98% 02/22/2024 1:16 PM EDT Inhaled Oxygen Concentration - - Weight 90.4 kg (199 lb 6.4 oz) 02/22/2024 1:16 P M EDT Height - - Body Mass Index - - Plan of Treatment Health Maintenance Due Date Last Done Comments Influenza Vaccine (Season Ended) 2025 03/20/2022, 04/10/2021, 04/05/2020, Additional history exists Pneumococcal Vaccine: 50+ Years Completed 05/02/2021, 04/03/2015, 06/11/2004, Additional history exists Hepatitis B Vaccine Aged Out No longe r eligible based on patient's age to complete this topic Insurance [facility] Care Teams Development Technician Relationship Specialty Start Date End Date Kaelyn Gallagher MD [address] [place] [id number] PCP - General Family Medicine 11/20/21
== END 2024-11-22 10:51 | disposition home or self-care (01) ==
LOC: HO.HCS 10:20
PROVIDERS: PCP Family Medicine; Visit Provider Internal Medicine
DX: R00.1 Bradycardia, unspecified (principal); I49.3 Ventricular premature depolarization; I48.0 Paroxysmal atrial fibrillation; I10 Essential (primary) hypertension; E78.5 Hyperlipidemia, unspecified
CPT/HCPCS: 93010; 99214; G2211

== ENCOUNTER → 2024-11-22 10:19 | Outpatient (BNVA) | payer MEDICARE, SELFPAY | PROVIDERS: PCP Family Medicine; Visit Provider Internal Medicine | DX: I49.3 Ventricular premature depolarization (principal); I48.0 Paroxysmal atrial fibrillation; I10 Essential (primary) hypertension; R00.1 Bradycardia, unspecified; E78.5 Hyperlipidemia, unspecified; Z95.0 Presence of cardiac pacemaker; Z79.01 Long term (current) use of anticoagulants | CPT/HCPCS: 93005; 99212 ==

== ENCOUNTER → 2025-01-26 23:59 | Outpatient (BNV) | payer MEDICARE, SELFPAY ==
--- NOTE | 2025-02-11 16:34 | MHC.OFFVIS ---
Intake Visit Reasons: Remote device check- Medtronic Allergies hydrochlorothiazide Allergy (Severe, Verified 01/09/24 14:32) Unknown Penicillins (PENICILLINS) Allergy (Severe, Verified 10/05/23 04:10) DIFFICULTY BREATHING sertraline (Zoloft) Allergy (Severe, Verified 10/05/23 04:10) unk clindamycin (CLINDAMYCIN) Allergy (Unknown, Verified 10/05/23 04:10) RASH clonazepam (CLONAZEPAM) Allergy (Unknown, Verified 10/05/23 04:10) DIZZINESS, dizzy nausea lisinopril Allergy (Unknown, Verified 10/05/23 04:10) didn't feel well on med losartan Allergy (Unknown, Verified 10/05/23 04:10) didn't feel well on med metoprolol Allergy (Unknown, Verified 10/05/23 04:10) didn't feel well on med paroxetine (From PAXIL) Allergy (Unknown, Verified 10/05/23 04:10) UNKNOWN propranolol Allergy (Unknown, Verified 10/05/23 04:10) sick risedronate sodium (From ACTONEL) Allergy (Unknown, Verified 10/05/23 04:10) UNKNOWN valsartan Allergy (Unknown, Verified 10/05/23 04:10) didn't feel well on med benzalkonium chloride (From TRAVATAN) Adverse Reaction (Unknown, Verified 10/05/23 04:10) CONFUSION escitalopram (From LEXAPRO) Adverse Reaction (Unknown, Verified 10/05/23 04:10) AGITATION red yeast rice (RED YEAST RICE) Adverse Reaction (Unknown, Verified 10/05/23 04:10) STOMACH UPSET timolol (From ISTALOL) Adverse Reaction (Unknown, Verified 10/05/23 04:10) CONFUSION travoprost (From TRAVATAN) Adverse Reaction (Unknown, Verified 10/05/23 04:10) CONFUSION CHOLESTEROL MEDS Allergy (Unknown, Uncoded 05/18/23 13:20) LIVER PROBLEMS Clindamycin HCl Allergy (Unknown, Uncoded 05/18/23 13:20) can only take 150MG Diltiazem HCl ER Allergy (Unknown, Uncoded 05/18/23 13:20) didn't feel well on med [facility] Medical History Pacemaker (~11/2020) COVID-19 vaccine series completed Anxiety Arthritis Hx of cancer of uterus Hepatitis H/O shortness of breath PAC (premature atrial contraction) Sinus pause Junctional bradycardia Statin intolerance HLD (hyperlipidemia) Bradycardia Rheumatic aortic regurgitation HTN (hypertension) PVC (premature ventricular contraction) Surgical History History of kyphoplasty H/O lumpectomy History of tonsillectomy History of hysterectomy History of colonoscopy History of pacemaker (~11/23/20) History of cataract extraction Family History Father HTN (hypertension) Mother No problems noted. Social History Household Members: Spouse Housing: House Housing Other:: Resides at [facility] Are you a primary critical care nurse specialist to a significant other at home: No Do you presently have visiting nurse or other home services: No Patient Tobacco Use Status: Never used Tobacco Years Smoked: > 45 yrs ago service: No Current occupational status: retired Office Procedures Cardiac Device Check Cardiac Device Check Details: Date of service- 01/26/2025 ; Battery life >9 years; chronically high RV thresholds; AP 78.8%%; [employer] 1.7%%; no significant arrhythmias. Overall normal device function. [id number] Cardiac Device Interrogation, pacemaker Procedure code (CPT) selection complete Assessment & Plan Assessment & Plan (1) Pacemaker: Onset Date: ~11/2020 Comment: (Medtronic DCPP 11/23/20) Code(s): Z95.0 - Presence of cardiac pacemaker Category: Medical (2) PAF (paroxysmal atrial fibrillation): Code(s): I48.0 - Paroxysmal atrial fibrillation Category: Medical (3) Sinus pause: Code(s): I45.5 - Other specified heart block Category: Medical (4) Junctional bradycardia: Code(s): R00.1 - Bradycardia, unspecified Category: Medical Plan x Coding Level of Care Code Procedure Only Diagnoses Pacemaker Z95.0 PAF (paroxysmal atrial fibrillation) I48.0 Sinus pause I45.5 Junctional bradycardia R00.1 CPT Codes Cardiac Device Check - Cardiac Device 12: [id number] Cardiac Device Interrogation, pacemaker ([id number])
== END ==
PROVIDERS: PCP Family Medicine; Visit Provider Internal Medicine
DX: I48.0 Paroxysmal atrial fibrillation (principal); Z95.0 Presence of cardiac pacemaker; I45.5 Other specified heart block; R00.1 Bradycardia, unspecified
CPT/HCPCS: 93294

== ENCOUNTER → 2025-04-27 23:59 | Outpatient (BNV) | payer MEDICARE, SELFPAY ==
--- NOTE | 2025-05-07 16:01 | MHC.OFFVIS ---
Intake Visit Reasons: Remote device check- Medtronic Allergies hydrochlorothiazide Allergy (Severe, Verified 01/09/24 14:32) Unknown Penicillins (PENICILLINS) Allergy (Severe, Verified 10/05/23 04:10) DIFFICULTY BREATHING sertraline (Zoloft) Allergy (Severe, Verified 10/05/23 04:10) unk clindamycin (CLINDAMYCIN) Allergy (Unknown, Verified 10/05/23 04:10) RASH clonazepam (CLONAZEPAM) Allergy (Unknown, Verified 10/05/23 04:10) DIZZINESS, dizzy nausea lisinopril Allergy (Unknown, Verified 10/05/23 04:10) didn't feel well on med losartan Allergy (Unknown, Verified 10/05/23 04:10) didn't feel well on med metoprolol Allergy (Unknown, Verified 10/05/23 04:10) didn't feel well on med paroxetine (From PAXIL) Allergy (Unknown, Verified 10/05/23 04:10) UNKNOWN propranolol Allergy (Unknown, Verified 10/05/23 04:10) sick risedronate sodium (From ACTONEL) Allergy (Unknown, Verified 10/05/23 04:10) UNKNOWN valsartan Allergy (Unknown, Verified 10/05/23 04:10) didn't feel well on med benzalkonium chloride (From TRAVATAN) Adverse Reaction (Unknown, Verified 10/05/23 04:10) CONFUSION escitalopram (From LEXAPRO) Adverse Reaction (Unknown, Verified 10/05/23 04:10) AGITATION red yeast rice (RED YEAST RICE) Adverse Reaction (Unknown, Verified 10/05/23 04:10) STOMACH UPSET timolol (From ISTALOL) Adverse Reaction (Unknown, Verified 10/05/23 04:10) CONFUSION travoprost (From TRAVATAN) Adverse Reaction (Unknown, Verified 10/05/23 04:10) CONFUSION CHOLESTEROL MEDS Allergy (Unknown, Uncoded 05/18/23 13:20) LIVER PROBLEMS Clindamycin HCl Allergy (Unknown, Uncoded 05/18/23 13:20) can only take 150MG Diltiazem HCl ER Allergy (Unknown, Uncoded 05/18/23 13:20) didn't feel well on med [facility] Medical History Pacemaker (~11/2020) COVID-19 vaccine series completed Anxiety Arthritis Hx of cancer of uterus Hepatitis H/O shortness of breath PAC (premature atrial contraction) Sinus pause Junctional bradycardia Statin intolerance HLD (hyperlipidemia) Bradycardia Rheumatic aortic regurgitation HTN (hypertension) PVC (premature ventricular contraction) Surgical History History of kyphoplasty H/O lumpectomy History of tonsillectomy History of hysterectomy History of colonoscopy History of pacemaker (~11/23/20) History of cataract extraction Family History Father HTN (hypertension) Mother No problems noted. Social History Household Members: Spouse Housing: House Housing Other:: Resides at [facility] Are you a primary patient centered care specialist to a significant other at home: No Do you presently have visiting nurse or other home services: No Patient Tobacco Use Status: Never used Tobacco Years Smoked: > 45 yrs ago service: No Current occupational status: retired Office Procedures Cardiac Device Check Cardiac Device Check Details: Date of service- 04/27/2025 ; Battery life >8 years; chronically high RV thresholds but otherwise normal lead parameters; AP 80%; [employer] 1.8%; no significant arrhythmias. Overall normal device function. [id number] Cardiac Device Interrogation, pacemaker Procedure code (CPT) selection complete Assessment & Plan Assessment & Plan (1) Pacemaker: Onset Date: ~11/2020 Comment: (Medtronic DCPP 11/23/20) Code(s): Z95.0 - Presence of cardiac pacemaker Category: Medical (2) Bradycardia: Code(s): R00.1 - Bradycardia, unspecified Category: Medical Plan x Coding Level of Care Code Procedure Only Diagnoses Pacemaker Z95.0 Bradycardia R00.1 CPT Codes Cardiac Device Check - Cardiac Device 12: [id number] Cardiac Device Interrogation, pacemaker ([id number])
== END ==
PROVIDERS: PCP Family Medicine; Visit Provider Internal Medicine
DX: R00.1 Bradycardia, unspecified (principal); Z95.0 Presence of cardiac pacemaker
CPT/HCPCS: 93294

== ENCOUNTER 2025-05-15 13:31 | Outpatient (AMB) | payer MEDICARE, SELFPAY ==
[2025-05-15 13:52] VITALS: BP 122/62; BMI 38.7
--- NOTE | 2025-05-15 13:52 | A.OFFVIS_ITS ---
Vital Signs 05/15/25 13:52 Height 5 ft 1 in Weight 205 lb 0.478 oz BMI 38.7 BP 122/62 Blood Pressure Location Lt brachial Position Sitting Intake Visit Reasons: 6 w/medtronic Allergies hydrochlorothiazide Allergy (Severe, Verified 01/09/24 14:32) Unknown Penicillins (PENICILLINS) Allergy (Severe, Verified 10/05/23 04:10) DIFFICULTY BREATHING sertraline (Zoloft) Allergy (Severe, Verified 10/05/23 04:10) unk clindamycin (CLINDAMYCIN) Allergy (Unknown, Verified 10/05/23 04:10) RASH clonazepam (CLONAZEPAM) Allergy (Unknown, Verified 10/05/23 04:10) DIZZINESS, dizzy nausea lisinopril Allergy (Unknown, Verified 10/05/23 04:10) didn't feel well on med losartan Allergy (Unknown, Verified 10/05/23 04:10) didn't feel well on med metoprolol Allergy (Unknown, Verified 10/05/23 04:10) didn't feel well on med paroxetine (From PAXIL) Allergy (Unknown, Verified 10/05/23 04:10) UNKNOWN propranolol Allergy (Unknown, Verified 10/05/23 04:10) sick risedronate sodium (From ACTONEL) Allergy (Unknown, Verified 10/05/23 04:10) UNKNOWN valsartan Allergy (Unknown, Verified 10/05/23 04:10) didn't feel well on med benzalkonium chloride (From TRAVATAN) Adverse Reaction (Unknown, Verified 10/05/23 04:10) CONFUSION escitalopram (From LEXAPRO) Adverse Reaction (Unknown, Verified 10/05/23 04:10) AGITATION red yeast rice (RED YEAST RICE) Adverse Reaction (Unknown, Verified 10/05/23 04:10) STOMACH UPSET timolol (From ISTALOL) Adverse Reaction (Unknown, Verified 10/05/23 04:10) CONFUSION travoprost (From TRAVATAN) Adverse Reaction (Unknown, Verified 10/05/23 04:10) CONFUSION CHOLESTEROL MEDS Allergy (Unknown, Uncoded 05/18/23 13:20) LIVER PROBLEMS Clindamycin HCl Allergy (Unknown, Uncoded 05/18/23 13:20) can only take 150MG Diltiazem HCl ER Allergy (Unknown, Uncoded 05/18/23 13:20) didn't feel well on med Medication List - Last Reconciled 05/15/25 by Matty Sawyer MD apixaban (Eliquis) 5 mg PO BID calcium carbonate (Calcium 600) 1,200 mg PO DAILY cholecalciferol (vitamin D3) (Vitamin D3) 25 mcg PO DAILY furosemide 20 mg PO DAILY PRN irbesartan 150 mg PO BID lidocaine 5% 1 patch topical DAILY spironolactone 12.5 mg (1/2 x 25 mg) PO DAILY verapamil ER 120 mg PO QAM HPI Comments Details: Xuan returns for follow-up regarding pacemaker as well as other cardiac issues. To recall, she was on verapamil for PVCs but was going into deisy-arrhythmias including junctional rhythm. Subsequently, she received a permanent pacemaker. Then she was diagnosed with atrial fibrillation based on remote pacemaker monitoring. Then put on anticoagulation. Overall, various nonspecific complaints but nothing clear-cut cardiac sounding. Some sensations of shortness of breath when he gets up and not clear if she has underlying sleep apnea. However, she does not want any testing or treatment for that. No clear exertional anginal-type symptoms or anything else concerning. [facility] Medical History Pacemaker (~11/2020) COVID-19 vaccine series completed Anxiety Arthritis Hx of cancer of uterus Hepatitis H/O shortness of breath PAC (premature atrial contraction) Sinus pause Junctional bradycardia Statin intolerance HLD (hyperlipidemia) Bradycardia Rheumatic aortic regurgitation HTN (hypertension) PVC (premature ventricular contraction) Surgical History History of kyphoplasty H/O lumpectomy History of tonsillectomy History of hysterectomy History of colonoscopy History of pacemaker (~11/23/20) History of cataract extraction Family History Father HTN (hypertension) Mother No problems noted. Social History Household Members: Spouse Housing: House Housing Other:: Resides at [facility] Are you a primary career development counselor to a significant other at home: No Do you presently have visiting nurse or other home services: No Patient Tobacco Use Status: Never used Tobacco Years Smoked: > 45 yrs ago service: No Current occupational status: retired Review of Systems Const Denies weakness ENT Denies dizziness Card Denies chest pain, Denies chest pain with activity, Denies syncope, Denies rapid heart rate, Denies pedal edema, Denies edema, Denies leg edema, Denies lightheadedness, Denies palpitations, Denies dyspnea, Denies dyspnea on exertion and Denies orthopnea Resp Denies cough, Denies dyspnea and Denies dyspnea on exertion GI Denies hematochezia and Denies change in stool character Musc Denies abnormal gait, Denies muscle cramps, Denies muscle weakness, Denies numbness, Denies radiating pain into limb and Denies tingling Neuro Denies abnormal gait, Denies dizziness, Denies syncope, Denies numbness, Denies tingling and Denies weakness Endo Denies palpitations Physical Exam Vital Signs: Last Vital Signs BP 122/62 05/15/25 13:52 BMI result Body Mass Index 38.7 Const General: comfortable and no acute distress Orientation/consciousness: patient oriented x3 HEENT Other: Unremarkable Head: Yes normal to inspection Neck Neck: Yes normal visual inspection Chest Chest palpation & inspection: normal inspection of the chest Resp Auscultation: clear to auscultation bilaterally Cardio Palpation: normal PMI Heart sounds: S1 normal heart sound present, S2 normal heart sound present, no gallops, no murmurs and no rubs GI Palpation (GI): Soft to palpation Back/Spine/Pelvis Other: unremarkable Skin General skin exam: no rashes or lesions noted Neuro General: patient oriented x3 Extrem General: Yes normal to inspection Psych Mental Status: mental status grossly normal Office Procedures Cardiac Device Check Cardiac Device Check Details: Pacemaker interrogated today. Dual-chamber device, programmed AAI/DDD. Battery status more than 8 years. Atrial pacing 69%. Ventricular pacing 1.7%. Chronic currently elevated RV thresholds. No significant arrhythmias. Overall, normal device function. [id number] Cardiac Device Check, pacemaker dual lead Procedure code (CPT) selection complete Assessment & Plan Assessment & Plan (1) Junctional bradycardia: Code(s): R00.1 - Bradycardia, unspecified Category: Medical Plan: s/p permanent pacemaker implantation. (2) PVC (premature ventricular contraction): Code(s): I49.3 - Ventricular premature depolarization Category: Medical Plan: History of frequent PVCs. No concerning symptoms in that regard. (3) PAF (paroxysmal atrial fibrillation): Code(s): I48.0 - Paroxysmal atrial fibrillation Category: Medical Plan: Noted on pacemaker interrogation. She is on verapamil/Eliquis. (4) Essential hypertension: Code(s): I10 - Essential (primary) hypertension Category: Medical Plan: On meds including irbesartan, spironolactone, verapamil. Normal blood pressure today. (5) Other and unspecified hyperlipidemia: Code(s): E78.5 - Hyperlipidemia, unspecified Category: Medical Plan: Very high lipids. However, statin intolerant. She also tried Praluent but had numerous side effects but not sure if it is truly from the medication. Not willing to try anything. Plan Discussion Notes During the visit, we discussed the patient's anxiety and its management. We also reviewed her shortness of breath, which may be related to sleep apnea, and considered the possibility of further testing, although the patient expressed reluctance to undergo such testing. The pacemaker's normal function was confirmed, and we discussed the importance of monitoring any new symptoms that may arise. Patient was informed and verbally consented to the use of an ambient scribe for clinic note documentation during this visit. Patient Instructions: - Monitor for any new symptoms, especially related to breathing or heart function, and report them promptly. - Consider discussing sleep apnea testing with your primary care provider if symptoms persist. Coding Level of Care Code Est Pt Level 4 (16652) Complex EM visit Add On G2211 Diagnoses Junctional bradycardia R00.1 PVC (premature ventricular contraction) I49.3 PAF (paroxysmal atrial fibrillation) I48.0 Essential hypertension I10 Other and unspecified hyperlipidemia E78.5 CPT Codes Cardiac Device Check - Cardiac Device 2: [id number] Cardiac Device Check, pacemaker dual lead ([id number])
--- OUTSIDE RECORDS SUMMARY | 2025-05-15 15:37 | XMS_ITS | Clinical Summary ---
Author Organization [facility] Address [address] [address] Phone Care Team Providers Care Transmission Inspector Name Role Phone Chase Manuel MD Unavailable [phone] Kaelyn Gallagher MD Primary Care Prov ider Allergies Active Allergy Reactions Criticality Noted Date Comments Risedronate 10/11/2017 Alirocumab 04/07/2022 Atorvastatin 08/03/2018 LFT abnormalities; all statins Ciprofloxacin 04/07/2022 Clindamycin Hcl 10/11/2017 Clonazepam Unknown 01/15/2016 Diltiazem Hcl 04/07/2022 Peg [id number]-[id number] 10/11/2017 Hydrochlorothiazide 10/11/2017 Timolol Maleate 10/11/2017 Escitalopram Oxalate 10/11/2017 Lisinopril 03/23/2021 Losartan 04/07/2022 Metoprolol 04/07/2022 Amlodipine 03/23/2021 Other Unknown 01/15/2016 All cholesterol medications =- attack liver Paroxetine Hcl 10/11/2017 Penicillin Other (See Comments) 01/15/2016 Penicillins 10/11/2017 Propranolol 10/11/2017 Cholestyramine (With Sugar) 03/23/20 21 Red Yeast Rice Unknown 01/15/2016 Travoprost 10/11/2017 Valsartan 03/23/2021 Verapamil 04/07/2022 Simvastatin 03/23/2021 Sertraline 10/11/2017 Medications ALPRAZolam (XANAX) 0.5 MG tablet Take 1 tablet by mouth 2 (two) times a day as needed. 1/2 to 1 tablet Active aspirin 81 mg chewable tablet Take 1 tablet by mouth daily. Active irbesartan (AVAPRO) 150 MG tablet Take 300 mg by mouth daily. Half tab bid Active MULTIVITAMIN WITH MINERALS ORAL Orally Active Medication-Free Text Fish Oil 1200 MG Capsule, Si capsule Orally Once a day Active Medication-Free Text Magnesium Active Medication-Free Text Calcium 1585-0854 MG-UNIT Tablet Chewable, Si tablet Orally Once a day Active Medication-Free Text Vitamin D Active spironolactone (ALDACTONE) 25 MG tablet Take 25 mg by mouth daily. Half tab Active acetaminophen (TYLENOL) 500 MG tablet Take 500 mg by mouth every 6 (six) hours as needed for pain (specific location in comments). Active LIDOCAINE PAIN RELIEF 4 % PLEASE SEE ATTACHED FOR DETAILED DIRECTIONS 2 Active verapamiL (VERELAN) 120 MG 24 hr capsule Take 120 mg by mouth every morning. 2 Active Active Problems Patient Care Coordination No te Formatting of this note migh t be different from the original. 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 She [...] is aware to report return of symptoms. PVC's (premature ventricular contractions) 08/03 Assessment & Plan (08/03/2018 6:26 PM EST): -Noted 5% ventricular ectopy burden on a Holter monitor. She was previously having issues with palpitations. 30-day monitor was completed showing rare PVC. Occasional skipped beat noted upon examination today. She reports no issues with palpitations currently. She is aware to report return of symptoms. Precordial pain 10/12/2017 Assessment & Plan (10/12/2017 11:17 AM EDT): She had some atypical chest pain for which she was seen in the ED over the weekend. She ruled out for an [place]. Her EKGs were stable throughout. Her pain [...] can order the test at that time. 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 She will have a repeat echocardiogram prior to her follow-up with Dr. Vidales. She is aware to report change in exercise capacity, increased shortness of breath, dizziness prior to the next appointment. Assessment & Plan (10/12/2017 11:16 AM EDT): Last echo showed mild to moderate AI. We will get an echocardiogram later this year. Rheumatic mitral regurgitation 10/12/2017 Assessment & Plan (08/03/2018 1:27 PM EST): -Mild mitral regurgitation on echocardiogram in March 2018. She will have a repeat echocardiogram prior to her follow-up with Dr. Vidales. She is aware to report change in exercise capacity, increased shortness of breath, dizziness prior to the next appointment. Assessment & Plan (10/12/2017 11:15 AM EDT): She has a history of rheumatic mitral regurgitation. Last echocardiogram showed a mild MR. We will continue to monitor her echocardiograms routinely. Essential hypertension 10/12/2017 Assessment & Plan (08/03/2018 6:25 PM EST): -Blood pressure well controlled in the office [...] take this regularly due to her hypertension. Assessment & Plan (10/12/2017 11:15 AM EDT): Blood pressure today is normal. Mixed hyperlipidemia 10/12/2017 Assessment & Plan (08/03/2018 1:30 PM EST): -Recent lipid panel not available for review. She is not able to tolerate statins at all. Has a history of a hepatitis and reports that when being on statins in the past, her LFTs were significantly affected. She tries to work on a heart healthy diet and regular walking. Resolved Problems Problem Noted Date Diagnosed Date Resolved Date Breast mass, right 02/11/2022 2 Abnormal mammogram of right breast 02/11/2022 04/23/2022 Immunizations Immunization Administration Dates Next Due COVID-19 (Pre-04/27) Moderna Vaccine, mRNA, PF 08/05/2020,07/15/2020 COVID-19 (Pre) Pfizer Vaccine, mRNA, PF 08/05/2020,07/15/2020 INFLUENZA, SPLIT VIRUS, TRIV ALENT W/ PRESERVATIVE IM 04/11/2014,02/25/2012,03/04/2011,04/23 Influenza High-Dose Quadriva lent Preservative Free IM 03/20/2022,04/05/2020 Influenza High-Dose Trivalen t Preservative Free IM 04/12/2019,03/21/2017,03/31/2016,03/20,03/11/2013 Influenza Quadrivalent Adjuv anted Preservative Free IM 04/10/2021 Influenza Trivalent Adjuvant ed Preservative free IM 03/18/2018 Influenza, Unspecified Formulation 04/05,04/26/2007,03/31/2006,04/12,05/06/2004,04/12/2003 Pneumococcal conjugate PCV13 04/03/2015,06/11/20 04 Pneumococcal polysaccharide PPSV23 05/02/2021, Td, unspecified formulation 07/16/2004, 5 Tdap 02/25/2012 Zoster live 09/25/2009 Zoster recombinant 10/05/2021,05/27/2021 Family History Medical History Relation Comments Cancer Father CV disease Maternal Grandfather Relation Status Comments Father Maternal Grandfather Social History Tobacco Use Types Packs/Day Years Used Date Smoking Tobacco: Former Cigarettes 0.3 15 Smokeless Tobacco: Never Tobacco Cessation:Counseling Given: Not Answered Alcohol Use Standard Drinks/Week Comments Yes 1 (1 standard drink = 0.6 oz pur e alcohol) once a week Education Answer Date Recorded Are you interested in more education? Not on denise e 10/31/2022 Are you concerned about learning? Not on file 10/31/2022 No 10/31/2022 No 10/31/2022 Digital Access Answer Date Recorded No 11/29/2022 No 11/29/2022 Reliable internet access at home? Not on file 11/29/2022 Device with a working camera? Not on file Intimate Partner Violence Answer Date R ecorded Are you denied basic needs s uch as food, clothing, or medical care? No 11/05/2023 In the past 12 months have y ou been in a relationship with a person who hurts, threatens, or tries to control you? No 11/05/2023 Are you denied basic needs s uch as food, clothing, or medical care? No 11/05/2023 In the past 12 months have y ou been in a relationship with a person who hurts, threatens, or tries to control you? No 11/05/2023 Comments No Sex and Gender Information Value Date Recorded Sex Assigned at Female 10/11/2017 9:57 AM EDT Legal Sex Female 10:13 PM EDT Gender Identity Female 10/11/2017 9:57 AM EDT Sexual Orientation Not on file Last Filed Vital Signs Vital Sign Reading Time Taken Comments Blood Pressure 197/65 11/05/2023 3:43 PM EDT Pulse 75 11/05/2023 3:53 PM EDT Temperature 36.1 C (97 F) 11/05/2023 12:40 PM EDT Respiratory Rate 15 11/05/2023 3:53 PM EDT Oxygen Saturation 95% 11/05/2023 3:53 PM EDT Inhaled Oxygen Concentration - - Weight 90.7 kg (200 lb) 10/28/2023 1:28 PM EDT Height 154.9 cm (5' 1 ) 10/28/2023 1:28 PM EDT Body Mass Index 37.79 10/28/2023 1:28 PM EDT Plan of Treatment Upcoming Encounters Date Type Department Care Team (Late st Contact Info) Description 02/10/2025 Procedure Pass [address] [address] 02/06/2026 12:45 PM EDT Appointment [address] [address] Kaelyn Gallagher MD [address] [place] [address] [email or web address] Health Maintenance Due Date Last Done Comments DEPRESSION SCREENING 1950 OSTEOPOROSIS SCREENING INITIAL (ONE-TIME) 2003 RSV VACCINE (1 - 1-dose 75+ series) 2013 CREATININE LEVEL 06/23/2020 06/23/2019, , 04/29/2018, Additional history exists POTASSIUM LEVEL 06/23/2020 06/23/2019, 05/06, 03/25/2018, Additional history exists Adult Td,Tdap Booster 02/24/2022 02/25/2012 , 07/16/2004, 11/03/1994 INFLUENZA VACCINE (#1) 2025 , 04/10/2021, 04/05/2020, Additional history exists COVID-19 VACCINE ( season) 2025 11/13/2021, 04/24/2021, 08/05/2020, Additional history exists PNEUMOCOCCAL VACCINES (50+ years) Completed 05/02/2021, 04/03/2015, 06/11/2004, Additional history exists ZOSTER VACCINES Completed 10/05/2021, 05/07, 09/25/2009 HEPATITIS A VACCINES Aged Out No long er eligible based on patient's age to complete this topic HIB VACCINES Aged Out No longer eligi ble based on patient's age to complete this topic MENINGOCOCCAL VACCINES (ACWY) Aged Out No longer eligible based on patient's age to complete this topic MENINGOCOCCAL VACCINES (B) Aged Out N o longer eligible based on patient's age to complete this topic Medical Devices Implanted Type Area Allergy And Immunology Specialist Device Identifier Shelf Expiration Date Model / Serial / Lot Kit Cement Bone Kyphon Xpede Polymethylmethacrylate Mixer - [id number] Implanted:Qty: 1 on 11/05/2023 by Kd Lipscomb MD at [facility] Bone Cement [employer] [id number] 04/15/2026 [id number] / / [id number] Description:Bone Cement REF= [id number] Use By= 2026-06-04 Lot= [id number] 4.8 total Lens Lens Pacemaker Pacemaker Marker Ultraclip 17ga 10cm Tissue Dual Trigger Breast Ti [place] Shape Bx/5ea - [id number] Implanted:Qty: 1 on 03/12/2022 at [facility] Right: Breast CR [employer] [id number] / / Procedures Procedure Name Priority Date/Time Associated Diagnosis Comments BASIC METABOLIC PANEL (BMP) Routine 06/23/2019 11:48 AM EST Benign essential hypertension from Last 3 Months or Most Recently Relevant to Health Maintenance Results * (ABNORMAL) Basic metabolic panel (06/23/2019 11:48 AM EST) SODIUM 139 133 - 146 mmol/L [facility] CHLORIDE 98 96 - 108 mmol/L [facility] POTASSIUM 4.1 3.3 - 5.1 mmol/L [facility] CO2 24 21 - 35 mmol/L [facility] BUN 13 6 - 19 mg/dL [facility] CREATININE 0.60 0.5 - 1.5 mg/dL [facility] GLUCOSE 126(H) 70 - 99 mg/dL [facility] CALCIUM 8.7 8.4 - 10.3 mg/dL [facility] EGFR 85 >59 mL/min/1.7 3m2 [facility] Comment:If patient is black, multiply result by 1.159. Estimated glomerular filtration rate calculated using the CKD-EPI equation. ANION GAP 21(H) 10 - 20 mmol/L [facility] Blood 06/23/2019 11:4 8 AM EST 06/23/2019 11:50 AM EST Kiara [facility] BLOOD BKR ORDERABLES F inal Result [facility] [address] [place], [place] [phone] from Last 3 Months or Most Recently Relevant to Health Maintenance Insurance [employer] H[employer] REPL[employer]EMENT [employer] [place]AC[employer] Member Subscriber Plan / Payer (Ef fective 2020-Present) Name:Xuan Meza Relation to Subscriber:Self Name:XUAN MEZA Payer ID:Not on file Type:Medicare Address: [place] [id number] [employer] REPLACEMENT Advance Directives For more information, please contact: [phone] (9AM - 5PM [facility], Thursday-Thursday) Documents on File Type Date Recorded Patient [employer] Professor Expl anation Healthcare Proxy 10/18/2018 10/18/2018 [facility]ARE PROXY FORM MOLST 10/18/2018 10/18/2018 [facility] M OLST FORM * Full Code (Latest Code Status on File) Date Activated Date Inactivated Comments 04/09/2022 9:55 AM Question Answer Comments Code Status Confirmed With: Patient Care Teams Transmission Inspector Relationship Specialty Start Date End Date Kaelyn Gallagher MD [address] [place] [address] [email or web address] PCP - General Family Medicine 11/02/23 Chase Manuel MD [address] [id number] [email or web address] Primary Oncologist Medical Oncology 04/14/22 Additional Source Comments The information contained in this document represents components of the legal health record. It is not the complete legal health record.[facility]
--- OUTSIDE RECORDS SUMMARY | 2025-05-15 15:37 | XMS_ITS | Encounter Summary ---
Author Organization [facility] Address [address] [facility] [address] [place] [address] Phone Care Team Providers Care Singe Machine Operator Name Role Phone Manfred Miller MD Primary Care Provider [phone] Chase Manuel MD Unavailable [phone] Kaelyn Gallagher MD Primary Care Prov ider Kaelyn Gallagher MD Primary Care Prov ider Encounter Details Date Type Department Care Team (Late st Contact Info) Description 04/08/2018 Procedure Pass [address] [address] Social History Tobacco Use Types Packs/Day Years Used Date Smoking Tobacco: Former Smokeless Tobacco: Never Comments Unknown Sex and Gender Information Value Date Recorded Sex Assigned at Female 10/11/2017 9:57 AM EDT Legal Sex Female 10:13 PM EDT Gender Identity Female 10/11/2017 9:57 AM EDT Sexual Orientation Not on file documented as of this encounter Plan of Treatment Upcoming Encounters Date Type Department Care Team (Late st Contact Info) Description 02/10/2025 Procedure Pass [address] [address] 02/06/2026 12:45 PM EDT Appointment [address] [address] Kaelyn Gallagher MD [address] [place] [address] [email or web address] documented as of this encounter Visit Diagnoses Not on filedocumented in this encounter Additional Health Concerns Infection Onset Date Last Indicated Resolved Time COVID-19 03/19/2021 03/19/2021 04/09/2021 1:24 AM EDT documented as of this encounter Care Teams Singe Machine Operator Relationship Specialty Start Date End Date Manfred Miller MD PCP - General 04/23/17 04/22/22 Kaelyn Gallagher MD [address] [place] [address] PCP - General Family Medicine 04/23/22 4 Kaelyn Gallagher MD [address] [place] [address] PCP - General Family Medicine 11/02/23 Chase Manuel MD [address] [place] [address] [email or web address] Primary Oncologist Medical Oncology 04/14/22 documented as of this encounter Additional Source Comments The information contained in this document represents components of the legal health record. It is not the complete legal health record.[facility]
--- OUTSIDE RECORDS SUMMARY | 2025-05-15 15:37 | XMS_ITS | Encounter Summary ---
Author Organization [facility] Address [address] [facility] [address] [place] [address] Phone Care Team Providers Care Risk Management Manager Name Role Phone Chase Manuel MD Unavailable [phone] Kaelyn Gallagher MD Primary Care Prov ider Encounter Details Date Type Department Care Team (Late st Contact Info) Description 07/14/2024 Procedure Pass [facility], [address] [address] Social History Tobacco Use Types Packs/Day Years Used Date Smoking Tobacco: Former Cigarettes 0.3 15 Smokeless Tobacco: Never Alcohol Use Standard Drinks/Week Comments Yes 1 [...] st Contact Info) Description 02/10/2025 Procedure Pass [address] [address] 02/06/2026 12:45 PM EDT Appointment [address] [address] Kaelyn Gallagher MD [address] [place] [address] [email or web address] documented as of this encounter Visit Diagnoses Not on filedocumented in this encounter Care Teams Risk Management Manager Relationship Specialty Start Date End Date Kaelyn Gallagher MD [address] [place] [address] PCP - General Family Medicine 11/02/23 Chase Manuel MD [address] [place] [address] Primary Oncologist Medical Oncology 04/14/22 documented as of this encounter Additional Source Comments The information contained in this document represents components of the legal health record. It is not the complete legal health record.[facility]
--- OUTSIDE RECORDS SUMMARY | 2025-05-15 15:37 | XMS_ITS | Encounter Summary ---
Author Organization [facility] Address [address] [facility] [address] [place] [address] Phone Care Team Providers Care Risk Modeler Name Role Phone Chase Manuel MD Unavailable [phone] Kaelyn Gallagher MD Primary Care Prov ider Encounter Details Date Type Department Care Team (Late st Contact Info) Description 07/14/2024 Procedure Pass [facility], [facility] [address] [place] [address] Social History Tobacco Use Types Packs/Day Years [...] st Contact Info) Description 02/10/2025 Procedure Pass [address] [address] 02/06/2026 12:45 PM EDT Appointment [address] [address] Kaelyn Gallagher MD [address] [place] [address] [email or web address] documented as of this encounter Visit Diagnoses Not on filedocumented in this encounter Care Teams Risk Modeler Relationship Specialty Start Date End Date Kaelyn Gallagher MD [address] [place] [address] PCP - General Family Medicine 11/02/23 Chase Manuel MD [address] [place] [address] Primary Oncologist Medical Oncology 04/14/22 documented as of this encounter Additional Source Comments The information contained in this document represents components of the legal health record. It is not the complete legal health record.[facility]
--- OUTSIDE RECORDS SUMMARY | 2025-05-15 15:37 | XMS_ITS | Encounter Summary ---
Author Organization [facility] Address [address] [facility] [address] [place] [address] Phone Care Team Providers Care Burial Vault Maker Name Role Phone Manfred Miller MD Primary Care Provider [phone] Chase Manuel MD Unavailable [phone] Kaelyn Gallagher MD Primary Care Prov ider Kaelyn Gallagher MD Primary Care Prov ider Encounter Details Date Type Department Care Team (Latest Contact Info) Description 2017 Transcribe Orders [facility] [address] [facility] 3rd Floor, [address] [place] [address] Isidoro Medeiros MD [address] [place] [address] Essential hypertension (Primary Dx) Social History Tobacco Use Types Packs/Day Years Used Date Smoking Tobacco: Never Assessed Comments Unknown Sex and Gender Information Value Date Recorded Sex Assigned at Female 10/11/2017 9:57 AM EDT Legal Sex Female 10:13 PM EDT Gender Identity Female 10/11/2017 9:57 AM EDT Sexual Orientation Not on file documented as of this encounter Plan of Treatment Upcoming Encounters Date Type Department Care Team (Late st Contact Info) Description 02/10/2025 Procedure Pass [address] [address] 02/06/2026 12:45 PM EDT Appointment [address] [place] [address] Kaelyn Gallagher MD [address] [place] [address] [email or web address] documented as of this encounter Results * TTE COMPREHENSIVE (03/15/2018 10:53 AM EDT) Anatomical Region Laterality Modality Heart Ultrasound Narrative 03/18/2018 4:50 PM EDT See scanned document. us Isidoro Medeiros MD CV ECHO ORDERABLES Final Resul t documented in this encounter Visit Diagnoses Diagnosis Essential hypertension- Primary Unspecified essential hypertension Essential hypertension Unspecified essential hypertension documented in this encounter Additional Health Concerns Infection Onset Date Last Indicated Resolved Time COVID-19 03/19/2021 03/19/2021 04/09/2021 1:24 AM EDT documented as of this encounter Care Teams Burial Vault Maker Relationship Specialty Start Date End Date Manfred Miller MD [email or web address] PCP - General 04/23/17 04/22/22 Kaelyn Gallagher MD [address] [place] [address] PCP - General Family Medicine 04/23/22 4 Kaelyn Gallagher MD [address] [place] [address] PCP - General Family Medicine 11/02/23 Chase Manuel MD [address] [place] [address] [email or web address] Primary Oncologist Medical Oncology 04/14/22 documented as of this encounter Additional Source Comments The information contained in this document represents components of the legal health record. It is not the complete legal health record.[facility]
--- OUTSIDE RECORDS SUMMARY | 2025-05-15 15:37 | XMS_ITS ---
Author Organization [facility] Address [address] [facility] [address] [place] [address] Phone Care Team Providers Care Head Of Marketing Adometry Name Role Phone Chase Manuel MD Unavailable [phone] Kaelyn Gallagher MD Primary Care Prov ider Active Problems Patient Care Coordination No te [...] the weekend. She ruled out for an [place]. Her EKGs were stable throughout. Her pain [...] a heart healthy diet and regular walking. Current Treatment and Therapy Plans No current plan information found. Past Treatment and Therapy Plans Lifetime Dose Tracking * Chemical Lifetime Dose Automatic Entry Manual Entr y Invasive Cardiology Radiatio n Exposure 577 mGy 0 mGy 577 mGy 2. DAP 2,627.98 uGy-m2 0 uGy-m2 2,627.98 uGy -m2 Resolved Problems Problem Noted Date Diagnosed Date Resolved Date Breast mass, right 02/11/2022 Abnormal mammogram of right breast 02/11/2022 04/23/2022
--- OUTSIDE RECORDS SUMMARY | 2025-05-15 15:37 | XMS_ITS | Encounter Summary ---
Author Organization [facility] Address [address] [facility] [address] [facility] [address] [place] [address] Phone Care Team Providers Care School Laboratory Technician Name Role Phone Manfred Miller MD Primary Care Provider Chase Manuel MD Unavailable [phone] Kaelyn Gallagher MD Primary Care Prov ider Kaelyn Gallagher MD Primary Care Prov ider Reason for Referral * Outpatient Procedure - Closed Specialty Diagnoses / Procedures Referred By Contac t Referred To Contact Radiology Diagnoses Mucinous carcinoma of breast, right Procedures Mammogram Needle Localization (Right) Lily Moore MD Phone: tel: fax: mailto:[email or web address] Referral ID Status Reason Start Date Expiration Date Visits Re quested Visits Authorized [id number] Closed 03/13/2022 03/13/2023 1 1 Encounter Details Date Type Department Care Team (Late st Contact Info) Description 03/13/2022 Prep for Surgery [facility] General Surgical Care [address] [place] [address] Lily Moore MD [address] [facility], 2nd [place] [address] [email or web address] Mucinous carcinoma of breast, right (Primary Dx) Social History Tobacco Use Types Packs/Day Years Used Date Smoking Tobacco: Former Smokeless Tobacco: Never Alcohol Use Standard Drinks/Week Comments Yes 1 (1 standard drink = 0.6 oz pur e alcohol) once a week Comments Unknown Sex and Gender Information Value Date Recorded Sex Assigned at Female 10/11/2017 9:57 AM EDT Legal Sex Female 10:13 PM EDT Gender Identity Female 10/11/2017 9:57 AM EDT Sexual Orientation Not on file documented as of this encounter Plan of Treatment Upcoming Encounters Date Type Department Care Team (Late st Contact Info) Description 02/10/2025 Procedure Pass [address] [address] 02/06/2026 12:45 PM EDT Appointment [address] [address] Kaelyn Gallagher MD [address] [place] [phone] [email or web address] documented as of this encounter Results * Mammogram Needle Localization (Right) (03/31/2022 9:58 AM EDT) Anatomical Region Laterality Modality Breast Right, Breast Bilateral Right M ammography 03/31/2022 12:4 1 PM EDT Impressions 03/31/2022 12:48 PM EDT Right breast tag localization placement as above. Narrative 03/31/2022 12:48 PM EDT COMPARISON: 03/12/2022. RIGHT BREAST WIREFREE TAG LOCALIZATION TAG FINDINGS: Informed consent was obtained. A site marking was performed on the patient's right breast with her permission. Mammography was utilized for localization of the right breast mass and biopsy marker. Skin was cleansed with chlorhexidine and anesthetized lidocaine. A needle was inserted with the tip just at the level of the biopsy marker. The tag was then deployed and needle removed. The tag is 8 mm posteromedial and slightly inferior to the biopsy marker. Patient was without complaints. Needle Gauge/length: 12g x 5cm Estimated Blood Loss: 0 Lidocaine: 1% 10cc Tag# : [id number] us Lily Moore MD IMG BI IRP GUIDED BREAST P CHON Final Result documented in this encounter Visit Diagnoses Diagnosis Mucinous carcinoma of breast, right- Primary Mucinous carcinoma of breast, right documented in this encounter Care Teams School Laboratory Technician Relationship Specialty Start Date End Date Manfred Miller MD PCP - General 04/23/17 04/22/22 Kaelyn Gallagher MD [address] [place] [address] PCP - General Family Medicine 04/23/22 4 Kaelyn Gallagher MD [address] [place] [address] PCP - General Family Medicine 11/02/23 Chase Manuel MD [address] [place] [address] Primary Oncologist Medical Oncology 04/14/22 documented as of this encounter Additional Source Comments The information contained in this document represents components of the legal health record. It is not the complete legal health record.[facility]
--- OUTSIDE RECORDS SUMMARY | 2025-05-15 15:37 | XMS_ITS | Encounter Summary ---
Author Organization [facility] Address [address] [place] [address] Phone Care Team Providers Care Benzene Still Utility Operator Name Role Phone Manfred Miller MD Primary Care Provider [phone] Chase Manuel MD Unavailable [phone] Kaelyn Gallagher MD Primary Care Prov ider Kaelyn Gallagher MD Primary Care Prov ider Reason for Referral * MRI/CAT Scan - Closed Specialty Diagnoses / Procedures Referred By Contac t Referred To Contact Radiology Diagnoses Transient cerebral ischemia, unspecified type Procedures MRI Brain Jani Danielle MD, PhD Phone: tel: fax: mailto:[email or web address] Referral ID Status Reason Start Date Expiration Date Visits Re quested Visits Authorized [id number] Closed 04/08/2018 06/07/2018 1 1 Encounter Details Date Type Department Care Team (Late st Contact Info) Description 04/08/2018 Ancillary Orders Virtual Department [address] [place] [address] Jani Danielle MD, PhD [address] [place] [address] [email or web address] Transient cerebral ischemia, unspecified type Social History Tobacco Use Types Packs/Day Years [...] st Contact Info) Description 02/10/2025 Procedure Pass [address] [address] 02/06/2026 12:45 PM EDT Appointment [address] [address] Kaelyn Gallagher MD [address] [place] [address] [email or web address] documented as of this encounter Results * MRI BRAIN WITHOUT CONTRAST (04/19/2018 3:07 PM EDT) Anatomical Region Laterality Modality Head Magnetic Resonan ce 04/19/2018 3:46 PM EDT Impressions 04/19/2018 4:41 PM EDT No intracranial hemorrhage, mass, or infarction detected. Non-specific white matter changes, most prominent in subcortical regions and somewhat more prominent in the frontal lobes, typically associated with small vessel disease. POS - [id number] Edited by: Daylin Blas on 04/19/2018 3:53 PM Narrative 04/19/2018 4:41 PM EDT HISTORY: Visual changes. TIA. COMPARISON: None TECHNIQUE: Exam performed on a 1.5 Bárbara high-field MRI scanner. Axial T1, T2, T2*, T2 FLAIR and diffusion-weighted imaging with ADC map, sagittal T1 sequences were obtained. FINDINGS: No areas of restricted diffusion. No abnormal intra or extra-axial blood or fluid collection, mass, or mass effect is identified. There are multiple areas of abnormal white matter signal in the supratentorial white matter tracts, particularly in the frontal lobes, typically associated with small vessel disease. Scattered other areas present as well. No prominent infratentorial component. No prominent volume loss with minor prominence of sulci and ventricles. Pituitary not enlarged. Cerebellar tonsils not ectopic. Hyperostosis frontalis interna incidentally noted. No gross orbital lesion. Left vertebral dominant. There appear to be preserved flow voids in the major intracranial arteries and veins. No fluid in paranasal sinuses. Procedure Note Beryl Mcallister MD - 04/19/2018 HISTORY: Visual changes. TIA. COMPARISON: None TECHNIQUE: Exam performed on a 1.5 Bárbara high-field MRI scanner. AxialT1, T2, T2*, T2 FLAIR and diffusion-weighted imaging with ADC map,sagittal T1 sequences were obtained. FINDINGS: No areas of restricted diffusion. No abnormal intra or extra-axial bloodor fluid collection, mass, or mass effect is identified. There aremultiple areas of abnormal white matter signal in the supratentorial whitematter tracts, particularly in the frontal lobes, typically associatedwith small vessel disease. Scattered other areas present as well. Noprominent infratentorial component. No prominent volume loss with minorprominence of sulci and ventricles. Pituitary not enlarged. Cerebellartonsils not ectopic. Hyperostosis frontalis interna incidentally noted. Nogross orbital lesion. Left vertebral dominant. There appear to bepreserved flow voids in the major intracranial arteries and veins. Nofluid in paranasal sinuses. IMPRESSION: No intracranial hemorrhage, mass, or infarction detected. Non-specificwhite matter changes, most prominent in subcortical regions and somewhatmore prominent in the frontal lobes, typically associated with smallvessel disease. POS - [id number] Edited by: Daylin Blas on 04/19/2018 3:53 PM us Jani Danielle MD, PhD IMG MR HEAD/NECK Final Result documented in this encounter Visit Diagnoses Diagnosis Transient cerebral ischemia, unspecified type Transient cerebral ischemia, unspecified type documented in this encounter Additional Health Concerns Infection Onset Date Last Indicated Resolved Time COVID-19 03/19/2021 03/19/2021 04/09/2021 1:24 AM EDT documented as of this encounter Care Teams Benzene Still Utility Operator Relationship Specialty Start Date End Date Manfred Miller MD PCP - General 04/23/17 04/22/22 Kaelyn Gallagher MD [address] [place] [address] PCP - General Family Medicine 04/23/22 Kaelyn Gallagher MD [address] [place] [address] PCP - General Family Medicine 11/02/23 Chase Manuel MD [address] [place] [address] [email or web address] Primary Oncologist Medical Oncology 04/14/22 documented as of this encounter Additional Source Comments The information contained in this document represents components of the legal health record. It is not the complete legal health record.[facility]
--- OUTSIDE RECORDS SUMMARY | 2025-05-15 15:38 | XMS_ITS | Encounter Summary ---
Author Organization [facility] Address [address] [address] Phone Care Team Providers Care Foreign Exchange Dealer Name Role Phone Manfred Miller MD Primary Care Provider [phone] Chase Manuel MD Unavailable [phone] Kaelyn Gallagher MD Primary Care Prov ider Kaelyn Gallagher MD Primary Care Prov ider Reason for Referral * Physical Therapy (Routine) - Closed Specialty Diagnoses / Procedures Referred By Keely nava Referred To Contact Physical Therapy Diagnoses Encounter for rehabilitation Destiny Sierra NP [address] [place] [address] Phone: tel: fax: mailto:[email or web address] [email or web address] [address] [place] [address] Phone: tel: Referral ID Status Reason Start Date Expiration Date Visits Re quested Visits Authorized [id number] Closed 04/12/2019 07/05/2019 25 25 Encounter Details Date Type Department Care Team (Latest Contact Info) Description 04/12/2019 Transcribe Orders [facility] [address] [place] [address] Destiny Sierra NP [address] [place] [address] [email or web address] Encounter for rehabilitation (Primary Dx) Social History Tobacco Use Types [...] st Contact Info) Description 02/10/2025 Procedure Pass [address] [address] 02/06/2026 12:45 PM EDT Appointment [address] [address] Kaelyn Gallagher MD [address] [place] [address] [email or web address] Scheduled Referrals Name Type Priority Associated Diagnoses Orde r Schedule Ambulatory referral to [facility] Physical Therapy Outpatient Referral Routine Encounter for rehabilitation Ordered: 04/12/2019 documented as of this encounter Visit Diagnoses Diagnosis Encounter for rehabilitation- Primary documented in this encounter Additional Health Concerns Infection Onset Date Last Indicated Resolved Time COVID-19 03/19/2021 03/19/2021 04/09/2021 1:24 AM EDT documented as of this encounter Care Teams Foreign Exchange Dealer Relationship Specialty Start Date End Date Manfred Miller MD [email or web address] PCP - General 04/23/17 04/22/22 Kaelyn Gallagher MD [address] [place] [address] PCP - General Family Medicine 04/23/22 Kaelyn Gallagher MD [address] [place] [address] PCP - General Family Medicine 11/02/23 Chase Manuel MD [address] [place] [address] [email or web address] Primary Oncologist Medical Oncology 04/14/22 documented as of this encounter Additional Source Comments The information contained in this document represents components of the legal health record. It is not the complete legal health record.[facility]
--- OUTSIDE RECORDS SUMMARY | 2025-05-15 15:38 | XMS_ITS | Clinical Summary ---
Author Organization [facility] Address [address] [place] [address] Care Team Providers Care Asset Coordinator Name Role Phone Kaelyn Gallagher MD Primary [...] 01/10/2024 Active Cholecalciferol (Vitamin D3) 250 MCG (89319 UT) tablet Take by mouth Active Active [...] the weekend. She ruled out for an NM. Her EKGs were stable throughout. Her pain [...] Due Date Last Done Comments Influenza Vaccine (#1) 2025 , 04/10/2021, 04/05/2020, Additional history exists Pneumococcal Vaccine: 50+ Years Completed 05/02/2021, 04/03/2015, 06/11/2004, Additional history exists Hepatitis B Vaccine Aged Out No longe r eligible based on patient's age to complete this topic [place] [address] [facility] Care Teams Asset Coordinator Relationship Specialty Start Date End Date Kaelyn Gallagher MD [address] [place] [address] PCP - General Family Medicine 11/20/21
--- OUTSIDE RECORDS SUMMARY | 2025-05-15 15:38 | XMS_ITS | Encounter Summary ---
Author Organization [facility] Address [address] [facility] [address] [place] [address] Phone Care Team Providers Care Suture Winder Hand Name Role Phone Chase Manuel MD Unavailable [phone] Kaelyn Gallagher MD Primary Care Prov ider Kaelyn Gallagher MD Primary Care Prov ider Encounter Details Date Type Department Care Team (Late st Contact Info) Description 05/12/2023 Procedure Pass [facility], [facility] [address] [place] [address] Social History Tobacco Use Types Packs/Day Years [...] with a working camera? Not on file Comments No Sex and Gender Information Value Date Recorded Sex Assigned at Female 10/11/2017 9:57 AM EDT Legal Sex Female 10:13 PM EDT Gender Identity Female 10/11/2017 9:57 AM EDT Sexual Orientation Not on file documented as of this encounter Plan of Treatment Upcoming Encounters Date Type Department Care Team (Late st Contact Info) Description 02/10/2025 Procedure Pass [address] [address] 02/06/2026 12:45 PM EDT Appointment [address] [address] Kaelyn Gallagher MD [address] [place] [phone] [email or web address] documented as of this encounter Visit Diagnoses Not on filedocumented in this encounter Care Teams Suture Winder Hand Relationship Specialty Start Date End Date Kaelyn Gallagher MD [address] [place] [address] PCP - General Family Medicine 04/23/22 4 Kaelyn Gallagher MD [address] [place] [address] PCP - General Family Medicine 11/02/23 Chase Manuel MD [address] [place] [address] [email or web address] Primary Oncologist Medical Oncology 04/14/22 documented as of this encounter Additional Source Comments The information contained in this document represents components of the legal health record. It is not the complete legal health record.[facility]
--- OUTSIDE RECORDS SUMMARY | 2025-05-15 15:38 | XMS_ITS | Encounter Summary ---
Author Organization [facility] Address [address] [facility] [address] [place] [address] Phone Care Team Providers Care Scratcher Tender Name Role Phone Chase Manuel MD Unavailable [phone] Kaelyn Gallagher MD Primary Care Prov ider Kaelyn Gallagher MD Primary Care Prov ider Encounter Details Date Type Department Care Team (Late st Contact Info) Description 05/12/2023 Procedure Pass [facility], [facility] [address] [place] [address] Social History Tobacco Use Types Packs/Day Years [...] st Contact Info) Description 02/10/2025 Procedure Pass [address] [address] 02/06/2026 12:45 PM EDT Appointment [address] [address] Kaelyn Gallagher MD [address] [place] [phone] [email or web address] documented as of this encounter Visit Diagnoses Not on filedocumented in this encounter Care Teams Scratcher Tender Relationship Specialty Start Date End Date Kaelyn Gallagehr MD [address] [place] [address] PCP - General Family Medicine 04/23/22 4 Kaelyn Gallagher MD [address] [place] [address] PCP - General Family Medicine 11/02/23 Chase Manuel MD [address] [place] [address] [email or web address] Primary Oncologist Medical Oncology 04/14/22 documented as of this encounter Additional Source Comments The information contained in this document represents components of the legal health record. It is not the complete legal health record.[facility]
--- OUTSIDE RECORDS SUMMARY | 2025-05-15 15:38 | XMS_ITS | Encounter Summary ---
Author Organization [facility] Address [address] [facility] [address] [place] [address] Phone Care Team Providers Care Board Liner Operator Name Role Phone Chase Manuel MD Unavailable [phone] Kaelyn Gallagher MD Primary Care Prov ider Kaelyn Gallagher MD Primary Care Prov ider Encounter Details Date Type Department Care Team (Late st Contact Info) Description 05/06/2023 Procedure Pass [facility], [facility] [address] [place] [address] Social History Tobacco Use Types Packs/Day Years [...] st Contact Info) Description 02/10/2025 Procedure Pass [address] [address] 02/06/2026 12:45 PM EDT Appointment [address] [address] Kaelyn Gallagher MD [address] [place] [phone] [email or web address] documented as of this encounter Visit Diagnoses Not on filedocumented in this encounter Care Teams Board Liner Operator Relationship Specialty Start Date End Date Kaelyn Gallagher MD [address] [place] [address] PCP - General Family Medicine 04/23/22 4 Kaelyn Gallagher MD [address] [place] [address] PCP - General Family Medicine 11/02/23 Chase Manuel MD [address] [place] [address] [email or web address] Primary Oncologist Medical Oncology 04/14/22 documented as of this encounter Additional Source Comments The information contained in this document represents components of the legal health record. It is not the complete legal health record.[facility]
--- OUTSIDE RECORDS SUMMARY | 2025-05-15 15:38 | XMS_ITS | Encounter Summary ---
Author Organization [facility] Address [address] [facility] [address] [place] [address] Phone Care Team Providers Care Net Applications Developer Name Role Phone Chase Manuel MD Unavailable [phone] Kaelyn Gallagher MD Primary Care Prov ider Kaelyn Gallagher MD Primary Care Prov ider Encounter Details Date Type Department Care Team (Late st Contact Info) Description 10/15/2023 Procedure Pass [facility], [facility] [address] [place] [address] Social History Tobacco Use Types Packs/Day Years [...] Contact Info) Description 02/10/2025 Procedure Pass [address] [address] 02/06/2026 12:45 PM EDT Appointment [address] [address] Kaelyn Gallagher MD [address] [place] [address] [phone] [email or web address] documented as of this encounter Visit Diagnoses Not on filedocumented in this encounter Care Teams Net Applications Developer Relationship Specialty Start Date End Date Kaelyn Gallagher MD [address] [place] [address] PCP - General Family Medicine 04/23/22 4 Kaelyn Gallagher MD [address] [place] [address] PCP - General Family Medicine 11/02/23 Chase Manuel MD [address] [place] [address] [email or web address] Primary Oncologist Medical Oncology 04/14/22 documented as of this encounter Additional Source Comments The information contained in this document represents components of the legal health record. It is not the complete legal health record.[facility]
--- OUTSIDE RECORDS SUMMARY | 2025-05-15 15:38 | XMS_ITS | Encounter Summary ---
Author Organization [facility] Address [address] [place] [address] Phone Care Team Providers Care Mercury Cell Cleaner Name Role Phone Manfred Miller MD Primary Care Provider [phone] Chase Manuel MD Unavailable [phone] Kaelyn Gallagher MD Primary Care Prov ider Kaelyn Gallagher MD Primary Care Prov ider Reason for Referral * MRI/CAT Scan - Closed Specialty Diagnoses / Procedures Referred By Contac t Referred To Contact Radiology Diagnoses Asymptomatic stenosis of precerebral artery Procedures CT Angio Neck Jani Danielle MD, PhD Phone: tel: fax: [email or web address] Referral ID Status Reason Start Date Expiration Date Visits Re quested Visits Authorized [id number] Closed 04/22/2018 06/21/2018 1 1 Encounter Details Date Type Department Care Team (Latest Contact Info) Description 04/29/2018 Ancillary Orders Virtual Department [address] [place] [address] Jani Danielle MD, PhD [address] [facility] [place] [address] [email or web address] Asymptomatic stenosis of precerebral artery Social History Tobacco Use Types Packs/Day Years [...] st Contact Info) Description 02/10/2025 Procedure Pass [address] [address] 02/06/2026 12:45 PM EDT Appointment [address] [address] Kaelyn Gallagher MD [address] [place] [id number] [email or web address] documented as of this encounter Results * CT ANGIO NECK WITH AND WITHOUT CONTRAST (05/06/2018 12:48 PM EDT) Anatomical Region Laterality Modality Neck Computed Tomogra phy 05/06/2018 12:3 5 PM EDT Impressions 05/06/2018 1:04 PM EDT Calcific atherosclerotic plaquing noted in the carotid bulb bilaterally. No significant internal carotid artery stenosis of concern is noted. Degenerative distal right vertebral artery evident. A left bundle in both right and left vertebral arteries patent throughout their course. The basilar artery is patent proximally. TOTAL CTDIvol: 60.50 mGy S/S: Headache, dizziness, nausea, TIA x2 POS -[id number] Narrative 05/06/2018 1:04 PM EDT COMPARISON:MRI brain April 19, 2018 TECHNIQUE: Precontrast views were obtained in preparation for CT angiogram. Rapid intravenous contrast administration was then performed with multidetector CT obtained from skull base to thoracic inlet. Multiplanar angiographic reformats are evaluated on the workstation. 3-D model generated on CT workstation. Automated exposure control utilized. FINDINGS: There is atherosclerotic plaquing evident in the carotid bulbs bilaterally without significant luminal narrowing evident. Both internal and external carotid arteries are patent bilaterally. No parotid or submandibular pathology is noted. No significant lymphadenopathy is seen. There is moderate degenerative changes in the mid to lower cervical spine. The vertebral arteries are patent bilaterally with the distal right vertebral artery diminutive compared to the left. No occlusive disease or dissection is suggested. The basilar artery is patent proximally. Any stenosis measurement is relative to the distal ICA diameters. Procedure Note Deep Chance MD - 05/06/2018 COMPARISON:MRI brain April 19, 2018 TECHNIQUE: Precontrast views were obtained in preparation for CTangiogram. Rapid intravenous contrast administration was then performedwith multidetector CT obtained from skull base to thoracic inlet.Multiplanar angiographic reformats are evaluated on the workstation. 3-Dmodel generated on CT workstation. Automated exposure control utilized. FINDINGS: There is atherosclerotic plaquing evident in the carotid bulbs bilaterallywithout significant luminal narrowing evident. Both internal and externalcarotid arteries are patent bilaterally. No parotid or submandibular pathology is noted. No significantlymphadenopathy is seen. There is moderate degenerative changes in the mid to lower cervicalspine. The vertebral arteries are patent bilaterally with the distal rightvertebral artery diminutive compared to the left. No occlusive disease ordissection is suggested. The basilar artery is patent proximally. Any stenosis measurement is relative to the distal ICA diameters. IMPRESSION: Calcific atherosclerotic plaquing noted in the carotid bulb bilaterally.No significant internal carotid artery stenosis of concern is noted.Degenerative distal right vertebral artery evident. A left bundle in bothright and left vertebral arteries patent throughout their course. Thebasilar artery is patent proximally. 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 documented in this encounter Additional Health Concerns Infection Onset Date Last Indicated Resolved Time COVID-19 03/19/2021 03/19/2021 04/09/2021 1:24 AM EDT documented as of this encounter Care Teams Mercury Cell Cleaner Relationship Specialty Start Date End Date Manfred Miller MD PCP - General 04/23/17 04/22/22 Kaelyn Gallagher MD [address] [place] [address] PCP - General Family Medicine 04/23/22 Kaelyn Gallagher MD [address] [place] [address] PCP - General Family Medicine 11/02/23 Chase Manuel MD [address] [place] [address] [email or web address] Primary Oncologist Medical Oncology 04/14/22 documented as of this encounter Additional Source Comments The information contained in this document represents components of the legal health record. It is not the complete legal health record.[facility]
--- OUTSIDE RECORDS SUMMARY | 2025-05-15 15:38 | XMS_ITS | Encounter Summary ---
Author Organization [facility] Address [address] [place] [address] Phone Care Team Providers Care Newspaper Distributor Supervisor Name Role Phone Manfred Miller MD Primary Care Provider [phone] Chase Manuel MD Unavailable Kaelyn Gallagher MD Primary Care Prov ider Kaelyn Gallagher MD Primary Care Prov ider Encounter Details Date Type Department Care Team (Late st Contact Info) Description 04/09/2022 Procedure Pass OR Admitting Dept - Virtual Department [address] [place] [address] Social History Tobacco Use Types Packs/Day Years Used Date Smoking Tobacco: Former Cigarettes 0.3 15 Smokeless Tobacco: Never Alcohol Use Standard Drinks/Week Comments Yes 1 (1 standard drink = 0.6 oz pur e alcohol) once a week Comments No Sex and Gender Information Value Date Recorded Sex Assigned at Female 10/11/2017 9:57 AM EDT Legal Sex Female 10:13 PM EDT Gender Identity Female 10/11/2017 9:57 AM EDT Sexual Orientation Not on file documented as of this encounter Functional Status * Calculated C-SSRS Risk Score (Lifetime/Recent) Answer Date of Assessment Author No Risk Indicated 04/09/2022 10:00 AM EDT Maria Antonia Nath nd, RN * Raphine Suicide Severity Rating Scale (Screener/Recent Self-Report) Question Answer Date of Assessment Author 2. Non-Specific Active Suicidal Thoughts (Past 1 Month) No 04/09/2022 10:00 AM EDT Allen Mcduffie RN documented as of this encounter Plan of Treatment Upcoming Encounters Date Type Department Care Team (Late st Contact Info) Description 02/10/2025 Procedure Pass [address] [address] 02/06/2026 12:45 PM EDT Appointment [address] [address] Kaelyn Gallagher MD [address] [place] [address] [email or web address] documented as of this encounter Visit Diagnoses Not on filedocumented in this encounter Care Teams Newspaper Distributor Supervisor Relationship Specialty Start Date End Date Manfred Miller MD PCP - General 04/23/17 04/22/22 Kaelyn Gallagher MD [address] [place] [address] PCP - General Family Medicine 04/23/22 4 Kaelyn Gallagher MD [address] [place] [address] PCP - General Family Medicine 11/02/23 Chase Manuel MD [address] [place] [address] Primary Oncologist Medical Oncology 04/14/22 documented as of this encounter Additional Source Comments The information contained in this document represents components of the legal health record. It is not the complete legal health record.[facility]
--- OUTSIDE RECORDS SUMMARY | 2025-05-15 15:38 | XMS_ITS | Encounter Summary ---
Author Organization [facility] Address [address] [place] [address] Phone Care Team Providers Care Accountant Auditor Name Role Phone Chase Manuel MD Unavailable [phone] Kaelyn Gallagher MD Primary Care Prov ider Encounter Details Date Type Department Care Team (Late st Contact Info) Description 11/05/2023 Procedure Pass [facility] [address] [place] [address] Social History Tobacco Use Types Packs/Day Years [...] st Contact Info) Description 02/10/2025 Procedure Pass [address] [address] 02/06/2026 12:45 PM EDT Appointment [address] [address] Kaelyn Gallagher MD [address] [place] [address] [email or web address] documented as of this encounter Visit Diagnoses Not on filedocumented in this encounter Care Teams Accountant Auditor Relationship Specialty Start Date End Date Kaelyn Gallagher MD [address] [place] [address] PCP - General Family Medicine 11/02/23 Chase Manuel MD [address] [place] [address] Primary Oncologist Medical Oncology 04/14/22 documented as of this encounter Additional Source Comments The information contained in this document represents components of the legal health record. It is not the complete legal health record.[facility]
--- OUTSIDE RECORDS SUMMARY | 2025-05-15 15:38 | XMS_ITS | Encounter Summary ---
Author Organization [facility] Address [address] [place] [address] Phone Care Team Providers Care Central Supply Clerk Name Role Phone Chase Manuel MD Unavailable [phone] Kaelyn Gallagher MD Primary Care Prov ider Kaelyn Gallagher MD Primary Care Prov ider Encounter Details Date Type Department Care Team (Latest Contact Info) Description 07/09/2022 Transcribe Orders Virtual Department [address] [place] [address] Lily Moore MD [address] [place] [address], [address] [place] [id number] [email or web address] Encounter for screening mammogram for malignant neoplasm of breast (Primary Dx) Social History Tobacco Use Types [...] st Contact Info) Description 02/10/2025 Procedure Pass [facility], [facility] [address] [place] [address] 02/06/2026 12:45 PM EDT Appointment [facility], [facility] [address] [place] [address] Kaelyn Gallagher MD [address] [place] [address] [email or web address] documented as of this encounter Visit Diagnoses Diagnosis Encounter for screening mammogram for malignant neoplasm of breast- Primary documented in this encounter Care Teams Central Supply Clerk Relationship Specialty Start Date End Date Kaelyn Gallagher MD [address] [place] [address] PCP - General Family Medicine 04/23/22 4 Kaelyn Gallagher MD [address] [place] [address] PCP - General Family Medicine 11/02/23 Chase Manuel MD [address] [place] [address] Primary Oncologist Medical Oncology 04/14/22 documented as of this encounter Additional Source Comments The information contained in this document represents components of the legal health record. It is not the complete legal health record.[facility]
--- OUTSIDE RECORDS SUMMARY | 2025-05-15 15:38 | XMS_ITS | Encounter Summary ---
Author Organization [facility] Address [address] [place] [address] Phone Care Team Providers Care Commercial Finance Analyst Name Role Phone Manfred Miller MD Primary Care Provider [phone] Chase Manuel MD Unavailable [phone] Kaelyn Gallagher MD Primary Care Prov ider Kaelyn Gallagher MD Primary Care Prov ider Encounter Details Date Type Department Care Team (Late st Contact Info) Description 04/29/2018 Procedure Pass [facility] Ct Scan [address] [address] Social History Tobacco Use Types Packs/Day Years [...] st Contact Info) Description 02/10/2025 Procedure Pass [address] [address] 02/06/2026 12:45 PM EDT Appointment [address] [address] Kaelyn Gallagher MD [address] [place] [address] [email or web address] documented as of this encounter Visit Diagnoses Not on filedocumented in this encounter Additional Health Concerns Infection Onset Date Last Indicated Resolved Time COVID-19 03/19/2021 03/19/2021 04/09/2021 1:24 AM EDT documented as of this encounter Care Teams Commercial Finance Analyst Relationship Specialty Start Date End Date Manfred Miller MD PCP - General 04/23/17 04/22/22 Kaelyn Gallagher MD [address] [place] [address] [email or web address] PCP - General Family Medicine 04/23/22 4 Kaelyn Gallagher MD [address] [place] [address] PCP - General Family Medicine 11/02/23 Chase Manuel MD [address] [place] [address] [email or web address] Primary Oncologist Medical Oncology 04/14/22 documented as of this encounter Additional Source Comments The information contained in this document represents components of the legal health record. It is not the complete legal health record.[facility]
--- OUTSIDE RECORDS SUMMARY | 2025-05-15 15:38 | XMS_ITS | Encounter Summary ---
Author Organization [facility] Address [address] [place] [address] Phone Care Team Providers Care Merchandise Displayer Name Role Phone Chase Manuel MD Unavailable [phone] Kaelyn Gallagher MD Primary Care Prov ider Kaelyn Gallagher MD Primary Care Prov ider Encounter Details Date Type Department Care Team (Late st Contact Info) Description 10/15/2023 Procedure Pass [facility], [facility] [address] [place] [address] Social History Tobacco Use Types Packs/Day Years [...] st Contact Info) Description 02/10/2025 Procedure Pass [address] [address] 02/06/2026 12:45 PM EDT Appointment [address] [address] Kaelyn Gallagher MD [address] [place] [id number] [email or web address] documented as of this encounter Visit Diagnoses Not on filedocumented in this encounter Care Teams Merchandise Displayer Relationship Specialty Start Date End Date Kaelyn Gallagher MD [address] [place] [address] PCP - General Family Medicine 04/23/22 4 Kaelyn Gallagher MD [address] [place] [address] PCP - General Family Medicine 11/02/23 Chase Manuel MD [address] [place] [address] [email or web address] Primary Oncologist Medical Oncology 04/14/22 documented as of this encounter Additional Source Comments The information contained in this document represents components of the legal health record. It is not the complete legal health record.[facility]
--- OUTSIDE RECORDS SUMMARY | 2025-05-15 15:38 | XMS_ITS | Encounter Summary ---
Author Organization [facility] Address [address] [place] [id number] Phone Care Team Providers Care Respiratory Supervisor Name Role Phone Chase Manuel MD Unavailable [phone] Kaelyn Gallagher MD Primary Care Prov ider Kaelyn Gallagher MD Primary Care Prov ider Reason for Referral * MRI/CAT Scan - Closed Specialty Diagnoses / Procedures Referred By Contac t Referred To Contact Radiology Diagnoses Collapsed vertebra, not elsewhere classified, thoracic region, initial encounter for fracture Procedures MRI Thoracic Spine CHG MRI, DORSAL SPINE Kaelyn Gallagher MD [address] [place] [address] Phone: tel: fax: [email or web address]:[email or web address] Referral ID Status Reason Start Date Expiration Date Visits Re quested Visits Authorized [id number] Closed 10/22/2023 12/21/2023 1 1 * MRI/CAT Scan - Closed Specialty Diagnoses / Procedures Referred By Contac t Referred To Contact Radiology Diagnoses Collapsed vertebra, not elsewhere classified, thoracic region, initial encounter for fracture Procedures MRI Lumbar Spine CHG MRI, LUMBAR SPINE Kaelyn Gallagher MD [address] [place] [address] Phone: tel: fax: [email or web address]:[email or web address] Referral ID Status Reason Start Date Expiration Date Visits Re quested Visits Authorized [id number] Closed 10/21/2023 12/20/2023 1 1 Encounter Details Date Type Department Care Team (Late Contact Info) Description 10/15/2023 Transcribe Orders Virtual Department [address] [place] [phone] Kaelyn Gallagher MD [address] [place] [id number] [email or web address] Collapsed vertebra, not elsewhere classified, thoracic region, initial encounter for fracture (Primary Dx) Social History Tobacco Use Types [...] Upcoming Encounters Date Type Department Care Team ([facility] Contact Info) Description 02/10/2025 Procedure Pass [address] [address] 02/06/2026 12:45 PM EDT Appointment [address] [address] Kaelyn Gallagher MD [address] [place] [address] [email or web address] documented as of this encounter Results * MRI LUMBAR SPINE (BONE) WITHOUT CONTRAST (11/03/2023 11:53 AM EDT) Anatomical Region Laterality Modality L-spine Magnetic Resonan ce 11/03/2023 6:23 PM EDT Impressions 11/04/2023 7:16 PM EDT 1. Recent/active, complex morphology osteoporotic T12 compression fracture. 2. Chronic/interactive L2 compression fracture. 3. Degenerative changes with only mild effect upon central canal and neural foramen. Narrative 11/04/2023 7:16 PM EDT MRI LUMBAR SPINE (BONE) WITHOUT CONTRAST Referring clinician's provided indication for this examination in Epic: Outside Radiology Order; compression fracture of throaci vertebra Additional clinical information: Recent fall. T12 and L2 compression fractures. Assessment of fracture morphology and activity required prior to potential treatment with kyphoplasty. TECHNIQUE: MRI LUMBAR SPINE (BONE) WITHOUT CONTRAST Multi-sequence, multi-planar MRI of the lumbar spine was performed without intravenous contrast. COMPARISON: Correlation made with recent thoracic MRI. FINDINGS: LUMBAR SPINE: Alignment and Vertebrae: Whole spine MRI shows conventional number of vertebral segments. Moderate severity compression fracture affects T12 and mild to moderate compression affects L2, approximate 60% and 40% compressed respectively. Diffuse edema evident at T12 level with fracture cleft formation paralleling superior endplate and presence of diffuse vertebral body edema. Mild retropulsion of upper aspect of T12. L2 compression is maximal affecting inferior endplate. There is no marrow edema. No suggestion of mass at either site. Other lumbar levels are noncompressed. Marrow: No bone marrow replacing lesion. Discs and Endplates: Multilevel disc desiccation. Small disc bulges and multilevel facet arthropathy. Mild narrowing of central canal at multiple levels without constriction of the cauda equina. Mild left-sided foraminal stenoses and mild to moderate right foraminal stenosis L2-L3 and L3-L4 levels, without effacement of foraminal fat signal. Conus: Normal conus extends down to L1-L2 level. Soft Tissues: Normal. No prevertebral edema. Other Findings: None. Findings by level: T12-L1: Angulation of bone posteriorly upper T12 level without encroachment upon the lower thoracic cord. No foraminal stenosis. No disc herniation. L1-L2: Normal. No spinal or foraminal stenosis. L2-L3: Mild diffuse disc bulging. Small bilateral central disc herniations. Mild narrowing of central canal. Mild to moderate right and minimal left foraminal stenosis. L3-L4: Disc space narrowing and mild diffuse disc bulging. Mild facet arthropathy with infolding of ligamentum flavum. Mild central and igmu-uf-wvwtydjl right foraminal stenosis without nerve root constriction. No left foraminal stenosis. L4-L5: Moderate facet arthropathy. Mild anterolisthesis L4 on L5. Mild posterior disc herniation. Mild narrowing of central canal and neural foramen without evidence of nerve root constriction. L5-S1: Mild posterior disc herniation and mild to moderate bilateral facet arthropathy. No central stenosis. Mild bilateral foraminal stenosis without nerve root constriction. Procedure Note Kd Lipscomb MD - 11/04/2023 MRI LUMBAR SPINE (BONE) WITHOUT CONTRAST Referring clinician's provided indication for this examination in Epic:Outside Radiology Order; compression fracture of throaci vertebra Additional clinical information: Recent fall. T12 and L2 compressionfractures. Assessment of fracture morphology and activity required priorto potential treatment with kyphoplasty. TECHNIQUE: MRI LUMBAR SPINE (BONE) WITHOUT CONTRAST Multi-sequence, multi-planar MRI of the lumbar spine was performed withoutintravenous contrast. COMPARISON: Correlation made with recent thoracic MRI. FINDINGS: LUMBAR SPINE: Alignment and Vertebrae: Whole spine MRI shows conventional number ofvertebral segments. Moderate severity compression fracture affects T12 andmild to moderate compression affects L2, approximate 60% and 40%compressed respectively. Diffuse edema evident at T12 level with fracturecleft formation paralleling superior endplate and presence of diffusevertebral body edema. Mild retropulsion of upper aspect of T12. [id number] is maximal affecting inferior endplate. There is no marrowedema. No suggestion of mass at either site. Other lumbar levels arenoncompressed. Marrow: No bone marrow replacing lesion. Discs and Endplates: Multilevel disc desiccation. Small disc bulges andmultilevel facet arthropathy. Mild narrowing of central canal at multiplelevels without constriction of the cauda equina. Mild left-sided foraminalstenoses and mild to moderate right foraminal stenosis L2-L3 and L3-V8iltltv, without effacement of foraminal fat signal. Conus: Normal conus extends down to L1-L2 level. Soft Tissues: Normal. No prevertebral edema. Other Findings: None. Findings by level: T12-L1: Angulation of bone posteriorly upper T12 level withoutencroachment upon the lower thoracic cord. No foraminal stenosis. No discherniation. L1-L2: Normal. No spinal or foraminal stenosis. L2-L3: Mild diffuse disc bulging. Small bilateral central discherniations. Mild narrowing of central canal. Mild to moderate right andminimal left foraminal stenosis. L3-L4: Disc space narrowing and mild diffuse disc bulging. Mild facetarthropathy with infolding of ligamentum flavum. Mild central gcsqbwc-qj-ajhlucno right foraminal stenosis without nerve root constriction.No left foraminal stenosis. L4-L5: Moderate facet arthropathy. Mild anterolisthesis L4 on L5. Mildposterior disc herniation. Mild narrowing of central canal and neuralforamen without evidence of nerve root constriction. L5-S1: Mild posterior disc herniation and mild to moderate bilateral facetarthropathy. No central stenosis. Mild bilateral foraminal stenosiswithout nerve root constriction. IMPRESSION: 1. Recent/active, complex morphology osteoporotic T12 compressionfracture. 2. Chronic/interactive L2 compression fracture. 3. Degenerative changes with only mild effect upon central canal andneural foramen. us Kaelyn Esquivel MD IMG MR XSPECIALTY Final Result * MRI THORACIC SPINE (BONE) WITHOUT CONTRAST (11/03/2023 11:13 AM EDT) Anatomical Region Laterality Modality T-spine Magnetic Resonan ce 11/03/2023 6:2 3 PM EDT Impressions 11/04/2023 7:04 PM EDT 1. Complex morphology recent and active osteoporotic T12 compression fracture with mild posterior angulation, without encroachment upon the caudal thoracic cord. 2. No additional active compression fracture. 3. No central or foraminal stenosis. Narrative 11/04/2023 7:04 PM EDT MRI THORACIC SPINE (BONE) WITHOUT CONTRAST Referring clinician's provided indication for this examination in [facility]: Outside Radiology Order; compression fracture of thoracic vertebra Additional clinical information: Recent fall. Severe back pain requiring treatment with opioids. Decreased range of motion and difficulty with standing and walking. TECHNIQUE: MRI THORACIC SPINE (BONE) WITHOUT CONTRAST Multi-sequence, multi-planar MRI of the thoracic spine was performed without intravenous contrast. COMPARISON: Correlation made with outside CT imaging which shows L2 compression fracture and suggest T12 compression fracture, age uncertain age. FINDINGS: THORACIC SPINE: Alignment and Vertebrae: Whole spine images show conventional number of vertebral segments. Moderate severity compression fracture affects T12, approximately 60% compressed. Fracture cleft formation through mid to superior anterior vertebral body. Diffuse vertebral edema. No additional thoracic compression fracture. L2 lumbar compression fracture is shown to be without edema, apparently chronic. Marrow: Marrow edema evident T12 level in keeping with osteoporotic compression fracture. No mass or paraspinal infiltration. Discs and Endplates: Age-appropriate appearance to disc spaces. Mild disc space narrowing. No sizable disc herniation. Small central to right central disc herniation T8-T9 and midline disc herniation T10-T11. No central stenosis. No foraminal stenosis. Spinal Cord: Mild angulation of posterior aspect of T12 vertebral body mildly encroaches upon central canal which is without important stenosis. No encroachment upon the caudal aspect of the thoracic cord. Normal. No spinal cord compression or signal abnormality. Soft Tissue: Normal. No prevertebral edema. Other Findings: None. Procedure Note Kd Lipscomb MD - 11/04/2023 MRI THORACIC SPINE (BONE) WITHOUT CONTRAST Referring clinician's provided indication for this examination in [facility]:Outside Radiology Order; compression fracture of thoracic vertebra Additional clinical information: Recent fall. Severe back pain requiringtreatment with opioids. Decreased range of motion and difficulty withstanding and walking. TECHNIQUE: MRI THORACIC SPINE (BONE) WITHOUT CONTRAST Multi-sequence, multi-planar MRI of the thoracic spine was performedwithout intravenous contrast. COMPARISON: Correlation made with outside CT imaging which shows [id number] fracture and suggest T12 compression fracture, age uncertainage. FINDINGS: THORACIC SPINE: Alignment and Vertebrae: Whole spine images show conventional number ofvertebral segments. Moderate severity compression fracture affects T12,approximately 60% compressed. Fracture cleft formation through mid tosuperior anterior vertebral body. Diffuse vertebral edema. No additionalthoracic compression fracture. L2 lumbar compression fracture is shown jv without edema, apparently chronic. Marrow: Marrow edema evident T12 level in keeping with osteoporoticcompression fracture. No mass or paraspinal infiltration. Discs and Endplates: Age-appropriate appearance to disc spaces. Mild discspace narrowing. No sizable disc herniation. Small central to rightcentral disc herniation T8-T9 and midline disc herniation T10-T11. Nocentral stenosis. No foraminal stenosis. Spinal Cord: Mild angulation of posterior aspect of T12 vertebral bodymildly encroaches upon central canal which is without important stenosis.No encroachment upon the caudal aspect of the thoracic cord. Normal. Nospinal cord compression or signal abnormality. Soft Tissue: Normal. No prevertebral edema. Other Findings: None. IMPRESSION: 1. Complex morphology recent and active osteoporotic T12 compressionfracture with mild posterior angulation, without encroachment upon thecaudal thoracic cord. 2. No additional active compression fracture. 3. No central or foraminal stenosis. Kaelyn Esquivel MD IMG MR XSPECIALTY Final Result documented in this encounter Visit Diagnoses Diagnosis Collapsed vertebra, not elsewhere classified, thoracic region, initial encounter for fracture- Primary Collapsed vertebra, not elsewhere classified, thoracic region, initial encounter for fracture Collapsed vertebra, not elsewhere classified, thoracic region, initial encounter for fracture documented in this encounter Care Teams Respiratory Supervisor Relationship Specialty Start Date End Date Kaelyn Gallagher MD [address] [place] [address] PCP - General Family Medicine 04/23/22 4 Kaelyn Gallagher MD [address] [place] [address] [email or web address] PCP - General Family Medicine 11/02/23 Chase Manuel MD [address] [place] [address] [email or web address] Primary Oncologist Medical Oncology 04/14/22 documented as of this encounter Additional Source Comments The information contained in this document represents components of the legal health record. It is not the complete legal health record.[facility]
--- OUTSIDE RECORDS SUMMARY | 2025-05-15 15:39 | XMS_ITS | Encounter Summary ---
Author Organization [facility] Address [address] [place] [address] Phone Care Team Providers Care Sheet Folder Name Role Phone Chase Manuel MD Unavailable [phone] Kaelyn Gallagher MD Primary Care Prov ider Encounter Details Date Type Department Care Team (Late st Contact Info) Description 01/18/2024 Procedure Pass [facility], [address] [address] Social History Tobacco Use Types Packs/Day Years [...] st Contact Info) Description 02/10/2025 Procedure Pass [address] [address] 02/06/2026 12:45 PM EDT Appointment [address] [address] Kaelyn Gallagher MD [address] [place] [address] [email or web address] documented as of this encounter Visit Diagnoses Not on filedocumented in this encounter Care Teams Sheet Folder Relationship Specialty Start Date End Date Kaelyn Gallagher MD [address] [place] [address] PCP - General Family Medicine 11/02/23 Chase Manuel MD [address] [place] [address] Primary Oncologist Medical Oncology 04/14/22 documented as of this encounter Additional Source Comments The information contained in this document represents components of the legal health record. It is not the complete legal health record.[facility]
--- OUTSIDE RECORDS SUMMARY | 2025-05-15 15:39 | XMS_ITS | Encounter Summary ---
Author Organization [facility] Address [address] [place] [address] Phone Care Team Providers Care Commercial Litigation Associate Name Role Phone Chase Manuel MD Unavailable [phone] Kaelyn Gallagher MD Primary Care Prov ider Encounter Details Date Type Department Care Team (Late st Contact Info) Description 01/14/2024 Procedure Pass [facility], [facility] [address] [place] [address] Social History Tobacco Use Types Packs/Day Years [...] st Contact Info) Description 02/10/2025 Procedure Pass [address] [address] 02/06/2026 12:45 PM EDT Appointment [address] [address] Kaelyn Gallagher MD [address] [place] [address] [email or web address] documented as of this encounter Visit Diagnoses Not on filedocumented in this encounter Care Teams Commercial Litigation Associate Relationship Specialty Start Date End Date Kaelyn Gallagher MD [address] [place] [address] PCP - General Family Medicine 11/02/23 Chase Manuel MD [address] [place] [address] Primary Oncologist Medical Oncology 04/14/22 documented as of this encounter Additional Source Comments The information contained in this document represents components of the legal health record. It is not the complete legal health record.[facility]
--- OUTSIDE RECORDS SUMMARY | 2025-05-15 15:39 | XMS_ITS | Encounter Summary ---
Author Organization [facility] Address [address] [place] [address] Phone Care Team Providers Care Optometry Teacher Name Role Phone Manfred Miller MD Primary Care Provider [phone] Chase Manuel MD Unavailable Kaelyn Gallagher MD Primary Care Prov ider Kaelyn Gallagher MD Primary Care Prov ider Reason for Referral * Outpatient Procedure - Closed Specialty Diagnoses / Procedures Referred By Contac t Referred To Contact Radiology Diagnoses Abnormal mammogram of right breast Procedures Mammogram Diagnostic Post Procedure (Right) Lily Moore MD Phone: tel: fax: [email or web address] Referral ID Status Reason Start Date Expiration Date Visits Re quested Visits Authorized [id number] Closed 03/12/2022 03/12/2023 1 1 Encounter Details Date Type Department Care Team (Late st Contact Info) Description 03/12/2022 Ancillary Orders [facility] [address] [place] [address] Lily Moore MD [address] [facility], 2nd [place] [address] [email or web address] Abnormal mammogram of right breast Social History Tobacco Use Types Packs/Day Years [...] Contact Info) Description 02/10/2025 Procedure Pass [address] [address] 02/06/2026 12:45 PM EDT Appointment [address] [address] Kaelyn Gallagher MD [address] [place] [phone] 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 Surgical consultation is recommended. Impressions 03/12/2022 10:27 AM EDT Successful ultrasound-guided biopsy of the 1.1 cm right breast mass at 10:00, 5 cm from the nipple. Pathology results are pending. Narrative 03/12/2022 10:27 AM EDT PROCEDURE: Ultrasound-guided right breast core biopsy HISTORY: 81-year-old female presents for ultrasound-guided biopsy of 1.1 cm right breast mass at 10:00, 5 cm from the nipple COMPARISON: Outside hospital ultrasound dated 02/04/2022 FINDINGS: Initially, the risks, benefits and alternatives were explained patient. Decision-making capabilities intact, and the patient agreed to proceed. And informed consent form was obtained and placed in the chart. Using ultrasound guidance a site for biopsy of the mass in the 10:00 position of the right breast was chosen. The site was aseptically prepared and anesthetized. A total of 5 cc of 1% lidocaine was injected. Subsequently, a 14-gauge automated biopsy needle device was introduced into the breast. A total of 5 passes were made through the mass. Samples which were obtained were placed in a jar which was labeled with the patient's information and sent to the lab for analysis. A biopsy clip marker was placed within the mass. This was confirmed on follow-up CC and 90 degrees ML mammograms. The patient tolerated the procedure well and had no immediate complications. Discharge instructions were discussed with her. She was given a set of discharge instructions to take home. She left the ultrasound suite in stable condition. Procedure Note Romario Alonzo MD - 03/12/2022 PROCEDURE: Ultrasound-guided right breast core biopsy HISTORY: 81-year-old female presents for ultrasound-guided biopsy of 1.1cm right breast mass at 10:00, 5 cm from the nipple COMPARISON: Outside hospital ultrasound dated 02/04/2022 FINDINGS: Initially, the risks, benefits and alternatives were explained patient.Decision-making capabilities intact, and the patient agreed to proceed.And informed consent form was obtained and placed in the chart. Usingultrasound guidance a site for biopsy of the mass in the 10:00 position ofthe right breast was chosen. The site was aseptically prepared andanesthetized. A total of 5 cc of 1% lidocaine was injected. Subsequently,a 14-gauge automated biopsy needle device was introduced into the breast.A total of 5 passes were made through the mass. Samples which wereobtained were placed in a jar which was labeled with the patient'sinformation and sent to the lab for analysis. A biopsy clip marker wasplaced within the mass. This was confirmed on follow-up CC and 90 degreesML mammograms. The patient tolerated the procedure well and had no immediatecomplications. Discharge instructions were discussed with her. She wasgiven a set of discharge instructions to take home. She left theultrasound suite in stable condition. IMPRESSION: Successful ultrasound-guided biopsy of the 1.1 cm right breast mass at10:00, 5 cm from the nipple. Pathology results are pending. Lily Moore MD IMG MG EXAMS Edited Res ult - Final documented in this encounter Visit Diagnoses Diagnosis Abnormal mammogram of right breast Abnormal mammogram of right breast documented in this encounter Care Teams Optometry Teacher Relationship Specialty Start Date End Date Manfred Miller MD PCP - General 04/23/17 04/22/22 Kaelyn Gallagher MD [address] [place] [address] PCP - General Family Medicine 04/23/22 4 Kaelyn Gallagher MD [address] [place] [address] PCP - General Family Medicine 11/02/23 Chase Manuel MD [address] [place] [address] Primary Oncologist Medical Oncology 04/14/22 documented as of this encounter Additional Source Comments The information contained in this document represents components of the legal health record. It is not the complete legal health record.[facility]
== END 2025-05-15 14:19 | disposition home or self-care (01) ==
LOC: HO.HCS 13:31
PROVIDERS: PCP Family Medicine; Visit Provider Internal Medicine
DX: R00.1 Bradycardia, unspecified (principal); I49.3 Ventricular premature depolarization; I48.0 Paroxysmal atrial fibrillation; I10 Essential (primary) hypertension; E78.5 Hyperlipidemia, unspecified
CPT/HCPCS: 93280; 99214; G2211

== ENCOUNTER → 2025-05-15 13:31 | Outpatient (BNVA) | payer MEDICARE, SELFPAY | PROVIDERS: PCP Family Medicine; Visit Provider Internal Medicine | DX: Z45.010 Encounter for checking and testing of cardiac pacemaker pulse generator [battery] (principal); I48.0 Paroxysmal atrial fibrillation; I49.3 Ventricular premature depolarization; R00.1 Bradycardia, unspecified; I10 Essential (primary) hypertension; E78.5 Hyperlipidemia, unspecified | CPT/HCPCS: 93280; 99212 ==